=== PATIENT | female | born 1945 | race American Indian/Alaskan Native ===

== ENCOUNTER 2016-02-16 16:35 | Emergency (ER) | payer MEDICARE ==
[2016-02-16 16:47] VITALS: BP 133/81
--- NOTE | 2016-02-16 21:39 | Emergency Department Report ---
- General Chief complaint: Skin/Abscess/Foreign Body Stated complaint: COTTON BALL LODGE IN NOSE Time Seen by Provider: 02/16/16 21:17 Source: patient Mode of arrival: Ambulatory Limitations: No Limitations - History of Present Illness Initial comments: 70-year-old female past medical history schizophrenia presents with complaint of 2-3 days of sinus congestion. Patient states she stuck cotton ball up left side nose due to runny nose and could not extract it at home. Patient states she stuck it in her nose at approximately 1 PM today. Denies any fever or chills, states she has been sneezing frequently lately. Cotton ball visible on external inspection of left nostril where she feels pressure. Patient awake alert and oriented 3, fully cooperative. MD complaint: other (cotton ball) Onset/Timin -: hour(s) Tetanus Up to Date: yes Severity: mild Severity scale (0 -10): 2 Quality: other (left nostril pressure) Consistency: constant Improves with: none Worsens with: none Context: none Associated symptoms: denies other symptoms Treatments Prior to Arrival: none - Related Data Home Medications Medication Instructions Recorded Confirmed Last Taken Ziprasidone [Geodon] 40 mg PO DAILY 09/26/14 10/29/15 10/28/15 Mirabegron [Myrbetriq] 25 mg PO QDAY 10/29/15 11/01/15 2 Weeks Ago Nitrofurantoin [place]/M-Cryst 100 mg PO Q12HR 10/29/15 11/01/15 1 Week Ago [Macrobid CAP] Benztropine [Cogentin] 1 tab PO BID 11/01/15 11/01/15 10/28/15 Previous Rx's Medication Instructions Recorded Last Taken Type Famotidine [Pepcid] 20 mg PO BID #60 tablet 09/13/14 1 Month Ago Rx traMADol [Ultram 50 MG tab] 50 mg PO Q6HR PRN #20 tablet 01/04/15 1 Month Ago Rx Acetaminophen [Mapap] 500 mg PO Q8HR PRN #25 capsule 07/14/15 2 Weeks Ago Rx Amoxicillin/K Clav Tab [Augmentin 1 tab PO Q12HR #20 tab 02/16/16 Unknown Rx 875 mg] Azelastine 0.1% (Nf) [Astelin (Nf)] 137 mcg NS QDAY #1 bottle 02/16/16 Unknown Rx Ibuprofen [Motrin] 400 mg PO Q8H PRN #20 tablet 02/16/16 Unknown Rx Allergies Allergy/AdvReac Type Severity Reaction Status Date / Time No Known Allergies Allergy Verified 02/24/14 10:35 Abscess Boil HPI - HPI Chief Complaint: Skin/Abscess/Foreign Body Stated Complaint: COTTON BALL LODGE IN NOSE Time Seen by Provider: 02/16/16 21:17 Home Medications: Home Medications Medication Instructions Recorded Confirmed Last Taken Ziprasidone [Geodon] 40 mg PO DAILY 09/26/14 10/29/15 10/28/15 Mirabegron [Myrbetriq] 25 mg PO QDAY 10/29/15 11/01/15 2 Weeks Ago Nitrofurantoin [place]/M-Cryst 100 mg PO Q12HR 10/29/15 11/01/15 1 Week Ago [Macrobid CAP] Benztropine [Cogentin] 1 tab PO BID 11/01/15 11/01/15 10/28/15 Previous Rx's Medication Instructions Recorded Last Taken Type Famotidine [Pepcid] 20 mg PO BID #60 tablet 09/13/14 1 Month Ago Rx traMADol [Ultram 50 MG tab] 50 mg PO Q6HR PRN #20 tablet 01/04/15 1 Month Ago Rx Acetaminophen [Mapap] 500 mg PO Q8HR PRN #25 capsule 07/14/15 2 Weeks Ago Rx Amoxicillin/K Clav Tab [Augmentin 1 tab PO Q12HR #20 tab 02/16/16 Unknown Rx 875 mg] Azelastine 0.1% (Nf) [Astelin (Nf)] 137 mcg NS QDAY #1 bottle 02/16/16 Unknown Rx Ibuprofen [Motrin] 400 mg PO Q8H PRN #20 tablet 02/16/16 Unknown Rx Allergies/Adverse Reactions: Allergies Allergy/AdvReac Type Severity Reaction Status Date / Time No Known Allergies Allergy Verified 02/24/14 10:35 ED Review of Systems ROS: Stated complaint: COTTON BALL LODGE IN NOSE Other details as noted in HPI Constitutional: denies: chills, fever Eyes: denies: eye pain, eye discharge, vision change ENT: congestion (left-sided nostril pressure). denies: ear pain, throat pain Respiratory: denies: cough, shortness of breath, wheezing Cardiovascular: denies: chest pain, palpitations Endocrine: no symptoms reported Gastrointestinal: denies: abdominal pain, nausea, diarrhea Genitourinary: denies: urgency, dysuria, discharge Musculoskeletal: denies: back pain, joint swelling, arthralgia Skin: denies: rash, lesions Neurological: denies: headache, weakness, paresthesias Psychiatric: denies: anxiety, depression Hematological/Lymphatic: denies: easy bleeding, easy bruising ED Past Medical Hx - Past Medical History Hx Hypertension: Yes Hx Heart Attack/AMI: No Hx GERD: Yes Hx Liver Disease: No Hx Renal Disease: No Hx Sickle Cell Disease: No Hx Arthritis: Yes Hx Seizures: No Hx Psychiatric Treatment: Yes (schizophrenia) Hx Asthma: Yes Hx COPD: No Hx HIV: No Additional medical history: Heart racing - Surgical History Hx Pacemaker: No Hx Internal Defibrillator: No Additional Surgical History: hemmorhoidectomy. tubal ligation - Social History Smoking Status: Never Smoker - Medications Home Medications: Home Medications Medication Instructions Recorded Confirmed Last Taken Type Famotidine [Pepcid] 20 mg PO BID #60 tablet 09/13/14 11/01/15 1 Month Ago Rx Ziprasidone [Geodon] 40 mg PO DAILY 09/26/14 10/29/15 10/28/15 History traMADol [Ultram 50 MG tab] 50 mg PO Q6HR PRN #20 tablet 01/04/15 11/01/15 1 Month Ago Rx Acetaminophen [Mapap] 500 mg PO Q8HR PRN #25 capsule 07/14/15 11/01/15 2 Weeks Ago Rx Mirabegron [Myrbetriq] 25 mg PO QDAY 10/29/15 11/01/15 2 Weeks Ago History Nitrofurantoin [place]/M-Cryst 100 mg PO Q12HR 10/29/15 11/01/15 1 Week Ago History [Macrobid CAP] Benztropine [Cogentin] 1 tab PO BID 11/01/15 11/01/15 10/28/15 History Amoxicillin/K Clav Tab [Augmentin 1 tab PO Q12HR #20 tab 02/16/16 Unknown Rx 875 mg] Azelastine 0.1% (Nf) [Astelin (Nf)] 137 mcg NS QDAY #1 bottle 02/16/16 Unknown Rx Ibuprofen [Motrin] 400 mg PO Q8H PRN #20 tablet 02/16/16 Unknown Rx ED Physical Exam - General Limitations: No Limitations General appearance: alert, in no apparent distress - Head Head exam: Present: atraumatic, normocephalic - Eye Eye exam: Present: normal appearance - ENT ENT exam: Present: mucous membranes moist, other (visible cotton ball in the left nostril) - Neck Neck exam: Present: normal inspection - Respiratory Respiratory exam: Present: normal lung sounds bilaterally. Absent: respiratory distress - Cardiovascular Cardiovascular Exam: Present: regular rate, normal rhythm. Absent: systolic murmur, diastolic murmur, rubs, gallop - GI/Abdominal GI/Abdominal exam: Present: soft, normal bowel sounds - Extremities Exam Extremities exam: Present: normal inspection - Back Exam Back exam: Present: normal inspection - Neurological Exam Neurological exam: Present: alert, oriented X3 - Psychiatric Psychiatric exam: Present: normal affect, normal mood - Skin Skin exam: Present: warm, dry, intact, normal color. Absent: rash ED Course Vital Signs 02/16/16 16:43 Temperature 98.8 F Pulse Rate 70 Respiratory 16 Rate Blood Pressure 133/81 O2 Sat by Pulse 97 Oximetry - Foreign Body Removal Nose Location: nostril (L) Suspected Foreign Body: other (multiple) Foreign Body Removal Technique: alligator Patient Tolerated Procedure: well Complications: none (, Vikas removed easily no bleeding no signs of pus drainage , patient felt immediate relief after extraction, easily extracted) ED Medical Decision Making - Medical Decision Making A/P: Foreign body removal left nostril, cotton ball 1-procedure tolerated well no bleeding no pus drainage, patient feels immediate relief 2-will treat patient for sinusitis empirically, Augmentin twice a day 10 days 3-follow-up with primary care doctor 4-I advised patient to return to the ED if she experiences fever chills or pus drainage from nostrils Critical care attestation.: If time is entered above; I have spent that time in minutes in the direct care of this critically ill patient, excluding procedure time. ED Disposition Clinical Impression: Foreign body in nostril, initial encounter Qualifiers: Encounter type: initial encounter Qualified Code(s): T17.1XXA - Foreign body in nostril, initial encounter Disposition: DISCHARGED TO HOME OR SELFCARE Is pt being admited?: No Does the pt Need Aspirin: No Condition: Stable Instructions: Sinusitis (ED), Nasal Foreign Body in Children (ED) Additional Instructions: Nasal foreign body children instructions given, meant for adult, no option for adults Prescriptions: Azelastine 0.1% (Nf) [Astelin (Nf)] 137 mcg NS QDAY #1 bottle Amoxicillin/K Clav Tab [Augmentin 875 mg] 1 tab PO Q12HR #20 tab Ibuprofen [Motrin] 400 mg PO Q8H PRN #20 tablet PRN Reason: Pain Time of Disposition: 21:42
== END 2016-02-16 21:44 | disposition home or self-care (01) ==
LOC: ED 16:35
DX: T17.1XXA Foreign body in nostril, initial encounter (principal); K21.9 Gastro-esophageal reflux disease without esophagitis; F20.9 Schizophrenia, unspecified; J45.909 Unspecified asthma, uncomplicated; X58.XXXA Exposure to other specified factors, initial encounter; Y93.9 Activity, unspecified; Y92.9 Unspecified place or not applicable; Y99.9 Unspecified external cause status

== ENCOUNTER 2016-11-28 21:35 | Emergency (ER) | payer MEDICARE ==
[2016-11-28 23:48] VITALS: BP 130/68
--- NOTE | 2016-11-29 00:51 | XRay Report ---
FINAL REPORT EXAM: XR FOOT 2V RT HISTORY: swollen rt foot TECHNIQUE: Two views of the right foot were submitted. FINDINGS: There is no evidence of acute fracture or dislocation. There is moderate arthritic changes at the level of the 2nd metatarsophalangeal joint. Additional arthritic changes are seen the level of the medial cuneiform 1st metatarsal joint. There is additional arthritic changes of the interphalangeal joint of the great toe. The soft tissues reveal generalized mild swelling around the entire foot. IMPRESSION: Polyarticular arthritic changes with generalized soft tissue swelling around the foot. No evidence of acute fracture or osteomyelitis.
--- NOTE | 2016-11-29 01:49 | Emergency Department Report ---
ED Lower Extremity HPI - General Chief Complaint: Extremity Injury, Lower Stated Complaint: FOOT INJURY Time Seen by Provider: 11/29/16 01:37 Source: patient Mode of arrival: Ambulatory Limitations: No Limitations - History of Present Illness Initial Comments: pt is a 71 y/o aaf who presents foot pain and swelling x 1 month pt denies hx of dm II , does endorse hx of arthitis and recurrent tinea pedis, pt denies fall injury or trauma, symptoms at this time, include pain with palpation and ambulation and clear drainage intermittently, pt has been self treating with soap and water bid with peroxide rinses. pt does remain ambulatory to baseline per patient MD Complaint: other (right great toe and foot tinea cellulitis ) Onset/Timin -: month(s) Injury: Toes: Right (great and 2nd toe space ) Type of Injury: other (stasis ulcer ) Place: home Severity: moderate Severity scale (0 -10): 3 Improves With: rest Worsens With: movement, palpation Associated Symptoms: swelling, ambulatory. denies: snap/pop sensation, numbness , tingling - Related Data Home Medications Medication Instructions Recorded Confirmed Last Taken Ziprasidone [Geodon] 40 mg PO DAILY 09/26/14 10/29/15 10/28/15 Mirabegron [Myrbetriq] 25 mg PO QDAY 10/29/15 11/01/15 2 Weeks Ago Nitrofurantoin [place]/M-Cryst 100 mg PO Q12HR 10/29/15 11/01/15 1 Week Ago [Macrobid CAP] Benztropine [Cogentin] 1 tab PO BID 11/01/15 11/01/15 10/28/15 Previous Rx's Medication Instructions Recorded Last Taken Type Famotidine [Pepcid] 20 mg PO BID #60 tablet 09/13/14 1 Month Ago Rx traMADol [Ultram 50 MG tab] 50 mg PO Q6HR PRN #20 tablet 01/04/15 1 Month Ago Rx Amoxicillin/K Clav Tab [Augmentin 1 tab PO Q12HR #20 tab 02/16/16 Unknown Rx 875 mg] Azelastine 0.1% (Nf) [Astelin (Nf)] 137 mcg NS QDAY #1 bottle 02/16/16 Unknown Rx Ibuprofen [Motrin] 400 mg PO Q8H PRN #20 tablet 02/16/16 Unknown Rx Acetaminophen [Mapap] 500 mg PO Q8HR PRN #25 capsule 11/29/16 Unknown Rx Cephalexin [Keflex] 500 mg PO TID #30 capsule 11/29/16 Unknown Rx Terbinafine HCl [Lamisil At] 1 applicator TP BID #1 tube 11/29/16 Unknown Rx Allergies Allergy/AdvReac Type Severity Reaction Status Date / Time No Known Allergies Allergy Verified 02/24/14 10:35 ED Review of Systems ROS: Stated complaint: FOOT INJURY Other details as noted in HPI Constitutional: denies: chills, fever Eyes: denies: eye pain, eye discharge, vision change ENT: denies: ear pain, throat pain Respiratory: denies: cough, shortness of breath, wheezing Cardiovascular: denies: chest pain, palpitations Endocrine: no symptoms reported Gastrointestinal: denies: abdominal pain, nausea, diarrhea Genitourinary: denies: urgency, dysuria, discharge Musculoskeletal: arthralgia (bilat feet ), myalgia Skin: other (tinea right foot ) Neurological: denies: headache, weakness, paresthesias Psychiatric: denies: anxiety, depression Hematological/Lymphatic: denies: easy bleeding, easy bruising ED Past Medical Hx - Past Medical History Previous Medical History?: Yes Hx Hypertension: Yes Hx Heart Attack/AMI: No Hx GERD: Yes Hx Liver Disease: No Hx Renal Disease: No Hx Sickle Cell Disease: No Hx Arthritis: Yes Hx Seizures: No Hx Psychiatric Treatment: Yes (schizophrenia) Hx Asthma: Yes Hx COPD: No Hx HIV: No Additional medical history: Heart racing - Surgical History Past Surgical History?: Yes Hx Pacemaker: No Hx Internal Defibrillator: No Additional Surgical History: hemmorhoidectomy. tubal ligation - Social History Smoking Status: Never Smoker Substance Use Type: None - Medications Home Medications: Home Medications Medication Instructions Recorded Confirmed Last Taken Type Famotidine [Pepcid] 20 mg PO BID #60 tablet 09/13/14 11/01/15 1 Month Ago Rx Ziprasidone [Geodon] 40 mg PO DAILY 09/26/14 10/29/15 10/28/15 History traMADol [Ultram 50 MG tab] 50 mg PO Q6HR PRN #20 tablet 01/04/15 11/01/15 1 Month Ago Rx Mirabegron [Myrbetriq] 25 mg PO QDAY 10/29/15 11/01/15 2 Weeks Ago History Nitrofurantoin [place]/M-Cryst 100 mg PO Q12HR 10/29/15 11/01/15 1 Week Ago History [Macrobid CAP] Benztropine [Cogentin] 1 tab PO BID 11/01/15 11/01/15 10/28/15 History Amoxicillin/K Clav Tab [Augmentin 1 tab PO Q12HR #20 tab 02/16/16 Unknown Rx 875 mg] Azelastine 0.1% (Nf) [Astelin (Nf)] 137 mcg NS QDAY #1 bottle 02/16/16 Unknown Rx Ibuprofen [Motrin] 400 mg PO Q8H PRN #20 tablet 02/16/16 Unknown Rx Acetaminophen [Mapap] 500 mg PO Q8HR PRN #25 capsule 11/29/16 Unknown Rx Cephalexin [Keflex] 500 mg PO TID #30 capsule 11/29/16 Unknown Rx Terbinafine HCl [Lamisil At] 1 applicator TP BID #1 tube 11/29/16 Unknown Rx ED Physical Exam - General Limitations: No Limitations General appearance: alert, in no apparent distress - Head Head exam: Present: atraumatic, normocephalic - Eye Eye exam: Present: normal appearance - ENT ENT exam: Present: mucous membranes moist - Neck Neck exam: Present: normal inspection - Respiratory Respiratory exam: Present: normal lung sounds bilaterally. Absent: respiratory distress - Cardiovascular Cardiovascular Exam: Present: regular rate, normal rhythm. Absent: systolic murmur, diastolic murmur, rubs, gallop - GI/Abdominal GI/Abdominal exam: Present: soft, normal bowel sounds - Rectal Rectal exam: Present: deferred - Extremities Exam Extremities exam: Present: full ROM, tenderness (right dorsal foot ), normal capillary refill. Absent: pedal edema, joint swelling, calf tenderness - Expanded Lower Extremity Exam Right Foot/Toe exam: Present: tenderness (right great and index toes tinea stasis ulcer less than 1 cm ), swelling. Absent: abrasion, laceration, ecchymosis, deformity (mild hallux valgus ), crepidus, dislocation, erythema, amputation, puncture wound, foreign body, calcaneal tenderness, tenderness at base of 5th metatarsal, nail avulsion, subungual hematoma Neuro vascular tendon exam: Present: no vascular compromise. Absent: pulse deficit, abnormal cap refill, motor deficit, sensory deficit, tendon deficit, extremity cold to touch, pallor, abnormal 2-point discrimination, decreased fine /light touch, foot drop, peroneal nerve deficit, significant pain with passive ROM of distal joint Gait: Positive: observed and normal - Back Exam Back exam: Present: normal inspection, full ROM. Absent: tenderness, CVA tenderness (R), CVA tenderness (L), muscle spasm, paraspinal tenderness, vertebral tenderness, rash noted - Neurological Exam Neurological exam: Present: alert, oriented X3, CN II-XII intact, normal gait, reflexes normal - Psychiatric Psychiatric exam: Present: normal affect, normal mood - Skin Skin exam: Present: warm, dry, normal color, other (small stasis ulcer right great and 2nd to space no drainage no erythema ). Absent: rash ED Course Vital Signs 11/28/16 23:45 Temperature 98.3 F Pulse Rate 64 Respiratory 16 Rate Blood Pressure 130/68 O2 Sat by Pulse 98 Oximetry ED Lower Extremity MDM - Radiology Data Radiology results: image reviewed no evidence of acute fracture or osteomyelitis - Medical Decision Making pt is a 71 y/o aaf who presents foot pain and swelling x 1 month pt denies hx of dm II , does endorse hx of arthitis and recurrent tinea pedis, pt denies fall injury or trauma, symptoms at this time, include pain with palpation and ambulation and clear drainage intermittently, pt has been self treating with soap and water bid with peroxide rinses. pt does remain ambulatory to baseline per patient, exam: mild dorsal great toe swelling no erythema no ecchymosis wound less than 1 cm no drainage pink bed, no eschar, mild tinea , ppepb+2, rom intact, pt is ambulatory gait is steady, plan: podiatry consult, keflex po tid x 7 days , lamasil x 14 days, wound care soap and water bid, follow up with primary care doctor in 3 days for wound check , pt and adult son verbalized agreement and understanding with same. Critical care attestation.: If time is entered above; I have spent that time in minutes in the direct care of this critically ill patient, excluding procedure time. ED Disposition Clinical Impression: Cellulitis of right foot, Arthritis of right foot Tinea pedis Qualifiers: Laterality: right Qualified Code(s): B35.3 - Tinea pedis Disposition: DC-01 TO HOME OR SELFCARE Is pt being admited?: No Does the pt Need Aspirin: No Condition: Good Instructions: Cellulitis (ED), Tinea Pedis (ED) Prescriptions: Acetaminophen [Mapap] 500 mg PO Q8HR PRN #25 capsule PRN Reason: Pain Cephalexin [Keflex] 500 mg PO TID #30 capsule Terbinafine HCl [Lamisil At] 1 applicator TP BID #1 tube Referrals: PRIMARY CARE,MD [Primary Care Provider] - 3-5 Days Forms: Work/School Release Form(ED) Time of Disposition: 02:05
== END 2016-11-29 02:20 | disposition home or self-care (01) ==
LOC: ED 21:35
DX: L03.115 Cellulitis of right lower limb (principal); B35.3 Tinea pedis; M25.571 Pain in right ankle and joints of right foot; I10 Essential (primary) hypertension; K21.9 Gastro-esophageal reflux disease without esophagitis; J45.909 Unspecified asthma, uncomplicated
CPT/HCPCS: 99283

== ENCOUNTER 2018-08-30 04:22 | Emergency (ER) | payer MEDICARE ==
[2018-08-30] MEDS ORDERED: TYLENOL PO ONE (06:38)
--- NOTE | 2018-08-30 06:39 | Emergency Department Report ---
ED General Adult HPI - General Chief complaint: Pain General Stated complaint: GENERALIZE PAIN Time Seen by Provider: 08/30/18 06:01 Source: patient, EMS, RN notes reviewed, old records reviewed Mode of arrival: Ambulatory Limitations: No Limitations - History of Present Illness Initial comments: This is a 73-year-old female. The patient reportedly has a past medical history of arthritis, asthma, COPD, CVA, GERD, schizophrenia. Patient is reportedly brought to the hospital by emergency medical services. Patient reports that she was walking 4 days ago, and accidentally slipped, and landed forward, on the right side of her neck. She did not hit her head. She is not complaining of headache. She applied a right paraspinal neck pain. She says the pain radiates down. She indicates the pain is throbbing, and increases with palpation and decreases with rest. The patient denies extremity weakness or numbness. She currently denies chest pain, abdominal pain, shortness of breath. She currently denies urinary symptoms. The patient is not sure she is taking any medications for her pain at home. -: days(s) Location: neck Radiation: other Quality: other Consistency: other Improves with: other Worsens with: other - Related Data Home Medications Medication Instructions Recorded Confirmed Last Taken Ziprasidone [Geodon] 40 mg PO DAILY 09/26/14 10/29/15 10/28/15 Mirabegron [Myrbetriq] 25 mg PO QDAY 10/29/15 11/01/15 2 Weeks Ago ~10/18/15 Nitrofurantoin Burt/M-Cryst 100 mg PO Q12HR 10/29/15 11/01/15 1 Week Ago [Macrobid CAP] ~10/25/15 Benztropine [Cogentin] 1 tab PO BID 11/01/15 11/01/15 10/28/15 Previous Rx's Medication Instructions Recorded Last Taken Type Famotidine [Pepcid] 20 mg PO BID #60 tablet 09/13/14 1 Month Ago Rx ~10/01/15 traMADol [Ultram 50 MG tab] 50 mg PO Q6HR PRN #20 tablet 01/04/15 1 Month Ago Rx ~10/01/15 Amoxicillin/K Clav Tab [Augmentin 1 tab PO Q12HR #20 tab 02/16/16 Unknown Rx 875 mg] Azelastine 0.1% (Nf) [Astelin (Nf)] 137 mcg NS QDAY #1 bottle 02/16/16 Unknown Rx Ibuprofen [Motrin] 400 mg PO Q8H PRN #20 tablet 02/16/16 Unknown Rx Acetaminophen [Mapap] 500 mg PO Q8HR PRN #25 capsule 11/29/16 Unknown Rx Cephalexin [Keflex] 500 mg PO TID #30 capsule 11/29/16 Unknown Rx Terbinafine HCl [Lamisil At] 1 applicator TP BID #1 tube 11/29/16 Unknown Rx Diphenoxylate/Atropine [Lomotil] 2 tab PO QID PRN #20 tablet 06/01/18 Unknown Rx Famotidine [Pepcid] 20 mg PO BID #20 tablet 06/01/18 Unknown Rx HYDROcodone/APAP 5-325 [[place] 1 each PO Q6HR PRN #10 tablet 06/01/18 Unknown Rx 5/325] Promethazine [Phenergan TAB] 25 mg PO Q6HR PRN #20 tab 06/01/18 Unknown Rx Promethazine [Phenergan] 25 mg TN Q6HR PRN #5 supp.rect 06/01/18 Unknown Rx Allergies Allergy/AdvReac Type Severity Reaction Status Date / Time No Known Allergies Allergy Verified 08/30/18 04:35 ED Review of Systems ROS: Stated complaint: GENERALIZE PAIN Other details as noted in HPI Constitutional: denies: fever Eyes: denies: eye discharge ENT: denies: epistaxis Respiratory: denies: cough Cardiovascular: denies: chest pain Gastrointestinal: denies: abdominal pain Genitourinary: denies: dysuria Musculoskeletal: arthralgia Skin: denies: lesions Neurological: denies: headache, abnormal gait ED Past Medical Hx - Past Medical History Previous Medical History?: Yes Hx Hypertension: Yes Hx CVA: Yes Hx Heart Attack/AMI: No Hx GERD: Yes Hx Liver Disease: No Hx Renal Disease: No Hx Sickle Cell Disease: No Hx Arthritis: Yes Hx Seizures: No Hx Psychiatric Treatment: Yes (schizophrenia) Hx Asthma: Yes Hx COPD: No Hx HIV: No Additional medical history: Heart racing - Surgical History Past Surgical History?: Yes Hx Pacemaker: No Hx Internal Defibrillator: No Additional Surgical History: hemmorhoidectomy. tubal ligation. cardiac ablasion - Social History Smoking Status: Never Smoker Substance Use Type: None - Medications Home Medications: Home Medications Medication Instructions Recorded Confirmed Last Taken Type Famotidine [Pepcid] 20 mg PO BID #60 tablet 09/13/14 11/01/15 1 Month Ago Rx ~10/01/15 Ziprasidone [Geodon] 40 mg PO DAILY 09/26/14 10/29/15 10/28/15 History traMADol [Ultram 50 MG tab] 50 mg PO Q6HR PRN #20 tablet 01/04/15 11/01/15 1 Month Ago Rx ~10/01/15 Mirabegron [Myrbetriq] 25 mg PO QDAY 10/29/15 11/01/15 2 Weeks Ago History ~10/18/15 Nitrofurantoin Burt/M-Cryst 100 mg PO Q12HR 10/29/15 11/01/15 1 Week Ago History [Macrobid CAP] ~10/25/15 Benztropine [Cogentin] 1 tab PO BID 11/01/15 11/01/15 10/28/15 History Amoxicillin/K Clav Tab [Augmentin 1 tab PO Q12HR #20 tab 02/16/16 Unknown Rx 875 mg] Azelastine 0.1% (Nf) [Astelin (Nf)] 137 mcg NS QDAY #1 bottle 02/16/16 Unknown Rx Ibuprofen [Motrin] 400 mg PO Q8H PRN #20 tablet 02/16/16 Unknown Rx Acetaminophen [Mapap] 500 mg PO Q8HR PRN #25 capsule 11/29/16 Unknown Rx Cephalexin [Keflex] 500 mg PO TID #30 capsule 11/29/16 Unknown Rx Terbinafine HCl [Lamisil At] 1 applicator TP BID #1 tube 11/29/16 Unknown Rx Diphenoxylate/Atropine [Lomotil] 2 tab PO QID PRN #20 tablet 06/01/18 Unknown Rx Famotidine [Pepcid] 20 mg PO BID #20 tablet 06/01/18 Unknown Rx HYDROcodone/APAP 5-325 [[place] 1 each PO Q6HR PRN #10 tablet 06/01/18 Unknown Rx 5/325] Promethazine [Phenergan TAB] 25 mg PO Q6HR PRN #20 tab 06/01/18 Unknown Rx Promethazine [Phenergan] 25 mg TN Q6HR PRN #5 supp.rect 06/01/18 Unknown Rx ED Physical Exam - General Limitations: No Limitations General appearance: alert, in no apparent distress, other (patient sleeping in stretcher, in no acute distress.) - Head Head exam: Present: atraumatic, normocephalic - Eye Eye exam: Present: normal appearance, other (visual acuity intact to finger counting and color perception at a close distance.). Absent: nystagmus - ENT ENT exam: Present: normal exam, normal orophraynx, mucous membranes moist, TM's normal bilaterally, normal external ear exam, other (there is no mastoid tenderness.) - Neck Neck exam: Present: normal inspection, full ROM, other (there is right-sided paraspinal tenderness. There is no midline cervical spine tenderness.) - Respiratory Respiratory exam: Present: normal lung sounds bilaterally. Absent: respiratory distress - Cardiovascular Cardiovascular Exam: Present: normal rhythm, bradycardia, normal heart sounds. Absent: tachycardia, irregular rhythm, systolic murmur, diastolic murmur, rubs, gallop - GI/Abdominal GI/Abdominal exam: Present: soft. Absent: distended, tenderness, guarding, rebound, rigid, pulsatile mass - Extremities Exam Extremities exam: Present: normal inspection, full ROM, other (2+ pulses noted in the bilateral upper, lower extremities. Compartments soft. No long bony tenderness. The pelvis is stable.). Absent: calf tenderness - Back Exam Back exam: Present: normal inspection, full ROM, paraspinal tenderness. Absent: tenderness, CVA tenderness (R), CVA tenderness (L) - Neurological Exam Neurological exam: Present: alert, normal gait, other (Extraocular movements intact. Tongue midline. No facial droop. Facial sensation intact to light touch in the V1, V2, V3 distribution bilaterally. 5 and 5 strength in 4 extremities.. Sensation is intact to light touch in 4 extremities.). Absent: motor sensory deficit - Psychiatric Psychiatric exam: Present: normal affect, normal mood - Skin Skin exam: Present: warm, dry, intact, normal color. Absent: rash ED Course Vital Signs 08/30/18 08/30/18 04:28 06:00 Temperature 98.1 F Pulse Rate 58 L Respiratory 18 16 Rate Blood Pressure 134/80 O2 Sat by Pulse 100 99 Oximetry ED Medical Decision Making - Lab Data Vital Signs 08/30/18 08/30/18 04:28 06:00 Temperature 98.1 F Pulse Rate 58 L Respiratory 18 16 Rate Blood Pressure 134/80 O2 Sat by Pulse 100 99 Oximetry - Radiology Data Radiology results: report reviewed, image reviewed Noncontrast CT scan of the cervical spine is negative for acute disease - Medical Decision Making Differential diagnosis, including not limited to: Arthritis, sprain, strain, fracture, dislocation Assessment and plan: 73-year-old female who endorses right-sided paraspinal neck pain after reported low mechanism mechanical fall 4 days ago. The patient is afebrile with reassuring vital signs. She walks with a steady gait without assistance. Her physical exam is unremarkable. She does not endorse any other acute or emergent complaints. On multiple re-evaluations, noted to be sleeping comfortably, and stretcher, and in no acute distress. Does not appear to have an emergent medical condition at this time. Her pain is treated. Patient medically suitable to be discharged with close outpatient follow-up. Case management consult has been placed given history of fall at home to see if patient is eligible for home health resources. However, she does not require further medical evaluation in the emergency room. Critical care attestation.: If time is entered above; I have spent that time in minutes in the direct care of this critically ill patient, excluding procedure time. ED Disposition Clinical Impression: History of fall, Pain in paraspinal region Disposition: DC-01 TO HOME OR SELFCARE Is pt being admited?: No Does the pt Need Aspirin: No Condition: Stable Additional Instructions: Continue outpatient medications. Patient may take Tylenol, [id number], 500 mg, by mouth, every 4-6 hours, as needed for pain. Pain typically gets worse before gets better after mechanical fall. Therefore, make certain to avoid heavy lifting, and strenuous physical activities. Please follow up with a primary care doctor within the next 7-[address] scan of the neck demonstrated no acute emergent condition at this time, but demonstrated incidental nonemergent findings which should be followed up by her primary care doctor within the next 4-6 weeks. Please have your primary care doctor contact the medical records department to obtain CT scan interpretation. Please return to the emergency room right away with new, worsening or different symptoms not present on the initial emergency room evaluation. Referrals: ANTONIA MORTON [Primary Care Provider] - 3-5 Days
--- NOTE | 2018-08-30 07:46 | Cat Scan Report ---
CT cervical spine wo con INDICATION / CLINICAL INFORMATION: fell onto right side on necl now with rigth sided. TECHNIQUE: All CT scans at this location are performed using CT dose reduction for ALARA by means of automated e xposure control. COMPARISON: None available. FINDINGS: No cervical fractures. Bony alignment is well maintained. There are degenerative changes at C5-C6. Incidental note is made of an 8mm nodular density in the right upper lobe. IMPRESSION: 1. Mild degenerative changes of the cervical spine without fracture. 2. Right upper lobe pulmonary nodule. Signer Name: Alex Yeh MD Signed: 08/30/2018 7:41 AM Workstation Name: [id number]
[2018-08-30 08:29] VITALS: BP 155/75
== END 2018-08-30 08:35 | disposition home or self-care (01) ==
LOC: ED 04:22
DX: M54.2 Cervicalgia (principal); M54.9 Dorsalgia, unspecified; I10 Essential (primary) hypertension; K21.9 Gastro-esophageal reflux disease without esophagitis; M19.90 Unspecified osteoarthritis, unspecified site; F20.9 Schizophrenia, unspecified; J44.9 Chronic obstructive pulmonary disease, unspecified; Z86.73 Personal history of transient ischemic attack (TIA), and cerebral infarction without residual deficits; Z91.81 History of falling; Z98.51 Tubal ligation status; Z98.890 Other specified postprocedural states; Z79.899 Other long term (current) drug therapy; W01.0XXA Fall on same level from slipping, tripping and stumbling without subsequent striking against object, initial encounter; Y93.89 Activity, other specified; Y92.89 Other specified places as the place of occurrence of the external cause; Y99.8 Other external cause status
CPT/HCPCS: 72125

== ENCOUNTER 2018-10-06 00:46 | Emergency (ER) | payer MEDICARE ==
[2018-10-06] MEDS ORDERED: ATIVAN IM STA (01:45)
--- NOTE | 2018-10-06 01:47 | Emergency Department Report ---
ED General Adult HPI - General Chief complaint: Neck Pain/Injury Stated complaint: MUSCLE SPASM IN NECK Time Seen by Provider: 10/06/18 01:36 Source: patient, EMS (verbal report received from EMS.ems notes not available at time of chart dictation), RN notes reviewed, old records reviewed Mode of arrival: Ambulatory Limitations: No Limitations - History of Present Illness Initial comments: This is a 73-year-old female whom I evaluated the past. Her past history includes asthma, arthritis, COPD, stroke, GERD, schizophrenia. I saw this patient last month for neck pain after a reported mechanical fall. The patient had a CT scan of her cervical spine which was negative for acute disease. I ordered the patient for case management consult, and she had a referral for home health care that was completed with [facility] As per prior documentation, the patient declined services. Today, the patient is brought to the hospital by EMS for chronic right-sided spasming neck pain. As per verbal report from EMS, patient was recently seen at [facility], [facility], and prescribed medication for her neck spasms. Apparently, the patient's monthly check has not arrived, and she can therefore not afford the prescribed medications. The patient states that she feels like her neck is spasming. She indicates this is chronic since last month. It does not radiate anywhere. She denies other pain elsewhere. -: Gradual, week(s) Location: neck Quality: other (spasminging spasm) Consistency: constant Improves with: medication Worsens with: movement - Related Data Home Medications Medication Instructions Recorded Confirmed Last Taken Ziprasidone [Geodon] 20 mg PO DAILY 09/26/14 10/06/18 10/28/15 Benztropine [Cogentin] 1 tab PO BID 11/01/15 10/06/18 10/28/15 FLUoxetine HCL [PROzac] 40 mg PO QDAY 10/06/18 10/06/18 Unknown Ferrous Sulfate [Ferrous Sulfate 324 mg PO DAILY 10/06/18 10/06/18 Unknown 324 MG] amLODIPine [Norvasc] 5 mg PO DAILY 10/06/18 10/06/18 Unknown Allergies Allergy/AdvReac Type Severity Reaction Status Date / Time No Known Allergies Allergy Verified 08/30/18 04:35 ED Review of Systems ROS: Stated complaint: MUSCLE SPASM IN NECK Other details as noted in HPI Constitutional: denies: fever Eyes: denies: eye discharge ENT: denies: epistaxis Respiratory: denies: cough Cardiovascular: denies: chest pain Gastrointestinal: denies: abdominal pain, nausea, vomiting Genitourinary: denies: urgency, dysuria Musculoskeletal: myalgia Skin: denies: lesions Neurological: denies: weakness, numbness, paresthesias Psychiatric: anxiety ED Past Medical Hx - Past Medical History Previous Medical History?: Yes Hx Hypertension: Yes Hx CVA: Yes Hx Heart Attack/AMI: No Hx GERD: Yes Hx Liver Disease: No Hx Renal Disease: No Hx Sickle Cell Disease: No Hx Arthritis: Yes Hx Seizures: No Hx Psychiatric Treatment: Yes (schizophrenia) Hx Asthma: Yes Hx COPD: No Hx HIV: No Additional medical history: Heart racing - Surgical History Past Surgical History?: Yes Hx Pacemaker: No Hx Internal Defibrillator: No Additional Surgical History: hemmorhoidectomy. tubal ligation. cardiac ablasion - Social History Smoking Status: Never Smoker Substance Use Type: None - Medications Home Medications: Home Medications Medication Instructions Recorded Confirmed Last Taken Type Ziprasidone [Geodon] 20 mg PO DAILY 09/26/14 10/06/18 10/28/15 History Benztropine [Cogentin] 1 tab PO BID 11/01/15 10/06/18 10/28/15 History FLUoxetine HCL [PROzac] 40 mg PO QDAY 10/06/18 10/06/18 Unknown History Ferrous Sulfate [Ferrous Sulfate 324 mg PO DAILY 10/06/18 10/06/18 Unknown History 324 MG] amLODIPine [Norvasc] 5 mg PO DAILY 10/06/18 10/06/18 Unknown History ED Physical Exam - General Limitations: No Limitations General appearance: alert, anxious - Head Head exam: Present: atraumatic, normocephalic - Eye Eye exam: Present: normal appearance, EOMI. Absent: nystagmus - ENT ENT exam: Present: normal exam, normal orophraynx, mucous membranes moist, normal external ear exam - Neck Neck exam: Present: normal inspection, full ROM. Absent: tenderness, meningism us - Respiratory Respiratory exam: Present: normal lung sounds bilaterally. Absent: respiratory distress - Cardiovascular Cardiovascular Exam: Present: normal rhythm, tachycardia, normal heart sounds. Absent: systolic murmur, diastolic murmur, rubs, gallop - GI/Abdominal GI/Abdominal exam: Present: soft. Absent: distended, tenderness, guarding, rebound, rigid, pulsatile mass - Extremities Exam Extremities exam: Present: normal inspection, full ROM, other (2+ pulses noted in the bilateral upper, lower extremities. Compartments soft. No long bony tenderness. The pelvis is stable.). Absent: pedal edema, joint swelling, calf tenderness - Back Exam Back exam: Present: normal inspection, full ROM. Absent: tenderness, CVA tenderness (R), CVA tenderness (L), paraspinal tenderness, vertebral tenderness - Neurological Exam Neurological exam: Present: alert, normal gait, other (Extraocular movements intact. Tongue midline. No facial droop. Facial sensation intact to light touch in the V1, V2, V3 distribution bilaterally. 5 and 5 strength in 4 extrem ities.. Sensation is intact to light touch in 4 extremities.). Absent: motor sensory deficit - Psychiatric Psychiatric exam: Present: anxious - Skin Skin exam: Present: warm, dry, intact, normal color. Absent: rash ED Course Vital Signs 10/06/18 10/06/18 10/06/18 00:51 00:54 01:49 Temperature 98.4 F 98.4 F 98.3 F Pulse Rate 104 H 100 H 97 H Respiratory 18 18 20 Rate Blood Pressure 133/67 133/67 Blood Pressure 99/64 [Left] O2 Sat by Pulse 96 94 97 Oximetry - Reevaluation(s) Reevaluation #1: 10/06/18 02:03 Differential diagnosis, including not limited to: Chronic musculoskeletal pain, anxiety, electrolyte derangement Assessment and plan: 73-year-old female with chronic musculoskeletal neck pain. She is quite anxious, with some tachycardia, but is otherwise afebrile with reassuring vital signs. Her physical exam today is similar to her prior physical examination. We will obtain screening laboratory studies to exclude electrolyte derangements and myositis. We will treat her with Ativan for anxiety and spasm component. Nursing team has been asked to reconcile her medications. Reevaluation #2: 10/06/18 02:33 Laboratory studies are unremarkable for any acute condition. Elevated CK of 400 reviewed and appreciated, this can be followed up as an outpatient. The patient is resting comfortably, and his stretcher, and appears to be sleeping. She does not appear to be in any acute distress. Vital signs are unremarkable. The patient does not appear to have an emergent medical condition at this time. ED Medical Decision Making - Lab Data Result diagrams: 10/06/18 01:53 10/06/18 01:53 Vital Signs 10/06/18 10/06/18 10/06/18 00:51 00:54 01:49 Temperature 98.4 F 98.4 F 98.3 F Pulse Rate 104 H 100 H 97 H Respiratory 18 18 20 Rate Blood Pressure 133/67 133/67 Blood Pressure 99/64 [Left] O2 Sat by Pulse 96 94 97 Oximetry Labs 10/06/18 10/06/18 10/06/18 01:53 01:53 01:53 WBC 8.7 RBC 3.68 Hgb 11.0 Hct 33.2 MCV 90 MCH 30 MCHC 33 RDW 12.3 L Plt Count 292 Sodium 140 Potassium 4.3 Chloride 100.9 Carbon Dioxide 27 Anion Gap 16 BUN 15 Creatinine 0.6 L Estimated GFR > 60 BUN/Creatinine Ratio 25 Glucose 101 H Calcium 9.6 Magnesium 1.80 Total Creatine Kinase 406 H Salicylates Acetaminophen < 5.0 L Plasma/Serum Alcohol 10/06/18 10/06/18 01:53 01:57 WBC RBC Hgb Hct MCV MCH MCHC RDW Plt Count Sodium Potassium Chloride Carbon Dioxide Anion Gap BUN Creatinine Estimated GFR BUN/Creatinine Ratio Glucose Calcium Magnesium Total Creatine Kinase Salicylates < 0.3 L Acetaminophen Plasma/Serum Alcohol < 0.01 Critical care attestation.: If time is entered above; I have spent that time in minutes in the direct care of this critically ill patient, excluding procedure time. ED Disposition Clinical Impression: Muscle cramps Disposition: -01 TO HOME OR SELFCARE Is pt being admited?: No Does the pt Need Aspirin: No Condition: Stable Instructions: Musculoskeletal Pain (ED) Additional Instructions: Continue outpatient medications. follow up with a primary care doctor within the next month. Patient may alternate [id number] Tylenol and Motrin, taken as directed, with heat packs and ice packs. Return to the emergency room right away with new, worsened or different symptoms, or symptoms not present on the initial emergency room evaluation. Referrals: [facility] [Provider Group] - 3-5 Days
[2018-10-06 02:08] LABS: Hematocrit 33.2 % (30.3-42.9); Mean Corpuscular HGB Conc 33 % (30-34); Mean Corpuscular Volume 90 fl (79-97); Platelet Count 292 K/mm3 (140-440); Red Blood Count 3.68 M/mm3 (3.65-5.03); Red Cell Distribution Width 12.3 % (13.2-15.2)
[2018-10-06 02:27] LABS: BUN/Creatinine Ratio 25; Blood Urea Nitrogen 15 mg/dL (7-17); Calcium 9.6 mg/dL (8.4-10.2); Hemolysis Index 1
[2018-10-06 04:28] VITALS: BP 127/81
[2018-10-06] MEDS ORDERED: COGENTIN PO SCH (10:00)
[2018-10-06] MEDS ORDERED: FEOSOL PO SCH (10:00)
[2018-10-06] MEDS ORDERED: NORVASC PO SCH (10:00)
[2018-10-06] MEDS ORDERED: GEODON PO SCH (10:00)
[2018-10-06] MEDS ORDERED: PROzac PO SCH (10:00)
== END 2018-10-06 04:32 | disposition home or self-care (01) ==
LOC: ED 00:46
DX: R25.2 Cramp and spasm (principal); I10 Essential (primary) hypertension; K21.9 Gastro-esophageal reflux disease without esophagitis; M19.90 Unspecified osteoarthritis, unspecified site; F20.9 Schizophrenia, unspecified; J45.909 Unspecified asthma, uncomplicated; Z98.51 Tubal ligation status; Z86.73 Personal history of transient ischemic attack (TIA), and cerebral infarction without residual deficits; Z79.899 Other long term (current) drug therapy
CPT/HCPCS: 36415; 80048; 82550; 83735; 85027; 96372; 99284; J2060; 80320; G0480

== ENCOUNTER 2019-04-20 05:02 | Emergency (ER) | payer MEDICARE ==
[2019-04-20 05:14] VITALS: BP 143/43
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
== END 2019-04-20 12:20 | disposition home or self-care (01) ==
LOC: ED 05:02
DX: G89.29 Other chronic pain (principal); R20.8 Other disturbances of skin sensation; M79.652 Pain in left thigh; I10 Essential (primary) hypertension; K21.9 Gastro-esophageal reflux disease without esophagitis; M19.90 Unspecified osteoarthritis, unspecified site; F20.9 Schizophrenia, unspecified; J45.909 Unspecified asthma, uncomplicated; Z79.899 Other long term (current) drug therapy; Z86.73 Personal history of transient ischemic attack (TIA), and cerebral infarction without residual deficits; Z98.890 Other specified postprocedural states; Z98.51 Tubal ligation status
CPT/HCPCS: 99281

== ENCOUNTER 2019-07-27 08:25 | Emergency (ER) | payer MEDICARE ==
[2019-07-27 08:36] VITALS: BP 125/72
--- NOTE | 2019-07-27 12:59 | XRay Report ---
Cervical spine-3 views Lumbar spine-4 views INDICATION: fall and back pain. COMPARISON: None. IMPRESSION: There is minimal dextroscoliosis centered at L3/4 with normal AP alignment. There is mi ld discogenic DJD in the mid cervical spine and mild lower lumbar facet arthropathy. No acute osseou s or soft tissue abnormality. Signer Name: Deandre Farmer MD Signed: 07/27/2019 12:55 PM Workstation Name: [id number]
--- NOTE | 2019-07-27 13:00 | XRay Report ---
Right hip-2 views INDICATION: fall and hip pain. COMPARISON: None. IMPRESSION: No acute osseous or soft tissue abnormality. 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 Signer Name: Deandre Farmer MD Signed: 07/27/2019 12:56 PM Workstation Name: [id number]
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
== END 2019-07-27 14:08 | disposition home or self-care (01) ==
LOC: ED 08:25
DX: M54.2 Cervicalgia (principal); M79.10 Myalgia, unspecified site; I10 Essential (primary) hypertension; J45.909 Unspecified asthma, uncomplicated; M19.90 Unspecified osteoarthritis, unspecified site; K21.9 Gastro-esophageal reflux disease without esophagitis; F20.9 Schizophrenia, unspecified; Z86.73 Personal history of transient ischemic attack (TIA), and cerebral infarction without residual deficits; Z98.51 Tubal ligation status; Z79.899 Other long term (current) drug therapy; W19.XXXA Unspecified fall, initial encounter; Y93.89 Activity, other specified; Y92.89 Other specified places as the place of occurrence of the external cause; Y99.8 Other external cause status
CPT/HCPCS: 72040; 72100; 99283

== ENCOUNTER 2020-01-22 17:25 | Inpatient (IN) | payer MEDICARE ==
--- NOTE | 2020-01-22 19:13 | Event Note ---
ED Screening Note ED Screening Note: generalized body aches that began 3-4 weeks ago states she has been taking tylenol with relief states she wants to see if she is diabetic +cough, non productive +SOB +generalized weakness +fatigue no fever no chills no CP +diarrhea no sick contacts no recent travel PMHx schizophrenia, HTN, asthma no HI, no SI allergy: none non smoker This initial assessment/diagnostic orders/clinical plan/treatment(s) is/are subject to change based on patients health status, clinical progression and re-assessment by fellow clinical providers in the ED. Further treatment and workup at subsequent clinical providers discretion. Patient/guardian urged not to elope from the ED as their condition may be serious if not clinically assessed and managed. Initial orders include: labs, CXR, EKG
[2020-01-22 19:30] LABS: Basophils # (Auto) 0.1 K/mm3 (0.0-0.1); Basophils % (Auto) 0.7 % (0.0-1.8); Eosinophils # (Auto) 0.5 K/mm3 (0.0-0.4); Eosinophils % (Auto) 5.7 % (0.0-4.3); Hematocrit 30.4 % (30.3-42.9); Hemoglobin 10.2 gm/dl (10.1-14.3); Lymphocytes # (Auto) 2.7 K/mm3 (1.2-5.4); Mean Corpuscular HGB Conc 34 % (30-34); Mean Corpuscular Volume 92 fl (79-97); Monocytes # (Auto) 0.7 K/mm3 (0.0-0.8); Monocytes % (Auto) 8.2 % (0.0-7.3); Platelet Count 268 K/mm3 (140-440); Red Blood Count 3.29 M/mm3 (3.65-5.03); Red Cell Distribution Width 12.7 % (13.2-15.2)
[2020-01-22 19:50] LABS: Alanine Aminotransferase 12 units/L (7-56); Albumin 3.5 g/dL (3.9-5); Blood Urea Nitrogen 7 mg/dL (7-17); Calcium 9.1 mg/dL (8.4-10.2); Hemolysis Index 23
[2020-01-22 19:52] LABS: BUN/Creatinine Ratio 14
--- NOTE | 2020-01-22 20:17 | XRay Report ---
CHEST PA AND LATERAL VIEWS INDICATION: cough. COMPARISON: None. FINDINGS: Support devices: None. Heart: Within normal limits. Lungs/Pleura: No acute pulmonary or pleural findings. There is mild elevation of the left hemidiaphragm. IMPRESSION: 1. No acute findings. Signer Name: Dejon Hdez MD Signed: 01/22/2020 8:12 PM Workstation Name: [id number]
--- NOTE | 2020-01-22 20:48 | Emergency Department Report ---
ED General Adult HPI - General Chief complaint: Weakness Stated complaint: BODY ACHES/COUGHING PUI?: No Time Seen by Provider: 01/22/20 19:11 Source: patient Mode of arrival: Ambulatory Limitations: No Limitations - History of Present Illness Initial comments: Patient is a 74-year-old female that presents emergency room with complaints of generalized weakness, generalized body aches, cough, shortness of breath, fatigue and diarrhea. Patient states her symptoms been going on for the 2 to 3 weeks. Patient states her symptoms are worsening. Patient states her symptoms are better when she takes Tylenol. Patient states that her shortness of breath is better with rest and worse with exertion. Patient states her body aches are better with Tylenol and rest. Patient states her body aches are worse with exertion and movement. Patient denies chest pain. Patient denies abdominal pain. Patient denies loss of consciousness. Patient denies syncope. She denies blurry vision. Patient denies fever and chills. Patient denies recent travel. Patient denies recent international travel. Patient denies exposure to the novel coronavirus. Patient denies sick contacts. Patient denies coming in contact with anybody with symptoms of the novel coronavirus. -: Sudden Consistency: constant Improves with: rest Worsens with: movement Associated Symptoms: cough, malaise, shortness of breath, weakness Treatments Prior to Arrival: none - Related Data Home Medications Medication Instructions Recorded Confirmed Last Taken Ziprasidone [Geodon] 20 mg PO DAILY 09/26/14 07/03/19 10/28/15 Benztropine [Cogentin] 1 tab PO BID 11/01/15 07/03/19 10/28/15 FLUoxetine HCL [PROzac] 40 mg PO QDAY 10/06/18 10/06/18 Unknown Ferrous Sulfate [Ferrous Sulfate 324 mg PO DAILY 10/06/18 07/03/19 Unknown 324 MG] amLODIPine 5 mg PO DAILY 10/06/18 07/03/19 Unknown Previous Rx's Medication Instructions Recorded Last Taken Type Pantoprazole [Protonix] 40 mg PO QDAY #30 tablet 07/04/19 Unknown Rx Allergies Allergy/AdvReac Type Severity Reaction Status Date / Time No Known Allergies Allergy Verified 01/22/20 18:40 ED Review of Systems ROS: Stated complaint: BODY ACHES/COUGHING Other details as noted in HPI Constitutional: malaise. denies: chills, fever Eyes: denies: eye pain, eye discharge, vision change ENT: denies: ear pain, throat pain Respiratory: cough, shortness of breath. denies: wheezing Cardiovascular: denies: chest pain, palpitations Endocrine: no symptoms reported Gastrointestinal: denies: abdominal pain, nausea, diarrhea Genitourinary: denies: urgency, dysuria, discharge Musculoskeletal: denies: back pain, joint swelling, arthralgia Skin: denies: rash, lesions Neurological: weakness. denies: headache, paresthesias Psychiatric: denies: anxiety, depression Hematological/Lymphatic: denies: easy bleeding, easy bruising ED Past Medical Hx - Past Medical History Previous Medical History?: Yes Hx Hypertension: Yes Hx CVA: Yes Hx Heart Attack/AMI: No Hx GERD: Yes Hx Liver Disease: No Hx Renal Disease: No Hx Sickle Cell Disease: No Hx Arthritis: Yes Hx Seizures: No Hx Psychiatric Treatment: Yes (schizophrenia) Hx Asthma: Yes Hx COPD: No Hx HIV: No Additional medical history: Heart racing, burned with hot oil ij feb 2019 - Surgical History Past Surgical History?: Yes Hx Pacemaker: No Hx Internal Defibrillator: No Additional Surgical History: hemmorhoidectomy. tubal ligation. cardiac ablasion, skin gradr - Family History Family history: no significant - Social History Smoking Status: Never Smoker Substance Use Type: None - Medications Home Medications: Home Medications Medication Instructions Recorded Confirmed Last Taken Type Ziprasidone [Geodon] 20 mg PO DAILY 09/26/14 07/03/19 10/28/15 History Benztropine [Cogentin] 1 tab PO BID 11/01/15 07/03/19 10/28/15 History FLUoxetine HCL [PROzac] 40 mg PO QDAY 10/06/18 10/06/18 Unknown History Ferrous Sulfate [Ferrous Sulfate 324 mg PO DAILY 10/06/18 07/03/19 Unknown History 324 MG] amLODIPine 5 mg PO DAILY 10/06/18 07/03/19 Unknown History Pantoprazole [Protonix] 40 mg PO QDAY #30 tablet 07/04/19 Unknown Rx ED Physical Exam - General Limitations: No Limitations General appearance: alert, in no apparent distress - Head Head exam: Present: atraumatic, normocephalic - Eye Eye exam: Present: normal appearance - ENT ENT exam: Present: mucous membranes dry - Neck Neck exam: Present: normal inspection - Respiratory Respiratory exam: Present: decreased breath sounds - Cardiovascular Cardiovascular Exam: Present: regular rate, normal rhythm. Absent: systolic murmur, diastolic murmur, rubs, gallop - GI/Abdominal GI/Abdominal exam: Present: soft, normal bowel sounds - Extremities Exam Extremities exam: Present: normal inspection - Back Exam Back exam: Present: normal inspection - Neurological Exam Neurological exam: Present: alert, oriented X3 - Psychiatric Psychiatric exam: Present: normal affect, normal mood - Skin Skin exam: Present: warm, dry, intact, normal color. Absent: rash ED Course Vital Signs 01/22/20 01/22/20 01/22/20 18:46 22:40 22:46 Temperature 98.4 F Pulse Rate 58 L 53 L 47 L Respiratory 17 12 14 Rate Blood Pressure 129/62 141/70 O2 Sat by Pulse 100 98 98 Oximetry 01/22/20 01/22/20 01/22/20 23:00 23:16 23:30 Temperature Pulse Rate 51 L 53 L 56 L Respiratory 13 15 17 Rate Blood Pressure 141/70 155/74 155/74 O2 Sat by Pulse 99 98 98 Oximetry 01/22/20 01/22/20 01/23/20 23:46 23:50 00:00 Temperature Pulse Rate 55 L 51 L 49 L Respiratory 12 13 14 Rate Blood Pressure 155/74 155/74 168/81 O2 Sat by Pulse 97 98 99 Oximetry 01/23/20 01/23/20 01/23/20 00:16 00:30 00:46 Temperature Pulse Rate 49 L 52 L Respiratory 13 12 13 Rate Blood Pressure 168/81 168/81 168/81 O2 Sat by Pulse 99 98 98 Oximetry 01/23/20 01/23/20 01/23/20 01:00 01:22 01:31 Temperature Pulse Rate 164 H Respiratory 15 15 Rate Blood Pressure 168/81 136/70 O2 Sat by Pulse 97 98 Oximetry 01/23/20 01/23/20 01/23/20 01:45 02:01 02:15 Temperature Pulse Rate 48 L 47 L 49 L Respiratory 19 12 12 Rate Blood Pressure 136/70 154/79 154/79 O2 Sat by Pulse 99 98 84 Oximetry 01/23/20 01/23/20 02:31 02:45 Temperature Pulse Rate 50 L 48 L Respiratory 12 14 Rate Blood Pressure 154/79 154/79 O2 Sat by Pulse 98 97 Oximetry - Reevaluation(s) Reevaluation #1: I discussed all results with patient. I discussed plan of care with patient. Patient agrees with plan of care and admission. Patient to be admitted to the hospitalist service. 01/23/20 02:04 - Consultations Consultation #1: Hospitalist consulted for admission. Hospitalist to admit patient. 01/23/20 02:04 ED Medical Decision Making - Lab Data Result diagrams: 01/22/20 19:15 01/22/20 19:15 - EKG Data -: EKG Interpreted by Me EKG shows normal: sinus rhythm, axis, intervals, QRS complexes, ST-T waves Rate: bradycardia - Radiology Data Radiology results: report reviewed, image reviewed CHEST PA AND LATERAL VIEWS INDICATION: cough. COMPARISON: None. FINDINGS: Support devices: None. Heart: Within normal limits. Lungs/Pleura: No acute pulmonary or pleural findings. There is mild elevation of the left hemidiaphragm. IMPRESSION: 1. No acute findings. CT head/brain wo con INDICATION / CLINICAL INFORMATION: 74 years Female; Weakness. TECHNIQUE: Routine CT head without contrast. All CT scans at this location are performed using CT dose reduction for ALARA by means of automated exposure control. COMPARISON: 01/15/2014 FINDINGS: BRAIN / INTRACRANIAL CONTENTS: Small focus of encephalomalacia seen in the superior frontal gyral region anteriorly, which may related to prior trauma or branch DEL infarct. This finding is near what appears to be a juanita hole - prior ventricular catheter may be used. Please quickly correlate. Similar findings seen on prior. More prominent encephalomalacia is seen anteriorly and inferiorly in the right frontal lobe. Would question prior trauma. Similar findings seen on prior. Otherwise, no acute hemorrhage, mass effect, midline shift, hydrocephalus, or acute, large territorial infarct. No signs of significant atrophy. Minimal, nonspecific white matter disease otherwise noted. CRANIOCERVICAL JUNCTION: No significant abnormality. ORBITS: No significant abnormality of visualized orbits. SINUSES / MASTOIDS: No significant abnormality in the visualized paranasal sinuses or mastoid air cells. ADDITIONAL FINDINGS: Bilateral, fairly significant temporomandibular joint disease noted. IMPRESSION: 1. No focal mass, hemorrhage, hydrocephalus, or acute, large territorial infarct. CTA CHEST WITH IV CONTRAST INDICATION / CLINICAL INFORMATION: P.E. PROTOCOL Shortness of breath, elevated D-dimer. TECHNIQUE: Axial CT images were obtained through the chest after injection of 100 mL Omnipaque 350 IV contrast. 3 plane MIP and/or 3D reconstructions were produced. All CT scans at this location are performed using CT dose reduction for ALARA by means of automated exposure control. COMPARISON: Chest radiograph one day prior and CT chest 12/04/2012 FINDINGS: PULMONARY ARTERIES: No pulmonary emboli. THORACIC AORTA: No significant abnormality. HEART: Borderline heart size. CORONARY ARTERIES: No significant calcification. PLEURA: No pleural effusion. No pneumothorax. LYMPH NODES: No significant adenopathy. LUNGS: There is mild patchy groundglass opacity and interlobular septal thickening, suggesting mild pulmonary edema. There is a 1.3 cm pulmonary nodule in the right apex (series 4, image 12). There appears to be adjacent right apical scarring. ADDITIONAL FINDINGS: None. UPPER ABDOMEN: No acute findings. Cholelithiasis. SKELETAL STRUCTURES: No significant osseous abnormality. IMPRESSION: 1. No CT evidence for pulmonary embolism. 2. Borderline heart size. Mild patchy groundglass and interlobular septal thickening, suggesting mild pulmonary edema. 3. A 1.3 cm pulmonary nodule in the right apex is indeterminate. Recommend PET/CT or tissue sampling for further evaluation. 4. Cholelithiasis. - Medical Decision Making Patient is a 74-year-old female that presents emergency room with complaints of shortness of breath, weakness, generalized body aches. Patient had labs done which were essentially unremarkable except for an elevated D-dimer. Patient had a chest x-ray which was negative. Patient had a head CT for the weakness and it was negative for acute findings. Patient had a CTA of the chest due to elevated D-dimer and shortness of breath. Patient CT of the chest shows pulmonary edema. Patient given IV Lasix. Patient admitted to the hospital service for further evaluation treatment. - Differential Diagnosis PE, SOB, cough, pneumonia, weakness, Critical Care Time: Yes Critical care time in (mins) excluding proc time.: 35 Critical care attestation.: If time is entered above; I have spent that time in minutes in the direct care of this critically ill patient, excluding procedure time. Critical Care Time: 35 minutes ED Disposition Clinical Impression: SOB (shortness of breath), Cough, Weakness, Generalized body aches Pulmonary edema Qualifiers: Chronicity: acute Qualified Code(s): J81.0 - Acute pulmonary edema Disposition: 09 OP ADMIT IP TO THIS HOSP Is pt being admited?: Yes Does the pt Need Aspirin: No Condition: Critical Time of Disposition: 02:05
[2020-01-22] MEDS ORDERED: SODIUM CHLORIDE 0.9% 1000 ML 1,000 ML IV ONE (20:51)
--- NOTE | 2020-01-22 21:54 | Cat Scan Report ---
CT head/brain wo con INDICATION / CLINICAL INFORMATION: 74 years Female; Weakness. TECHNIQUE: Routine CT head without contrast. All CT scans at this location are performed using CT dos e reduction for ALARA by means of automated exposure control. COMPARISON: 01/15/2014 FINDINGS: BRAIN / INTRACRANIAL CONTENTS: Small focus of encephalomalacia seen in the superior frontal gyral reg ion anteriorly, which may related to prior trauma or branch DEL infarct. This finding is near what ap pears to be a juanita hole - prior ventricular catheter may be used. Please quickly correlate. Similar f indings seen on prior. More prominent encephalomalacia is seen anteriorly and inferiorly in the right frontal lobe. Would qu estion prior trauma. Similar findings seen on prior. Otherwise, no acute hemorrhage, mass effect, midline shift, hydrocephalus, or acute, large territori al infarct. No signs of significant atrophy. Minimal, nonspecific white matter disease otherwise note d. CRANIOCERVICAL JUNCTION: No significant abnormality. ORBITS: No significant abnormality of visualized orbits. SINUSES / MASTOIDS: No significant abnormality in the visualized paranasal sinuses or mastoid air lorene ls. ADDITIONAL FINDINGS: Bilateral, fairly significant temporomandibular joint disease noted. IMPRESSION: 1. No focal mass, hemorrhage, hydrocephalus, or acute, large territorial infarct. Signer Name: Davion Segundo MD, III Signed: 01/22/2020 9:50 PM Workstation Name: [email or web address]
[2020-01-23 01:16] LABS: Bilirubin,Urine NEG (Negative); Blood,Urine SM (Negative); Color,Urine Yellow (Yellow); Protein,Urine <15 mg/dL mg/dL (Negative); Urobilinogen,Urine < 2.0 mg/dL (<2.0)
--- NOTE | 2020-01-23 01:47 | Cat Scan Report ---
CTA CHEST WITH IV CONTRAST INDICATION / CLINICAL INFORMATION: P.E. PROTOCOL Shortness of breath, elevated D-dimer. TECHNIQUE: Axial CT images were obtained through the chest after injection of 100 mL Omnipaque 350 IV contrast. 3 plane MIP and/or 3D reconstructions were produced. All CT scans at this location are performed usin g CT dose reduction for DOMINIC by means of automated exposure control. COMPARISON: Chest radiograph one day prior and CT chest 12/04/2012 FINDINGS: PULMONARY ARTERIES: No pulmonary emboli. THORACIC AORTA: No significant abnormality. HEART: Borderline heart size. CORONARY ARTERIES: No significant calcification. PLEURA: No pleural effusion. No pneumothorax. LYMPH NODES: No significant adenopathy. LUNGS: There is mild patchy groundglass opacity and interlobular septal thickening, suggesting mild p ulmonary edema. There is a 1.3 cm pulmonary nodule in the right apex (series 4, image 12). There appe ars to be adjacent right apical scarring. ADDITIONAL FINDINGS: None. UPPER ABDOMEN: No acute findings. Cholelithiasis. SKELETAL STRUCTURES: No significant osseous abnormality. IMPRESSION: 1. No CT evidence for pulmonary embolism. 2. Borderline heart size. Mild patchy groundglass and interlobular septal thickening, suggesting mild pulmonary edema. 3. A 1.3 cm pulmonary nodule in the right apex is indeterminate. Recommend PET/CT or tissue sampling for further evaluation. 4. Cholelithiasis. INCIDENTAL PULMONARY NODULE RECOMMENDATION RECOMMENDATION: Solid Nodule size >8 mm -- Single - Low Risk or High Risk Patient: Consider CT at 3 months, PET/CT, or tissue sampling Note These recommendations do not apply to lung cancer screening, patients with immunosuppression, o r patients with known primary cancer. Note Newly detected indeterminate nodule in persons 35 years of age or older. Persons under the age of 35 should not receive follow-up unless there is a known primary cancer. Note A Perifissural Nodule is a fissure-attached/subpleural, homogeneous, solid nodule that had smoo th margins and an oval, lentiform, or triangular shape. They represent about 20% of nodules detected in lung cancer screening, are invariably benign, and do not require follow-up. Nodules 10 mm or large r (or those with suspicious features) will continue to be managed based on the size criteria. Low Risk Patient -- minimal or absent history of smoking and of other known risk factors. High Risk Patient -- history of smoking or of other known risk factors. Nodule dimensions are average of long and short axes, rounded to the nearest millimeter. Based on 2017 Fleischner Society Guidelines found in Radiology 2017 284:228-243. https://doi.org/10.1148/radiol.4453274172 https://www.ncbi.nlm.nih.gov/pmc/articles/MHZ3627404/ Signer Name: Fariha Phillips MD Signed: 01/23/2020 1:42 AM Workstation Name: [id number]
[2020-01-23] MEDS ORDERED: FUROSEMIDE 40 MG/4 ML INJ IV ONE (02:08)
[2020-01-23] MEDS ORDERED: MAGNESIUM HYDROXIDE (MOM) ORAL LIQD UDC PO PRN (03:45)
[2020-01-23] MEDS ORDERED: MORPHINE 2 MG/1 ML INJ IV PRN (03:45)
[2020-01-23] MEDS ORDERED: ACETAMINOPHEN 325 MG TAB PO PRN (03:45)
[2020-01-23] MEDS ORDERED: ONDANSETRON 4 MG/2 ML INJ IV PRN (03:45)
[2020-01-23] MEDS: HEPARIN 5,000 UNIT/1 ML VIAL SUB-Q SCH ×3 (06:08→21:24)
--- NOTE | 2020-01-23 06:32 | History and Physical Report ---
History of Present Illness Date of examination: 01/23/20 Date of admission: 01/23/20 02:07 Chief complaint: Generalized weakness Shortness of breath History of present illness: 74-year-old -[place] female with known history of hypertension presenting to the emergency room today with complaining of generalized body aches and weakness. She has also been having some mild cough which is nonproductive and some shortness of breath. Symptoms have been ongoing for the past 2 to 3 weeks. However symptoms got worse over the past few days and decided to report to the emergency room. Shortness of breath is worse on exertion and gets better upon resting. She denies any fever or chills, no nausea vomiting, no abdominal pain. She denies any hematuria or dysuria, she denies any chest pain, denies any syncopal episodes. Patient denies any sick contacts and no recent travel, denies any contact with anyone with COVID-19. Work-up in the emergency room today significant findings were that of pulmonary edema on the CT angiogram of the chest. All other work-up were unremarkable. Patient being admitted for CHF-new onset. Past History Past Medical History: GERD, hypertension, other (Asthma, schizophrenia) Past Surgical History: Other (Cardiac ablation, tubal ligation, hemorrhoidectomy, skin graft) Social history: no significant social history Family history: no significant family history Medications and Allergies Allergies Allergy/AdvReac Type Severity Reaction Status Date / Time No Known Allergies Allergy Verified 01/22/20 18:40 Home Medications Medication Instructions Recorded Confirmed Last Taken Type Ziprasidone [Geodon] 20 mg PO DAILY 09/26/14 01/23/20 10/28/15 History Benztropine [Cogentin] 1 tab PO BID 11/01/15 01/23/20 10/28/15 History FLUoxetine HCL [PROzac] 40 mg PO QDAY 10/06/18 01/23/20 Unknown History Ferrous Sulfate [Ferrous Sulfate 324 mg PO DAILY 10/06/18 01/23/20 Unknown History 324 MG] amLODIPine 5 mg PO DAILY 10/06/18 01/23/20 Unknown History Pantoprazole [Protonix] 40 mg PO QDAY #30 tablet 07/04/19 01/23/20 Unknown Rx Active Meds: Active Medications Acetaminophen (Acetaminophen 325 Mg Tab) 650 mg PO Q4H PRN PRN Reason: Pain MILD(1-3)/Fever >100.5/[place] Furosemide (Furosemide 40 Mg/4 Ml Inj) 40 mg IV BID@0600,1800 [facility] Heparin Sodium (Porcine) (Heparin 5,000 Unit/1 Ml Vial) 5,000 unit SUB-Q Q8HR [facility] Last Admin: 01/23/20 06:08 Dose: 5,000 unit Documented by: Magnesium Hydroxide (Magnesium Hydroxide (Mom) Oral Liqd Udc) 30 ml PO Q4H PRN PRN Reason: Constipation Morphine Sulfate (Morphine 2 Mg/1 Ml Inj) 2 mg IV Q4H PRN PRN Reason: Pain, Moderate (4-6) Ondansetron HCl (Ondansetron 4 Mg/2 Ml Inj) 4 mg IV Q8H PRN PRN Reason: Nausea And Vomiting Sodium Chloride (Sodium Chloride 0.9% 10 Ml Flush Syringe) 10 ml IV BID [facility] Sodium Chloride (Sodium Chloride 0.9% 10 Ml Flush Syringe) 10 ml IV PRN PRN PRN Reason: LINE FLUSH Review of Systems Constitutional: weakness, no fever, no chills Ears, nose, mouth and throat: no nasal congestion, no sore throat Cardiovascular: no chest pain, no palpitations Respiratory: cough, shortness of breath Gastrointestinal: no abdominal pain, no nausea, no vomiting, no diarrhea Genitourinary Female: no dysuria, no urgency, no hematuria Musculoskeletal: no neck pain, no low back pain Integumentary: no rash, no pruritis Neurological: no headaches, no confusion Psychiatric: no anxiety, no depression Exam - Constitutional Vitals: Temp Pulse Resp BP Pulse Ox 98.2 F 48 L 12 114/61 98 01/23/20 04:18 01/23/20 04:18 01/23/20 04:18 01/23/20 04:18 01/23/20 04:18 General appearance: Present: no acute distress, well-nourished - EENT Eyes: Present: PERRL, EOM intact. Absent: scleral icterus ENT: hearing intact, clear oral mucosa, dentition normal - Neck Neck: Present: supple, normal ROM - Respiratory Respiratory: bilateral: rales (Few rales in the bases) - Cardiovascular Rhythm: regular Heart Sounds: Present: S1 & S2. Absent: gallop, systolic murmur, diastolic murmur, rub - Extremities Extremities: no ischemia, pulses intact, pulses symmetrical, No edema, Full ROM Peripheral Pulses: within normal limits - Abdominal General gastrointestinal: Present: soft, non-tender, non-distended, normal bowel sounds. Absent: mass - Integumentary Integumentary: Present: clear, warm, dry - Musculoskeletal Musculoskeletal: strength equal bilaterally - Psychiatric Psychiatric: appropriate mood/affect, intact judgment & insight, memory intact, cooperative - Neurologic Neurologic: CNII-XII intact, no focal deficits, moves all extremities HEART Score - HEART Score Troponin: Troponin T < 0.010 ng/mL (0.00-0.029) 01/22/20 19:15 Results - Labs CBC & Chem 7: 01/22/20 19:15 01/22/20 19:15 Labs: Abnormal lab results 01/22/20 01/22/20 01/22/20 Range/Units 19:15 19:15 19:15 RBC 3.29 L (3.65-5.03) M/mm3 RDW 12.7 L (13.2-15.2) % Yancey % (Auto) 8.2 H (0.0-7.3) % Eos % (Auto) 5.7 H (0.0-4.3) % Eos # (Auto) 0.5 H (0.0-0.4) K/mm3 D-Dimer (0-234) ng/mlDDU Creatinine 0.5 L (0.6-1.2) mg/dL Magnesium 1.60 L (1.7-2.3) mg/dL Total Creatine Kinase 155 H (30-135) units/L Albumin 3.5 L (3.9-5) g/dL 01/22/20 Range/Units 23:23 RBC (3.65-5.03) M/mm3 RDW (13.2-15.2) % Yancey % (Auto) (0.0-7.3) % Eos % (Auto) (0.0-4.3) % Eos # (Auto) (0.0-0.4) K/mm3 D-Dimer 291.13 H (0-234) ng/mlDDU Creatinine (0.6-1.2) mg/dL Magnesium (1.7-2.3) mg/dL Total Creatine Kinase (30-135) units/L Albumin (3.9-5) g/dL Assessment and Plan - Patient Problems (1) Pulmonary edema Current Visit: Yes Status: Acute Qualifiers: Chronicity: acute Qualified Code(s): J81.0 - Acute pulmonary edema Plan to address problem: Patient placed on diuretics. Will monitor inputs and output and also monitor daily weight. Patient be scheduled for echocardiogram. We will place a consult to cardiology for evaluation. (2) Schizophrenia Current Visit: No Status: Acute Plan to address problem: We will resume routine home medications once reconciled. (3) Hypertension Current Visit: Yes Status: Acute Plan to address problem: We will resume routine home medications once reconciled and monitor vital signs closely. (4) DVT prophylaxis Current Visit: No Status: Acute Plan to address problem: Patient placed on subcutaneous heparin. (5) Full code status Current Visit: Yes Status: Acute
[2020-01-23] MEDS ORDERED: PANTOPRAZOLE 40 MG TAB PO SCH (10:00)
[2020-01-23] MEDS: amLODIPine 5 MG TAB PO SCH ×2 (10:03→15:16)
[2020-01-23] MEDS: FERROUS SULFATE 325 MG TAB PO SCH ×2 (10:03→15:16)
[2020-01-23] MEDS: BENZTROPINE 2 MG TAB PO SCH ×2 (10:03→15:16)
[2020-01-23] MEDS: FLUoxetine 20 MG CAP PO SCH ×2 (10:04→15:17)
[2020-01-23] MEDS: ZIPRASIDONE 20 MG CAP PO SCH ×2 (10:04→15:17)
--- NOTE | 2020-01-23 10:44 | Consultation ---
History of Present Illness Consult date: 01/23/20 Requesting physician: RON MONTES Consult reason: congestive heart failure History of present illness: Patient is a 74-year-old female with a past medical history of SVT s/p AVNRT ablation, CVA, HTN, asthma, schizophrenia. She has been followed in our office in the past by Dr. Miner (last seen 08/2016). She presented with c/o generalized weakness, generalized body aches, cough, shortness of breath, fatigue and diarrhea for 2 to 3 weeks prior to arrival. Patient states her symptoms are worsening. Patient states her symptoms are better when she takes Tylenol. Patient states that her shortness of breath is better with rest and worse with exertion. Patient denies chest pain, palpitations, n/v, dizziness or syncope. She denies any known exposure to COVID-19. tte done 07/2014 showed EF 55-60%, mild TR. Lexiscan MPI stress test done 07/2014 was negative. Past History Past Medical History: GERD, hypertension, other (Asthma, schizophrenia) Past Surgical History: Other (Cardiac ablation, tubal ligation, hemorrhoidectomy, skin graft) Social history: no significant social history Family history: no significant family history Medications and Allergies Allergies Allergy/AdvReac Type Severity Reaction Status Date / Time No Known Allergies Allergy Verified 01/22/20 18:40 Home Medications Medication Instructions Recorded Confirmed Last Taken Type Ziprasidone [Geodon] 20 mg PO DAILY 09/26/14 01/23/20 10/28/15 History Benztropine [Cogentin] 1 tab PO BID 11/01/15 01/23/20 10/28/15 History FLUoxetine HCL [PROzac] 40 mg PO QDAY 10/06/18 01/23/20 Unknown History Ferrous Sulfate [Ferrous Sulfate 324 mg PO DAILY 10/06/18 01/23/20 Unknown History 324 MG] amLODIPine 5 mg PO DAILY 10/06/18 01/23/20 Unknown History Pantoprazole [Protonix] 40 mg PO QDAY #30 tablet 07/04/19 01/23/20 Unknown Rx Active Meds: Active Medications Acetaminophen (Acetaminophen 325 Mg Tab) 650 mg PO Q4H PRN PRN Reason: Pain MILD(1-3)/Fever >100.5/[place] Amlodipine Besylate (Amlodipine 5 Mg Tab) 5 mg PO DAILY [facility] Benztropine Mesylate (Benztropine 2 Mg Tab) 2 mg PO BID [facility] Ferrous Sulfate (Ferrous Sulfate 325 Mg Tab) 325 mg PO DAILY [facility] Fluoxetine HCl (Fluoxetine 20 Mg Cap) 40 mg PO QDAY [facility] Furosemide (Furosemide 40 Mg/4 Ml Inj) 40 mg IV BID@0600,1800 [facility] Heparin Sodium (Porcine) (Heparin 5,000 Unit/1 Ml Vial) 5,000 unit SUB-Q Q8HR [facility] Last Admin: 01/23/20 06:08 Dose: 5,000 unit Documented by: Magnesium Hydroxide (Magnesium Hydroxide (Mom) Oral Liqd Udc) 30 ml PO Q4H PRN PRN Reason: Constipation Morphine Sulfate (Morphine 2 Mg/1 Ml Inj) 2 mg IV Q4H PRN PRN Reason: Pain, Moderate (4-6) Ondansetron HCl (Ondansetron 4 Mg/2 Ml Inj) 4 mg IV Q8H PRN PRN Reason: Nausea And Vomiting Pantoprazole Sodium (Pantoprazole 40 Mg Tab) 40 mg PO QDAY [facility] Sodium Chloride (Sodium Chloride 0.9% 10 Ml Flush Syringe) 10 ml IV BID [facility] Sodium Chloride (Sodium Chloride 0.9% 10 Ml Flush Syringe) 10 ml IV PRN PRN PRN Reason: LINE FLUSH Ziprasidone (Ziprasidone 20 Mg Cap) 20 mg PO DAILY [facility] Review of Systems Constitutional: fever, chills, weakness, malaise, no weight loss, no weight gain Ears, nose, mouth and throat: no ear pain, no nose pain, no sinus pressure, no sinus pain Cardiovascular: shortness of breath, no chest pain, no orthopnea, no palpitations, no rapid/irregular heart beat, no edema, no syncope, no lightheadedness Respiratory: cough, shortness of breath, dyspnea on exertion, no congestion, no wheezing, no pain on inspiration Gastrointestinal: diarrhea, no abdominal pain, no nausea, no vomiting, no constipation Genitourinary Female: no pelvic pain, no flank pain, no dysuria, no urinary frequency, no urgency Musculoskeletal: no neck stiffness, no neck pain, no shooting arm pain, no arm numbness/tingling, no low back pain, no shooting leg pain Integumentary: no rash, no pruritis, no redness, no sores, no wounds Neurological: no head injury, no paralysis, no weakness, no parathesias, no numbness, no tingling, no seizures, no syncope Psychiatric: no anxiety Endocrine: no cold intolerance, no heat intolerance Hematologic/Lymphatic: no easy bruising, no easy bleeding Allergic/Immunologic: no urticaria Physical Examination Vital Signs Temp Pulse Resp BP Pulse Ox 98.4 F 58 L 17 129/62 100 01/22/20 18:46 01/22/20 18:46 01/22/20 18:46 01/22/20 18:46 01/22/20 18:46 General appearance: no acute distress HEENT: Positive: PERRL, Normocephaly, Mucus Membranes Moist Neck: Positive: neck supple, trachea midline Cardiac: Positive: Reg Rate and Rhythm, S1/S2 Lungs: Positive: Decreased Breath Sounds Neuro: Positive: Grossly Intact Abdomen: Negative: Tender Skin: Negative: Rash Musculoskeletal: No Pain Extremities: Absent: edema Results 01/22/20 19:15 01/22/20 19:15 Cardiac Enzymes 01/22/20 Range/Units 19:15 AST 23 (5-40) units/L CBC 01/22/20 Range/Units 19:15 WBC 8.4 (4.5-11.0) K/mm3 RBC 3.29 L (3.65-5.03) M/mm3 Hgb 10.2 (10.1-14.3) gm/dl Hct 30.4 (30.3-42.9) % Plt Count 268 (140-440) K/mm3 Lymph # (Auto) 2.7 (1.2-5.4) K/mm3 [place] # (Auto) 0.7 (0.0-0.8) K/mm3 Eos # (Auto) 0.5 H (0.0-0.4) K/mm3 Baso # (Auto) 0.1 (0.0-0.1) K/mm3 Comprehensive Metabolic Panel 01/22/20 Range/Units 19:15 Sodium 141 (137-145) mmol/L Potassium 3.8 (3.6-5.0) mmol/L Chloride 106.2 (98-107) mmol/L Carbon Dioxide 29 (22-30) mmol/L BUN 7 (7-17) mg/dL Creatinine 0.5 L (0.6-1.2) mg/dL Glucose 80 (65-100) mg/dL Calcium 9.1 (8.4-10.2) mg/dL AST 23 (5-40) units/L ALT 12 (7-56) units/L Alkaline Phosphatase 61 (35-129) units/L Total Protein 7.0 (6.3-8.2) g/dL Albumin 3.5 L (3.9-5) g/dL - Imaging and Cardiology Echo: report reviewed (07/2014 showed EF 55-60%, mild TR. ) EKG: report reviewed, image reviewed EKG interpretations - Telemetry EKG Rhythm: Sinus Bradycardia - EKG Sinus rhythms and dysrhythmias: sinus bradycardia Assessment and Plan Cardiology has been consulted for HF. There is no apparent clinical evidence of acute HF. Chest CTA with mild patchy GGO and pulmonary nodule. Given pt's clinical presentation, recommend r/o COVID-19 per primary. Await echo. Agree with present cardiac regimen. Will follow. The patient has been seen in conjunction with Dr. Prescott who agrees with the assessment and plan of care. - Patient Problems (1) Generalized body aches Current Visit: Yes Status: Acute (2) Weakness Current Visit: Yes Status: Acute (3) Cough Current Visit: Yes Status: Acute (4) Diarrhea Current Visit: Yes Status: Acute (5) History of cardiac radiofrequency ablation Current Visit: Yes Status: Chronic (6) Hypertension Current Visit: Yes Status: Acute (7) History of CVA (cerebrovascular accident) Current Visit: Yes Status: Chronic (8) Asthma Current Visit: Yes Status: Chronic (9) Schizophrenia Current Visit: Yes Status: Chronic
[2020-01-23] MEDS ORDERED: MAGNESIUM SULFATE 2 GM/50 ML BAG IV ONE (12:00)
[2020-01-23] MEDS ORDERED: cefTRIAXone/NS 1 GM/50 ML 1 GM/50 ML BAG IV SCH (12:00)
[2020-01-23] MEDS: PANTOPRAZOLE 40 MG TAB PO SCH ×2 (12:04→15:16)
[2020-01-23] MEDS ORDERED: D5W/0.9% NACL 1,000 ML IV SCH (15:00)
--- NOTE | 2020-01-23 15:06 | XRay Report ---
ABDOMEN 1 VIEW(S) INDICATION / CLINICAL INFORMATION: Abdominal pain. COMPARISON: None available. FINDINGS: TUBES / LINES: None. BOWEL GAS PATTERN: No significant abnormality. FREE AIR / EXTRALUMINAL GAS: None seen. ADDITIONAL FINDINGS: Contrast is noted within the urinary bladder. IMPRESSION: 1. No radiographic evidence of acute abdomen. Signer Name: Dejon Hdez MD Signed: 01/23/2020 3:01 PM Workstation Name: [id number]
[2020-01-23] MEDS: cefTRIAXone/NS 2 GM/100 ML 2 GM/100 ML BAG IV SCH (15:14)
--- NOTE | 2020-01-23 16:27 | Event Note ---
Date: 01/23/20 Patient seen and examined CXR no sign of CHF, 2d echo ordered will r/o for COVID 19 transfer to [facility] supportive care, and current mx
[2020-01-23 17:22] LABS: C-Reactive Protein 0.4 mg/dL (0.00-1.30)
[2020-01-23] MEDS ORDERED: FUROSEMIDE 40 MG/4 ML INJ IV SCH (18:00)
[2020-01-23] MEDS: INSULIN REGULAR, HUMAN 100 UNIT/ML 3ML VIAL SUB-Q SCH (23:24)
[2020-01-24] MEDS: BENZTROPINE 2 MG TAB PO SCH ×3 (00:10→23:28)
[2020-01-24 05:54] LABS: Basophils # (Auto) 0.1 K/mm3 (0.0-0.1); Basophils % (Auto) 0.9 % (0.0-1.8); Eosinophils # (Auto) 0.4 K/mm3 (0.0-0.4); Eosinophils % (Auto) 6.4 % (0.0-4.3); Hematocrit 32.4 % (30.3-42.9); Hemoglobin 10.7 gm/dl (10.1-14.3); Lymphocytes # (Auto) 1.8 K/mm3 (1.2-5.4); Lymphocytes % (Auto) 32.1 % (13.4-35.0); Mean Corpuscular HGB Conc 33 % (30-34); Mean Corpuscular Volume 92 fl (79-97); Monocytes # (Auto) 0.5 K/mm3 (0.0-0.8); Monocytes % (Auto) 8.8 % (0.0-7.3); Platelet Count 306 K/mm3 (140-440); Red Blood Count 3.51 M/mm3 (3.65-5.03); Red Cell Distribution Width 12.8 % (13.2-15.2)
[2020-01-24 05:58] LABS: Blood Urea Nitrogen 13 mg/dL (7-17); Hemolysis Index 4
[2020-01-24 06:03] LABS: INR 1.06 (0.87-1.13)
[2020-01-24 06:14] LABS: BUN/Creatinine Ratio 22
[2020-01-24] MEDS: HEPARIN 5,000 UNIT/1 ML VIAL SUB-Q SCH ×3 (06:50→23:27)
[2020-01-24] MEDS: PANTOPRAZOLE 40 MG TAB PO SCH (08:42)
[2020-01-24] MEDS: amLODIPine 5 MG TAB PO SCH (09:20)
[2020-01-24] MEDS: FERROUS SULFATE 325 MG TAB PO SCH (09:20)
[2020-01-24] MEDS: FLUoxetine 20 MG CAP PO SCH (09:20)
[2020-01-24] MEDS: INSULIN REGULAR, HUMAN 100 UNIT/ML 3ML VIAL SUB-Q SCH ×2 (09:22→14:25)
--- NOTE | 2020-01-24 10:43 | Progress Note ---
Assessment and Plan given constitutional sxs, covid is being ruled out tele unremarkable tte reviewed stable cv status - Patient Problems (1) Hypertension Current Visit: Yes Status: Acute (2) History of CVA (cerebrovascular accident) Current Visit: Yes Status: Chronic (3) History of cardiac radiofrequency ablation Current Visit: Yes Status: Chronic (4) GERD (gastroesophageal reflux disease) Current Visit: No Status: Acute Objective Vital Signs Temp Pulse Resp BP Pulse Ox 01/24/20 06:51 59 L 18 113/60 97 01/24/20 04:11 98.0 F 51 L 16 106/45 98 01/23/20 21:04 97.3 F L 54 L 16 104/62 98 01/23/20 20:28 97.5 F L 62 18 124/69 95 01/23/20 19:49 62 01/23/20 15:57 97.9 F 62 18 110/59 98 01/23/20 15:31 98 01/23/20 11:31 49 L 01/23/20 11:14 98.0 F 49 L 18 126/56 97 - Physical Examination HEENT: Positive: PERRL, Normocephaly, Mucus Membranes Moist Neck: Positive: neck supple, trachea midline Neuro: Positive: Grossly Intact Abdomen: Negative: Tender Skin: Negative: Rash Musculoskeletal: No Pain Extremities: Absent: edema - Labs and Meds Cardiac Enzymes 01/23/20 Range/Units 15:58 Lactate Dehydrogenase 275 H (91-180) units/L Coagulation 01/24/20 Range/Units 04:33 PT 13.6 (12.2-14.9) Sec. INR 1.06 (0.87-1.13) CBC 01/24/20 Range/Units 04:33 WBC 5.8 (4.5-11.0) K/mm3 RBC 3.51 L (3.65-5.03) M/mm3 Hgb 10.7 (10.1-14.3) gm/dl Hct 32.4 (30.3-42.9) % Plt Count 306 (140-440) K/mm3 Lymph # (Auto) 1.8 (1.2-5.4) K/mm3 [place] # (Auto) 0.5 (0.0-0.8) K/mm3 Eos # (Auto) 0.4 (0.0-0.4) K/mm3 Baso # (Auto) 0.1 (0.0-0.1) K/mm3 Comprehensive Metabolic Panel 01/24/20 Range/Units 04:33 Sodium 141 (137-145) mmol/L Potassium 3.7 (3.6-5.0) mmol/L Chloride 102.1 (98-107) mmol/L Carbon Dioxide 31 H (22-30) mmol/L BUN 13 (7-17) mg/dL Creatinine 0.6 (0.6-1.2) mg/dL Glucose 93 (65-100) mg/dL Calcium 9.0 (8.4-10.2) mg/dL - Imaging and Cardiology EKG: report reviewed, image reviewed Echo: report reviewed (07/2014 showed EF 55-60%, mild TR. ) - EKG Sinus rhythms and dysrhythmias: sinus bradycardia
[2020-01-24] MEDS: cefTRIAXone/NS 2 GM/100 ML 2 GM/100 ML BAG IV SCH (14:10)
[2020-01-24] MEDS: ZIPRASIDONE 20 MG CAP PO SCH (14:11)
--- NOTE | 2020-01-24 15:34 | Progress Note ---
Assessment and Plan --Acute Pulmonary edema unknown etiology will rule out COVID-19 -test pending s/p iv diuretics. cont to monitor inputs and output and also monitor daily weight. 2D echo showed preserved EF with normal diastolic function Cardiology following --PUI, Covid test ordered and pending Continue to follow clinically, contact isolation Follow inflammatory markers -- Schizophrenia We will resume routine home medications once reconciled. --Pulmonary nodule Incidental finding, follow pulmonary recommendation -- Hypertension We will resume routine home medications once reconciled and monitor vital signs closely. -- DVT prophylaxis Patient placed on subcutaneous heparin. -- Full code status 01/23: Covid test pending -test that was ordered yesterday somehow got canceled, reorder Covid test. continue IV antibiotic for UTI. CTA chest suggestive of 1.36 m pulmonary nodule, will consult pulmonary. Subjective Date of service: 01/24/20 Interval history: Patient seen and examined. Medical records and medication list reviewed. No acute event overnight noted by the RN. Patient denies any chest pain or difficulty breathing. Patient is tolerating diet. Pending COVID-19 status Discussed plan of care at bedside with patient. Objective - Exam Narrative Exam: GENERAL: well-developed elderly -[place] female lying on bed appeared to be in no discomfort. HEENT: Normocephalic. Atraumatic. No conjunctival congestion or icterus. Patient has moist mucous membranes. NECK: Supple. Trachea midline. CHEST/LUNGS: Clear to auscultated bilaterally, breathing nonlabored. No wheezes crackles or rhonchi. HEART/CARDIOVASCULAR: Regular in rate and rhythm. S1 and S2 positive. ABDOMEN: Abdomen is soft, nontender. Patient has normal bowel sounds. SKIN: There is no rash. Warm and dry. NEURO: No focal motor deficit. Follows command. MUSCULOSKELETAL: No joint effusion or tenderness. EXTRIMITY: No edema, no cyanosis or clubbing. PSYCH: Cooperative. - Constitutional Vitals: Vital Signs - 12hr 01/24/20 01/24/20 01/24/20 04:11 06:51 10:00 Temperature 98.0 F Pulse Rate 51 L 59 L Respiratory 16 18 20 Rate Blood Pressure 106/45 113/60 O2 Sat by Pulse 98 97 Oximetry 01/24/20 11:42 Temperature 99.5 F Pulse Rate 60 Respiratory 18 Rate Blood Pressure 105/45 O2 Sat by Pulse 97 Oximetry - Labs CBC & Chem 7: 01/24/20 04:33 01/25/20 08:48 Labs: Abnormal lab results 01/23/20 01/23/20 01/23/20 Range/Units 15:58 15:58 22:46 RBC (3.65-5.03) M/mm3 RDW (13.2-15.2) % [place] % (Auto) (0.0-7.3) % Eos % (Auto) (0.0-4.3) % D-Dimer 461.47 H (0-234) ng/mlDDU Carbon Dioxide (22-30) mmol/L POC Glucose 113 H (70-105) mg/dL Lactate Dehydrogenase 275 H (91-180) units/L 01/24/20 01/24/20 01/24/20 Range/Units 04:33 04:33 14:18 RBC 3.51 L (3.65-5.03) M/mm3 RDW 12.8 L (13.2-15.2) % [place] % (Auto) 8.8 H (0.0-7.3) % Eos % (Auto) 6.4 H (0.0-4.3) % D-Dimer (0-234) ng/mlDDU Carbon Dioxide 31 H (22-30) mmol/L POC Glucose 117 H (70-105) mg/dL Lactate Dehydrogenase (91-180) units/L HEART Score - HEART Score Troponin: Troponin T < 0.010 ng/mL (0.00-0.029) 01/22/20 19:15
--- NOTE | 2020-01-24 22:26 | Consultation ---
History of Present Illness Consult date: 01/24/20 Reason for consult: dyspnea, cough, asthma History of present illness: 74-year-old -[place] female with known history of hypertension pre senting to the emergency room with complaining of generalized body aches and weakness. She has also been having some mild cough which is nonproductive and some shortness of breath. Symptoms have been ongoing for the past 2 to 3 weeks. However symptoms got worse over the past few days and decided to report to the emergency room. Shortness of breath is worse on exertion and gets better upon resting. She denies any fever or chills, no nausea vomiting, no abdominal pain. She denies any hematuria or dysuria, she denies any chest pain, denies any syncopal episodes. Patient denies any sick contacts and no recent travel, denies any contact with anyone with COVID-19. Work-up in the emergency room today significant findings were that of pulmonary edema on the CT angiogram of the chest. All other work-up were unremarkable. Patient being admitted for CHF-new onset. Patient has history of hypertension, GERD, Asthma, Schizophrenia. Patient has history of cardiac ablation . Patient has no history of smoking, alcohol or drug abuse. Past History Past Medical History: GERD, hypertension, other (Asthma, schizophrenia) Past Surgical History: Other (Cardiac ablation, tubal ligation, hemorrhoidectomy, skin graft) Social history: no significant social history Family history: no significant family history Medications and Allergies Allergies Allergy/AdvReac Type Severity Reaction Status Date / Time No Known Allergies Allergy Verified 01/22/20 18:40 Home Medications Medication Instructions Recorded Confirmed Last Taken Type Ziprasidone [Geodon] 20 mg PO DAILY 09/26/14 01/23/20 10/28/15 History Benztropine [Cogentin] 1 tab PO BID 11/01/15 01/23/20 10/28/15 History FLUoxetine HCL [PROzac] 40 mg PO QDAY 10/06/18 01/23/20 Unknown History Ferrous Sulfate [Ferrous Sulfate 324 mg PO DAILY 10/06/18 01/23/20 Unknown History 324 MG] amLODIPine 5 mg PO DAILY 10/06/18 01/23/20 Unknown History Pantoprazole [Protonix TAB] 40 mg PO QDAY #30 tablet 07/04/19 01/23/20 Unknown Rx Ciprofloxacin HCl [Ciprofloxacin 500 mg PO Q12HR #7 tab 01/25/20 Unknown Rx TAB] Active Meds: Active Medications Acetaminophen (Acetaminophen 325 Mg Tab) 650 mg PO Q4H PRN PRN Reason: Pain MILD(1-3)/Fever >100.5/[place] Amlodipine Besylate (Amlodipine 5 Mg Tab) 5 mg PO DAILY [facility] Last Admin: 01/24/20 09:20 Dose: 5 mg Documented by: Benztropine Mesylate (Benztropine 2 Mg Tab) 2 mg PO BID [facility] Last Admin: 01/24/20 09:22 Dose: 2 mg Documented by: Ferrous Sulfate (Ferrous Sulfate 325 Mg Tab) 325 mg PO DAILY [facility] Last Admin: 01/24/20 09:20 Dose: 325 mg Documented by: Fluoxetine HCl (Fluoxetine 20 Mg Cap) 40 mg PO QDAY [facility] Last Admin: 01/24/20 09:20 Dose: 40 mg Documented by: Furosemide (Furosemide 40 Mg/4 Ml Inj) 40 mg IV QDAY [facility] Heparin Sodium (Porcine) (Heparin 5,000 Unit/1 Ml Vial) 5,000 unit SUB-Q Q8HR [facility] Last Admin: 01/24/20 14:12 Dose: 5,000 unit Documented by: Ceftriaxone Sodium (Rocephin/Ns 2 Gm/100 Ml) 2 gm in 100 mls @ 200 mls/hr IV Q24H [facility] Last Admin: 01/24/20 14:10 Dose: 200 mls/hr Documented by: Insulin Human Regular (Insulin Regular, Human 100 Unit/Ml 3ml Vial) 0 unit SUB- Q ACHS [facility]; Protocol Last Admin: 01/24/20 14:25 Dose: Not Given Documented by: Magnesium Hydroxide (Magnesium Hydroxide (Mom) Oral Liqd Udc) 30 ml PO Q4H PRN PRN Reason: Constipation Morphine Sulfate (Morphine 2 Mg/1 Ml Inj) 2 mg IV Q4H PRN PRN Reason: Pain, Moderate (4-6) Ondansetron HCl (Ondansetron 4 Mg/2 Ml Inj) 4 mg IV Q8H PRN PRN Reason: Nausea And Vomiting Pantoprazole Sodium (Pantoprazole 40 Mg Tab) 40 mg PO QDAC [facility] Last Admin: 01/24/20 08:42 Dose: 40 mg Documented by: Sodium Chloride (Sodium Chloride 0.9% 10 Ml Flush Syringe) 10 ml IV BID [facility] Last Admin: 01/24/20 09:21 Dose: 10 ml Documented by: Sodium Chloride (Sodium Chloride 0.9% 10 Ml Flush Syringe) 10 ml IV PRN PRN PRN Reason: LINE FLUSH Ziprasidone (Ziprasidone 20 Mg Cap) 20 mg PO DAILY [facility] Last Admin: 01/24/20 14:11 Dose: 20 mg Documented by: Review of Systems All systems: negative Physical Examination Vital signs: Vital Signs Temp Pulse Resp BP Pulse Ox 98.4 F 58 L 17 129/62 100 01/22/20 18:46 01/22/20 18:46 01/22/20 18:46 01/22/20 18:46 01/22/20 18:46 General appearance: no acute distress Eyes: non-icteric Neck: supple, no JVD Effort: mildly labored Ascultation: Bilateral: rales Cardiovascular: regular rate and rhythm Gastrointestinal: normoactive bowel sounds, soft, non-tender Integumentary: normal Extremities: no cyanosis, no edema Musculoskeletal: no deformities non-focal exam, pupils equal and round mood appropriate Results - Laboratory Findings CBC and BMP: 01/24/20 04:33 01/25/20 08:48 PT/INR, D-dimer PT 13.6 Sec. (12.2-14.9) 01/24/20 04:33 INR 1.06 (0.87-1.13) 01/24/20 04:33 D-Dimer 461.47 ng/mlDDU (0-234) H 01/23/20 15:58 Abnormal lab findings: Abnormal Labs 01/22/20 01/22/20 01/22/20 19:15 19:15 19:15 RBC 3.29 L RDW 12.7 L [place] % (Auto) 8.2 H Eos % (Auto) 5.7 H Eos # (Auto) 0.5 H D-Dimer Carbon Dioxide Creatinine 0.5 L POC Glucose Magnesium 1.60 L Lactate Dehydrogenase Total Creatine Kinase 155 H Albumin 3.5 L 01/22/20 01/23/20 01/23/20 23:23 15:58 15:58 RBC RDW [place] % (Auto) Eos % (Auto) Eos # (Auto) D-Dimer 291.13 H 461.47 H Carbon Dioxide Creatinine POC Glucose Magnesium Lactate Dehydrogenase 275 H Total Creatine Kinase Albumin 01/23/20 01/24/20 01/24/20 22:46 04:33 04:33 RBC 3.51 L RDW 12.8 L [place] % (Auto) 8.8 H Eos % (Auto) 6.4 H Eos # (Auto) D-Dimer Carbon Dioxide 31 H Creatinine POC Glucose 113 H Magnesium Lactate Dehydrogenase Total Creatine Kinase Albumin 01/24/20 01/24/20 14:18 16:08 RBC RDW [place] % (Auto) Eos % (Auto) Eos # (Auto) D-Dimer Carbon Dioxide Creatinine POC Glucose 117 H 107 H Magnesium Lactate Dehydrogenase Total Creatine Kinase Albumin - Diagnostic Findings Chest x-ray: report reviewed, image reviewed CT scan - chest: report reviewed, image reviewed Additional studies: CTA CHEST WITH IV CONTRAST 01/23/20 INDICATION / CLINICAL INFORMATION: P.E. PROTOCOL Shortness of breath, elevated D-dimer. TECHNIQUE: Axial CT images were obtained through the chest after injection of 100 mL Omnipaque 350 IV contrast. 3 plane MIP and/or 3D reconstructions were produced. All CT scans at this location are performed using CT dose reduction for ALARA by means of automated exposure control. COMPARISON: Chest radiograph one day prior and CT chest 12/04/2012 FINDINGS: PULMONARY ARTERIES: No pulmonary emboli. THORACIC AORTA: No significant abnormality. HEART: Borderline heart size. CORONARY ARTERIES: No significant calcification. PLEURA: No pleural effusion. No pneumothorax. LYMPH NODES: No significant adenopathy. LUNGS: There is mild patchy groundglass opacity and interlobular septal thickening, suggesting mild pulmonary edema. There is a 1.3 cm pulmonary nodule in the right apex (series 4, image 12). There appears to be adjacent right apical scarring. ADDITIONAL FINDINGS: None. UPPER ABDOMEN: No acute findings. Cholelithiasis. SKELETAL STRUCTURES: No significant osseous abnormality. IMPRESSION: 1. No CT evidence for pulmonary embolism. 2. Borderline heart size. Mild patchy groundglass and interlobular septal thickening, suggesting mild pulmonary edema. 3. A 1.3 cm pulmonary nodule in the right apex is indeterminate. Recommend PE T/CT or tissue sampling for further evaluation. 4. Cholelithiasis. INCIDENTAL PULMONARY NODULE RECOMMENDATION RECOMMENDATION: Solid Nodule size >8 mm -- Single - Low Risk or High Risk Patient: Consider CT at 3 months, PET/CT, or tissue sampling CHEST PA AND LATERAL VIEWS 01/22/20 INDICATION: cough. COMPARISON: None. FINDINGS: Support devices: None. Heart: Within normal limits. Lungs/Pleura: No acute pulmonary or pleural findings. There is mild elevation of the left hemidiaphragm. IMPRESSION: 1. No acute findings. Assessment and Plan 4-year-old -Japanese female with known history of hypertension presenting to the emergency room with complaining of generalized body aches and weakness. She has also been having some mild cough which is nonproductive and some shortness of breath. Symptoms have been ongoing for the past 2 to 3 weeks. However symptoms got worse over the past few days and decided to report to the emergency room. Shortness of breath is worse on exertion and gets better upon resting. She denies any fever or chills, no nausea vomiting, no abdominal pain. She denies any hematuria or dysuria, she denies any chest pain, denies any syncopal episodes. Patient denies any sick contacts and no recent travel, denies any contact with anyone with COVID-19. Work-up in the emergency room today significant findings were that of pulmonary edema on the CT angiogram of the chest. All other work-up were unremarkable. Patient being admitted for CHF-new onset. Patient has history of hypertension, GERD, Asthma, Schizophrenia. Patient has history of cardiac ablation Patient has no history of smoking, alcohol or drug abuse. - Patient Problems (1) Cough Status: Acute Plan to address problem: Robitussin DM 10 ml po q 6 hours prn for cough. (2) Generalized body aches Status: Acute Plan to address problem: Management as per primary care. (3) Hypertension Status: Acute Plan to address problem: Management as per primary care. (4) Pulmonary edema Status: Acute Qualifiers: Chronicity: acute Qualified Code(s): J81.0 - Acute pulmonary edema Plan to address problem: Patient is on Lasix. (5) SOB (shortness of breath) Status: Acute Plan to address problem: Likely from pulmonary edema. Patient receiving lasix. (6) Asthma Status: Chronic Plan to address problem: Albuterol inhaler 2 puffs po qid prn for shortness of breath. (7) History of CVA (cerebrovascular accident) Status: Chronic Plan to address problem: Management as per primary care. (8) History of cardiac radiofrequency ablation Status: Chronic Plan to address problem: Management as per cardiology. (9) Schizophrenia Status: Chronic Plan to address problem: Management as per primary care and psychiatry. (10) GERD (gastroesophageal reflux disease) Status: Acute Plan to address problem: Patient is on Protonix.
[2020-01-25] MEDS: HEPARIN 5,000 UNIT/1 ML VIAL SUB-Q SCH ×2 (06:09→14:15)
[2020-01-25] MEDS: INSULIN REGULAR, HUMAN 100 UNIT/ML 3ML VIAL SUB-Q SCH ×4 (07:50→16:30)
[2020-01-25] MEDS: amLODIPine 5 MG TAB PO SCH (09:16)
[2020-01-25] MEDS: FERROUS SULFATE 325 MG TAB PO SCH (09:16)
[2020-01-25] MEDS: FLUoxetine 20 MG CAP PO SCH (09:16)
[2020-01-25] MEDS: BENZTROPINE 2 MG TAB PO SCH (09:16)
[2020-01-25] MEDS: ZIPRASIDONE 20 MG CAP PO SCH (09:17)
[2020-01-25] MEDS: PANTOPRAZOLE 40 MG TAB PO SCH (09:17)
[2020-01-25 09:57] LABS: BUN/Creatinine Ratio 20; Blood Urea Nitrogen 12 mg/dL (7-17); Calcium 9.5 mg/dL (8.4-10.2); Hemolysis Index 10
[2020-01-25] MEDS ORDERED: FUROSEMIDE 40 MG/4 ML INJ IV SCH (10:00)
--- NOTE | 2020-01-25 10:43 | Progress Note ---
Assessment and Plan given constitutional sxs, covid is being ruled out tele unremarkable tte reviewed stable cv status - Patient Problems (1) Hypertension Current Visit: Yes Status: Acute (2) History of CVA (cerebrovascular accident) Current Visit: Yes Status: Chronic (3) History of cardiac radiofrequency ablation Current Visit: Yes Status: Chronic (4) GERD (gastroesophageal reflux disease) Current Visit: No Status: Acute Subjective Date of service: 01/25/20 Objective Vital Signs Temp Pulse Resp BP Pulse Ox 01/25/20 05:23 98.2 F 56 L 15 110/49 96 01/24/20 23:17 97.8 F 60 18 145/78 97 01/24/20 22:00 18 01/24/20 20:35 53 L 98 01/24/20 20:34 98.6 F 54 L 18 114/63 96 01/24/20 15:42 98.5 F 64 18 107/56 95 01/24/20 11:42 99.5 F 60 18 105/45 97 - Physical Examination HEENT: Positive: PERRL, Normocephaly, Mucus Membranes Moist Neck: Positive: neck supple, trachea midline Neuro: Positive: Grossly Intact Abdomen: Negative: Tender Skin: Negative: Rash Musculoskeletal: No Pain Extremities: Absent: edema - Labs and Meds Comprehensive Metabolic Panel 01/25/20 Range/Units 08:48 Sodium 142 (137-145) mmol/L Potassium 4.6 D (3.6-5.0) mmol/L Chloride 105.3 (98-107) mmol/L Carbon Dioxide 31 H (22-30) mmol/L BUN 12 (7-17) mg/dL Creatinine 0.6 (0.6-1.2) mg/dL Glucose 84 (65-100) mg/dL Calcium 9.5 (8.4-10.2) mg/dL - Imaging and Cardiology EKG: report reviewed, image reviewed Echo: report reviewed (07/2014 showed EF 55-60%, mild TR. ) - EKG Sinus rhythms and dysrhythmias: sinus bradycardia
[2020-01-25] MEDS: cefTRIAXone/NS 2 GM/100 ML 2 GM/100 ML BAG IV SCH (11:25)
[2020-01-25 12:00] VITALS: BP 100/58
--- NOTE | 2020-01-25 16:08 | Discharge Summary ---
Providers - Providers Date of Admission: 01/23/20 02:07 Date of discharge: 01/25/20 Attending physician: JT NEGRETE 01/23/20 03:45 Consult to Physician [CONS] Routine Comment: Consulting Provider: KARSON FULLER Physician Instructions: Reason For Exam: CHF- New onset 01/24/20 15:28 Consult to Physician [CONS] Routine Comment: Consulting Provider: SIRENA CONWAY Physician Instructions: Reason For Exam: pulmonary nodule Primary care physician: JOHNATHON DAVE Hospitalization Condition: Critical Hospital course: Discharge diagnosis: --Acute Pulmonary edema, resolved unknown etiology negative for COVID-19 s/p iv diuretics. 2D echo showed preserved EF with normal diastolic function --PUI, Covid test ordered and negative -- Schizophrenia We will resume routine home medications once reconciled. --Pulmonary nodule Incidental finding, 1.3cm in size need repeat CT Chest in 3 months per guidelines f/u with pulmonary outpt -- Hypertension resume routine home medications --UTI, POA, treated with abx -- DVT prophylaxis Patient placed on subcutaneous heparin. -- Full code status Disposition: DC-01 TO HOME OR SELFCARE Time spent for discharge: 34 minutes Core Measure Documentation - Palliative Care Palliative Care/ Comfort Measures: Not Applicable - Core Measures Any of the following diagnoses?: none Exam - Physical Exam Narrative exam: GENERAL: well-developed elderly -[place] female lying on bed appeared to be in no discomfort. HEENT: Normocephalic. Atraumatic. No conjunctival congestion or icterus. Patient has moist mucous membranes. NECK: Supple. Trachea midline. CHEST/LUNGS: Clear to auscultated bilaterally, breathing nonlabored. No wheezes crackles or rhonchi. HEART/CARDIOVASCULAR: Regular in rate and rhythm. S1 and S2 positive. ABDOMEN: Abdomen is soft, nontender. Patient has normal bowel sounds. SKIN: There is no rash. Warm and dry. NEURO: No focal motor deficit. Follows command. MUSCULOSKELETAL: No joint effusion or tenderness. EXTRIMITY: No edema, no cyanosis or clubbing. PSYCH: Cooperative. - Constitutional Vitals: Temp Pulse Resp BP Pulse Ox 97.6 F 62 18 100/58 95 01/25/20 10:59 01/25/20 10:59 01/25/20 10:59 01/25/20 10:59 01/25/20 10:59 Plan Activity: advance as tolerated Weight Bearing Status: Weight Bear as Tolerated Diet: low fat, low salt Additional Instructions: Repeat CT chest in 3 months for pulmonary nodule. F/u with health information internship in one week Follow up with: JOHNATHON DAVE MD [Primary Care Provider] - 3-5 Days MARISELA KIM MD [Staff Physician] - 7 Days Prescriptions: Ciprofloxacin HCl [Ciprofloxacin TAB] 500 mg PO Q12HR #7 tab
== END 2020-01-25 19:40 | disposition home or self-care (01) | DRG 189 ==
LOC: ED 17:25 → OBSVTOIN 01-23 02:07 → 4A 01-23 02:07 → 3A 01-23 21:18
PROVIDERS: ADMIT Internal Medicine Geriatric Medicine; ATTEND Internal Medicine
DX: J81.0 Acute pulmonary edema (principal); N39.0 Urinary tract infection, site not specified; I10 Essential (primary) hypertension; K21.9 Gastro-esophageal reflux disease without esophagitis; M19.90 Unspecified osteoarthritis, unspecified site; F20.9 Schizophrenia, unspecified; J45.909 Unspecified asthma, uncomplicated; R09.89 Other specified symptoms and signs involving the circulatory and respiratory systems; R19.7 Diarrhea, unspecified; R52 Pain, unspecified; Z20.828 Contact with and (suspected) exposure to other viral communicable diseases; R53.1 Weakness; Z86.73 Personal history of transient ischemic attack (TIA), and cerebral infarction without residual deficits; Z98.51 Tubal ligation status
CPT/HCPCS: 36415; 70450; 71046; 71275; 74018; 80048; 80053; 81001; 82550; 82728; 82962; 83615; 83735; 83880; 84145; 84484; 85025; 85379; 85610; 86140; 93005; 93306; 96361; 96374; G0378; J0696; J1644; J1815; J1940; J3475; J7030; J7042; Q9967; U0003

== ENCOUNTER 2020-02-21 13:14 | Emergency (ER) | payer MEDICARE ==
--- NOTE | 2020-02-21 13:28 | Event Note ---
ED Screening Note Date of service: 02/21/20 Time: 13:27 ED Screening Note: Patient complains of headache and neck pain after a fall injury today No LOC per patient or vomiting or vision changes She denies blood thinners This initial assessment/diagnostic orders/clinical plan/treatment(s) is/are subject to change based on patients health status, clinical progression and re- assessment by fellow clinical providers in the ED. Further treatment and workup at subsequent clinical providers discretion. Patient/guardian urged not to elope from the ED as their condition may be serious if not clinically assessed and managed. Initial orders include: Labs
[2020-02-21 14:13] LABS: Bilirubin,Urine NEG (Negative); Blood,Urine NEG (Negative); Color,Urine Straw (Yellow); Mucus,Urine FEW /HPF; Protein,Urine <15 mg/dL mg/dL (Negative); Urobilinogen,Urine < 2.0 mg/dL (<2.0); WBC,Urine < 1.0 /HPF (0.0-6.0)
[2020-02-21 14:55] LABS: Basophils # (Auto) 0.1 K/mm3 (0.0-0.1); Basophils % (Auto) 0.9 % (0.0-1.8); Eosinophils # (Auto) 0.3 K/mm3 (0.0-0.4); Eosinophils % (Auto) 3.9 % (0.0-4.3); Hematocrit 35.5 % (30.3-42.9); Hemoglobin 11.6 gm/dl (10.1-14.3); Lymphocytes # (Auto) 1.2 K/mm3 (1.2-5.4); Lymphocytes % (Auto) 15.9 % (13.4-35.0); Mean Corpuscular HGB Conc 33 % (30-34); Mean Corpuscular Volume 92 fl (79-97); Monocytes # (Auto) 0.5 K/mm3 (0.0-0.8); Monocytes % (Auto) 7.1 % (0.0-7.3); Platelet Count 314 K/mm3 (140-440); Red Blood Count 3.85 M/mm3 (3.65-5.03); Red Cell Distribution Width 12.5 % (13.2-15.2)
[2020-02-21 15:15] LABS: Alanine Aminotransferase 13 units/L (7-56); Albumin 4.2 g/dL (3.9-5); Blood Urea Nitrogen 10 mg/dL (7-17); Calcium 10.3 mg/dL (8.4-10.2); Hemolysis Index 9
--- NOTE | 2020-02-21 15:19 | Cat Scan Report ---
CT BRAIN: 02/21/2020 INDICATION / CLINICAL INFORMATION: pain after fall with head injury. COMPARISON: 01/22/2020 FINDINGS: BRAIN/INTRACRANIAL STRUCTURES: Unenhanced CT images of the brain demonstrate no evidence of acute abn ormality. Chronic encephalomalacia is again noted in the right inferior frontal cortex, with small additional a varghese of encephalomalacia in the high right frontal cortex. Old left putaminal lacunar infarct is again noted. There is no evidence of acute ischemic injury, hemorrhage, or mass. There are no abnormal extra-axial fluid collections. Ventricles and sulci are slightly prominent in size, consistent with normal age-related atrophic torre ge. EXTRACRANIAL STRUCTURES: Unremarkable. IMPRESSION: No acute abnormality. Chronic right frontal encephalomalacia, unchanged when compared to 01/22/2020. All CT scans at this location are performed using dose reduction to ALARA by means of automated expos ure control. Signer Name: Trevor Espinal MD Signed: 02/21/2020 3:15 PM Workstation Name: [id number]
--- NOTE | 2020-02-21 15:25 | Cat Scan Report ---
CT CERVICAL SPINE: 02/21/2020 INDICATION / CLINICAL INFORMATION: Trauma. COMPARISON: None available. FINDINGS: CT images of the cervical spine were obtained. Images are evaluated in the axial, coronal, and sagitt al planes. There is no evidence of acute abnormality. Slight reversal of cervical lordosis is centered at the C5 level. Degenerative anterolisthesis is present at the C4-5 level associated with bilateral facet degenerativ e changes. Prominent right-sided facet degenerative changes are present from C2 through C6. Minimal left-sided f acet degenerative changes are present. CRANIOCERVICAL JUNCTION: Unremarkable. PARASPINAL STRUCTURES: Unremarkable IMPRESSION: No acute abnormality. Degenerative changes. No significant change when compared to 08/30/2018. All CT scans at this location are performed using dose reduction to ALARA by means of automated expos ure control. Signer Name: Trevor Espinal MD Signed: 02/21/2020 3:20 PM Workstation Name: [id number]
[2020-02-21 15:40] LABS: BUN/Creatinine Ratio 20
--- NOTE | 2020-02-21 16:00 | Emergency Department Report ---
ED Fall HPI - General Chief Complaint: Fall Stated Complaint: NECK PAIN Time Seen by Provider: 02/21/20 13:26 Source: patient Mode of arrival: Ambulatory - History of Present Illness Initial Comments: 74-year-old female, history of schizophrenia, hypertension, CVA, presents to the ED following a fall last night. I spoke with patient's son. He states patient often falls asleep on the toilet, and then falls when she is getting up off of the toilet stool. Son states patient stands up too fast and passes out and hits her head. Patient and son confirmed that this is what happened last night. Patient fell asleep on the toilet. Son went to check on her in the bathroom and saw that she was asleep while sitting on the toilet, so he told her to get up and go into her room. Patient fell as she was getting up. Patient complains of mild headache and neck pain. She denies any back pain. Patient is ambulatory. MD Complaint: fall -: Last night Fall From: other (toilet) When Fall Occurred: recurrent falls, other (last night) Fall Witnessed: yes, by family Place Fall Occurred: home Loss of Consciousness: none Prolonged Down Time?: no Symptoms Prior to Fall: none Location: head, neck Severity: mild Associated Symptoms: headache, neck pain. denies: numbness, weakness, chest paint, shortness of breath, abdominal pain, unable to walk, vertigo - Related Data Home Medications Medication Instructions Recorded Confirmed Last Taken Ziprasidone [Geodon] 20 mg PO DAILY 09/26/14 01/23/20 10/28/15 Benztropine [Cogentin] 1 tab PO BID 11/01/15 01/23/20 10/28/15 FLUoxetine HCL [PROzac] 40 mg PO QDAY 10/06/18 01/23/20 Unknown Ferrous Sulfate [Ferrous Sulfate 324 mg PO DAILY 10/06/18 01/23/20 Unknown 324 MG] amLODIPine 5 mg PO DAILY 10/06/18 01/23/20 Unknown Previous Rx's Medication Instructions Recorded Last Taken Type Pantoprazole [Protonix TAB] 40 mg PO QDAY #30 tablet 07/04/19 Unknown Rx Ciprofloxacin HCl [Ciprofloxacin 500 mg PO Q12HR #7 tab 01/25/20 Unknown Rx TAB] Naproxen [Naprosyn] 500 mg PO BID #20 tablet 02/21/20 Unknown Rx Allergies Allergy/AdvReac Type Severity Reaction Status Date / Time No Known Allergies Allergy Verified 01/22/20 18:40 ED Review of Systems ROS: Stated complaint: NECK PAIN Other details as noted in HPI Comment: All other systems reviewed and negative Constitutional: denies: fever Respiratory: denies: shortness of breath Cardiovascular: denies: chest pain Gastrointestinal: denies: abdominal pain, vomiting, diarrhea Musculoskeletal: as per HPI Neurological: headache ED Past Medical Hx - Past Medical History Hx Hypertension: Yes Hx CVA: Yes Hx Heart Attack/AMI: No Hx GERD: Yes Hx Liver Disease: No Hx Renal Disease: No Hx Sickle Cell Disease: No Hx Arthritis: Yes Hx Seizures: No Hx Psychiatric Treatment: Yes (schizophrenia) Hx Asthma: Yes Hx COPD: No Hx HIV: No Additional medical history: Heart racing, burned with hot oil ij feb 2019 - Surgical History Hx Pacemaker: No Hx Internal Defibrillator: No Additional Surgical History: hemmorhoidectomy. tubal ligation. cardiac ablasion, skin gradr - Social History Smoking Status: Never Smoker - Medications Home Medications: Home Medications Medication Instructions Recorded Confirmed Last Taken Type Ziprasidone [Geodon] 20 mg PO DAILY 09/26/14 01/23/20 10/28/15 History Benztropine [Cogentin] 1 tab PO BID 11/01/15 01/23/20 10/28/15 History FLUoxetine HCL [PROzac] 40 mg PO QDAY 10/06/18 01/23/20 Unknown History Ferrous Sulfate [Ferrous Sulfate 324 mg PO DAILY 10/06/18 01/23/20 Unknown History 324 MG] amLODIPine 5 mg PO DAILY 10/06/18 01/23/20 Unknown History Pantoprazole [Protonix TAB] 40 mg PO QDAY #30 tablet 07/04/19 01/23/20 Unknown Rx Ciprofloxacin HCl [Ciprofloxacin 500 mg PO Q12HR #7 tab 01/25/20 Unknown Rx TAB] Naproxen [Naprosyn] 500 mg PO BID #20 tablet 02/21/20 Unknown Rx ED Physical Exam - General Limitations: No Limitations General appearance: alert, in no apparent distress - Head Head exam: Present: atraumatic, normocephalic - Eye Eye exam: Present: normal appearance, EOMI - ENT ENT exam: Present: mucous membranes moist - Neck Neck exam: Present: normal inspection, tenderness (mild left-sided paraspinal tenderness) - Respiratory Respiratory exam: Present: normal lung sounds bilaterally. Absent: respiratory distress - Cardiovascular Cardiovascular Exam: Present: regular rate, normal rhythm - GI/Abdominal GI/Abdominal exam: Present: soft. Absent: distended, tenderness - Extremities Exam Extremities exam: Present: normal inspection, full ROM - Back Exam Back exam: Absent: vertebral tenderness - Neurological Exam Neurological exam: Present: alert, oriented X3 - Psychiatric Psychiatric exam: Present: normal affect, normal mood - Skin Skin exam: Present: warm, dry, intact ED Course Vital Signs 02/21/20 02/21/20 13:25 16:28 Temperature 97.9 F 97.7 F Pulse Rate 73 59 L Respiratory 18 Rate Blood Pressure 166/95 151/78 O2 Sat by Pulse 98 98 Oximetry ED Medical Decision Making - Lab Data Result diagrams: 02/21/20 14:12 02/21/20 14:12 - Radiology Data Radiology results: report reviewed, image reviewed - Medical Decision Making 74-year-old female with history of frequent falls presents to ED after falling at home last night. CT head and C-spine are negative for any acute findings. Patient is ambulatory, no new neuro deficits. Unremarkable. Patient will be discharged home at this time. Advised son to have patient follow-up with PCP. - Differential Diagnosis Vasovagal syncope, anemia, dehydration Critical care attestation.: If time is entered above; I have spent that time in minutes in the direct care of this critically ill patient, excluding procedure time. ED Disposition Clinical Impression: Fall, Closed head injury, Acute cervical myofascial strain Disposition: - TO HOME OR SELFCARE Is pt being admited?: No Condition: Stable Instructions: Cervical Sprain, Head Injury, Adult, [id number] Prescriptions: Naproxen [Naprosyn] 500 mg PO BID #20 tablet Referrals: PRIMARY CARE, [Primary Care Provider] - 3-5 Days Time of Disposition: 16:23
[2020-02-21 16:29] VITALS: BP 151/78
== END 2020-02-21 16:54 | disposition home or self-care (01) ==
LOC: ED 13:14
DX: S09.90XA Unspecified injury of head, initial encounter (principal); S16.1XXA Strain of muscle, fascia and tendon at neck level, initial encounter; I10 Essential (primary) hypertension; K21.9 Gastro-esophageal reflux disease without esophagitis; F20.9 Schizophrenia, unspecified; J45.909 Unspecified asthma, uncomplicated; Z98.890 Other specified postprocedural states; Z79.899 Other long term (current) drug therapy; W19.XXXA Unspecified fall, initial encounter; Y93.89 Activity, other specified; Y92.89 Other specified places as the place of occurrence of the external cause; Y99.8 Other external cause status
CPT/HCPCS: 36415; 70450; 72125; 80053; 81001; 85025

== ENCOUNTER 2020-03-02 20:54 | Emergency (ER) | payer MEDICARE ==
[2020-03-02 21:05] VITALS: BP 140/59
--- NOTE | 2020-03-02 22:51 | Emergency Department Report ---
Upper Extremity - HPI Chief Complaint: Extremity Injury, Upper Stated Complaint: ARM SWELLING/FLUID BUILD UP Upper Extremity: Left Elbow (pain and swelling x 2 weeks ) Occurred When: >5 Days Mechanism: Fall Severity: moderate Symptoms: Yes Pain with Movement, Yes Swelling, No Deformity, No Limited Range of Movement, No Numbness, No Weakness, No Bruising/Ecchymosis, No Laceration or Abrasion Other History: Patient is a 74-year-old female who presents for left posterior elbow pain. States she fell off a stool 2 weeks ago. Pain and swelling intermittently since. Patient does have history of osteoarthritis. Pain described as 5/10 exacerbated by movement and palpation. Pain is relieved by nothing tried. Range of motion is intact there is no abrasion laceration or bleeding. No obvious deformity. ED Review of Systems ROS: Stated complaint: ARM SWELLING/FLUID BUILD UP Other details as noted in HPI Constitutional: denies: chills, fever Eyes: denies: eye pain, eye discharge, vision change ENT: denies: ear pain, throat pain Respiratory: denies: cough, shortness of breath, wheezing Cardiovascular: denies: chest pain, palpitations Endocrine: no symptoms reported Gastrointestinal: denies: abdominal pain, nausea, diarrhea Genitourinary: denies: urgency, dysuria, discharge Musculoskeletal: arthralgia, other (left posterior elbow pain ) Skin: denies: rash, lesions Neurological: denies: headache, weakness, paresthesias Psychiatric: denies: anxiety, depression Hematological/Lymphatic: denies: easy bleeding, easy bruising ED Past Medical Hx - Past Medical History Previous Medical History?: Yes Hx Hypertension: Yes Hx CVA: Yes Hx Heart Attack/AMI: No Hx GERD: Yes Hx Liver Disease: No Hx Renal Disease: No Hx Sickle Cell Disease: No Hx Arthritis: Yes Hx Seizures: No Hx Psychiatric Treatment: Yes (schizophrenia) Hx Asthma: Yes Hx COPD: No Hx HIV: No Additional medical history: Heart racing, burned with hot oil ij feb 2019 - Surgical History Past Surgical History?: Yes Hx Pacemaker: No Hx Internal Defibrillator: No Additional Surgical History: hemmorhoidectomy. tubal ligation. cardiac ablasion, skin gradr - Social History Smoking Status: Never Smoker Substance Use Type: None - Medications Home Medications: Home Medications Medication Instructions Recorded Confirmed Last Taken Type Ziprasidone [Geodon] 20 mg PO DAILY 09/26/14 01/23/20 10/28/15 History Benztropine [Cogentin] 1 tab PO BID 11/01/15 01/23/20 10/28/15 History FLUoxetine HCL [PROzac] 40 mg PO QDAY 10/06/18 01/23/20 Unknown History Ferrous Sulfate [Ferrous Sulfate 324 mg PO DAILY 10/06/18 01/23/20 Unknown History 324 MG] amLODIPine 5 mg PO DAILY 10/06/18 01/23/20 Unknown History Pantoprazole [Protonix TAB] 40 mg PO QDAY #30 tablet 07/04/19 01/23/20 Unknown Rx Ciprofloxacin HCl [Ciprofloxacin 500 mg PO Q12HR #7 tab 01/25/20 Unknown Rx TAB] Naproxen [Naprosyn] 500 mg PO BID #20 tablet 02/21/20 Unknown Rx HYDROcodone/APAP 5-325 [Hyden 1 each PO Q6HR PRN #12 tablet 03/02/20 Unknown Rx 5-325 mg TAB] Upper Extremity Exam - Exam General: Vital signs noted. No distress. Alert and acting appropriately. Head and Torso: No HEENT Abnormality, No Neck Tenderness, No Chest/Lungs Abnormality, No Abdominal Tenderness, No Back Tenderness Shoulder Exam: Yes Normal Range of Motion in Shoulder, No Shoulder Tenderness, No Clavicle Tenderness, No Shoulder Deformity, No AC Joint Tenderness Arm Exam: No Arm/Humerus Tenderness, No Arm Deformity Elbow: Yes Elbow Tenderness, Yes Normal Range of Motion in Elbow, No Elbow Deformity Forearm: Yes Pain with Pronation, Yes Pain with Supination, No Forearm Tenderness, No Forearm Deformity Wrist: Yes Normal ROM in Wrist, No Wrist Tenderness, No Wrist Deformity, No Snuffbox Tenderness, No Pain with Axial Thumb Compression Hand: Yes Normal ROM in Digit(s), No Hand Tenderness, No Hand Deformity, No Digit Tenderness, No Digit(s) Deformity, No Tendon Dysfunction CMS Exam: Yes Normal Distal Pulses, Yes Normal Capillary Refill, Yes Normal Distal Sensation, No Broken Skin ED Course Vital Signs 03/02/20 21:05 Temperature 98.9 F Pulse Rate 88 Respiratory 18 Rate Blood Pressure 140/59 [Left] O2 Sat by Pulse 97 Oximetry ED Medical Decision Making - Radiology Data Radiology results: report reviewed, image reviewed Ordering Physician: GAIL CARBAJAL NP Date of Service: 03/02/20 Procedure(s): XR elbow 3+V LT Accession Number(s): [id number] cc: GAIL CARBAJAL NP Fluoro Time In Minutes: LEFT ELBOW 3 VIEW(S) INDICATION / CLINICAL INFORMATION: MAIN COMPARISON: None available. FINDINGS: BONES / JOINT(S): No definite acute fracture or subluxation. Moderate arthrosis is noted of the elbow. Subchondral cystic degenerative changes are noted of the capitellum. SOFT TISSUES: Mild soft tissue swelling and edema over the proximal forearm and posterior aspect of the elbow. Moderate elbow effusion is noted. Posterior fat pad is visualized. Further evaluation with noncontrast CT is recommended to rule out radiographically occult fracture. ADDITIONAL FINDINGS: None. Signer Name: Jorge Tee MD Signed: 03/02/2020 10:48 PM Workstation Name: [id number] Transcribed By: Dictated By: JORGE TEE Electronically Authenticated By: JORGE TEE Signed Date/Time: 03/02/202247 DD/ 44 TD/TT: - Medical Decision Making xray left elbow BONES / JOINT(S): No definite acute fracture or subluxation. Moderate arthrosis is noted of the elbow. Subchondral cystic degenerative changes are noted of the capitellum. SOFT TISSUES: Mild soft tissue swelling and edema over the proximal forearm and posterior aspect of the elbow. Moderate elbow effusion is noted. Posterior fat pad is visualized. Further evaluation with noncontrast CT is recommended to rule out radiographically occult fracture. pain is improved with medication given in ed. plan: posterior long arm splint, sling, lortab prn pain, follow up with orthopedics in 2-3 days pt and adult son verbalized agreement and understanding of discharge plan. splint check will be completed prior to discharge to home. Critical care attestation.: If time is entered above; I have spent that time in minutes in the direct care of this critically ill patient, excluding procedure time. ED Disposition Clinical Impression: Elbow fracture, left Qualifiers: Encounter type: initial encounter Fracture type: closed Qualified Code(s): S42.402A - Unspecified fracture of lower end of left humerus, initial encounter for closed fracture Disposition: TO HOME OR SELFCARE Is pt being admited?: No Does the pt Need Aspirin: No Condition: Stable Instructions: Radial Head Elbow Fracture Rehab-SportsMed, Cast or Splint Care, Adult Prescriptions: HYDROcodone/APAP 5-325 [Hyden 5-325 mg TAB] 1 each PO Q6HR PRN #12 tablet PRN Reason: Pain Referrals: AIMEE OCASIO MD [Staff Physician] - 3-5 Days Time of Disposition: 00:48
[2020-03-02] MEDS ORDERED: ACETAMINOPHEN W/CODEINE 300-30 MG TAB PO ONE (22:52)
--- NOTE | 2020-03-02 22:52 | XRay Report ---
LEFT ELBOW 3 VIEW(S) INDICATION / CLINICAL INFORMATION: MAIN COMPARISON: None available. FINDINGS: BONES / JOINT(S): No definite acute fracture or subluxation. Moderate arthrosis is noted of the elbow . Subchondral cystic degenerative changes are noted of the capitellum. SOFT TISSUES: Mild soft tissue swelling and edema over the proximal forearm and posterior aspect of t he elbow. Moderate elbow effusion is noted. Posterior fat pad is visualized. Further evaluation with noncontrast CT is recommended to rule out radiographically occult fracture. ADDITIONAL FINDINGS: None. Signer Name: Crispin Cook MD Signed: 03/02/2020 10:48 PM Workstation Name: [id number]
== END 2020-03-03 01:12 | disposition home or self-care (01) ==
LOC: ED 20:54
DX: S42.402A Unspecified fracture of lower end of left humerus, initial encounter for closed fracture (principal); I10 Essential (primary) hypertension; K21.9 Gastro-esophageal reflux disease without esophagitis; F20.9 Schizophrenia, unspecified; J45.909 Unspecified asthma, uncomplicated; Z98.890 Other specified postprocedural states; Z98.51 Tubal ligation status; Z79.899 Other long term (current) drug therapy; Z86.73 Personal history of transient ischemic attack (TIA), and cerebral infarction without residual deficits; W18.30XA Fall on same level, unspecified, initial encounter; Y93.89 Activity, other specified; Y92.89 Other specified places as the place of occurrence of the external cause; Y99.8 Other external cause status

== ENCOUNTER 2020-04-04 14:20 | Emergency (ER) | payer MEDICARE ==
--- NOTE | 2020-04-04 15:07 | Emergency Department Report ---
Blank Doc - Documentation Documentation: 74-year-old female that presents with recurrent falls with left elbow pains. 1- This initial assessment/diagnostic orders/clinical plan/ treatment(s) is/are subject to change based on pt's health status, clinical progression and re- assessment by fellow clinical providers in the ED. Further treatment and workup at subsequent clinical provers discretion. Patient/guardians urged not to elope from ED as their condition may be serious if not clinically assessed and managed. 2-labs 3-Xrays
--- NOTE | 2020-04-04 15:43 | XRay Report ---
LEFT ELBOW 3 VIEWS INDICATION / CLINICAL INFORMATION: pain s/p fall COMPARISON: 03/02/2020 FINDINGS: BONES / JOINT(S): There is irregularity of the head of the radius may represent fracture. Fat pads ar e mildly displaced. There is degenerative change in the elbow joint which is stable. SOFT TISSUES: No significant abnormality. ADDITIONAL FINDINGS: None. Impression: There is mild displacement of fat pads. There is mild irregularity along the head of the radius which may represent subtle fracture. This may simply represent some osteophyte formation. Degenerative change in the elbow appears stable. Signer Name: Adryan Vidal MD Signed: 04/04/2020 3:39 PM Workstation Name: [id number]
[2020-04-04 15:55] LABS: Basophils % (Auto) 0.7 % (0.0-1.8); Eosinophils # (Auto) 0.3 K/mm3 (0.0-0.4); Eosinophils % (Auto) 4.7 % (0.0-4.3); Hematocrit 32.8 % (30.3-42.9); Hemoglobin 10.9 gm/dl (10.1-14.3); Lymphocytes # (Auto) 2.2 K/mm3 (1.2-5.4); Lymphocytes % (Auto) 32.1 % (13.4-35.0); Mean Corpuscular HGB Conc 33 % (30-34); Mean Corpuscular Volume 92 fl (79-97); Monocytes # (Auto) 0.6 K/mm3 (0.0-0.8); Monocytes % (Auto) 9.4 % (0.0-7.3); Platelet Count 291 K/mm3 (140-440); Red Blood Count 3.58 M/mm3 (3.65-5.03)
[2020-04-04 16:06] LABS: INR 1.07 (0.87-1.13)
[2020-04-04 16:07] LABS: Partial Thromboplastin Time 33.9 Sec. (24.2-36.6)
[2020-04-04 16:14] LABS: Alanine Aminotransferase 7 units/L (7-56); Albumin 3.7 g/dL (3.9-5); Blood Urea Nitrogen 9 mg/dL (7-17); Calcium 8.9 mg/dL (8.4-10.2); Hemolysis Index 1
[2020-04-04 16:17] LABS: BUN/Creatinine Ratio 18
--- NOTE | 2020-04-04 16:45 | Emergency Department Report ---
HPI - General Chief Complaint: Fall Time Seen by Provider: 04/04/20 14:57 - HPI HPI: Room 34 The patient is a 74-year-old female present with a chief complaint of frequent falls. Patient has history of schizophrenia and was brought in by her son and she is unable to care for herself. He states the patient lives alone but he tries to check on her frequently. He states for years the patient has been following but he has noticed an increase in frequency over the past 2 to 3 months. He has brought the patient to the hospital multiple times for these falls. The son states he is unable to to stay at home to care for his mother and maintain his job at the same time. Patient states she is willing to go to a personal residential. Patient complains of soreness in her neck. There has been poor compliance with her psychiatric medication. ED Past Medical Hx - Past Medical History Hx Hypertension: Yes Hx CVA: Yes Hx GERD: Yes Hx Arthritis: Yes Hx Psychiatric Treatment: Yes (schizophrenia) Hx Asthma: Yes Additional medical history: Heart racing, burned with hot oil ij feb 2019 - Surgical History Additional Surgical History: hemmorhoidectomy. tubal ligation. cardiac ablation, skin graft - Family History Family history: no significant - Social History Smoking Status: Never Smoker Substance Use Type: None - Medications Home Medications: Home Medications Medication Instructions Recorded Confirmed Last Taken Type Ziprasidone [Geodon] 20 mg PO DAILY 09/26/14 01/23/20 10/28/15 History Benztropine [Cogentin] 1 tab PO BID 11/01/15 01/23/20 10/28/15 History FLUoxetine HCL [PROzac] 40 mg PO QDAY 10/06/18 01/23/20 Unknown History Ferrous Sulfate [Ferrous Sulfate 324 mg PO DAILY 10/06/18 01/23/20 Unknown History 324 MG] amLODIPine 5 mg PO DAILY 10/06/18 01/23/20 Unknown History Pantoprazole [Protonix TAB] 40 mg PO QDAY #30 tablet 07/04/19 01/23/20 Unknown Rx Ciprofloxacin HCl [Ciprofloxacin 500 mg PO Q12HR #7 tab 01/25/20 Unknown Rx TAB] Naproxen [Naprosyn] 500 mg PO BID #20 tablet 02/21/20 Unknown Rx HYDROcodone/APAP 5-325 [[place] 1 each PO Q6HR PRN #12 tablet 03/02/20 Unknown Rx 5-325 mg TAB] ED Review of Systems ROS: Stated complaint: LEFT ARM PAIN/BODY PAIN Other details as noted in HPI Constitutional: no symptoms reported Eyes: denies: eye pain ENT: denies: throat pain Respiratory: no symptoms reported Cardiovascular: denies: chest pain Endocrine: no symptoms reported Gastrointestinal: denies: abdominal pain Musculoskeletal: arthralgia. denies: back pain Neurological: denies: headache Physical Exam - Physical Exam Vital Signs: Vital Signs 04/04/20 14:31 Temperature 97.9 F Pulse Rate 70 Respiratory 18 Rate Blood Pressure 122/60 O2 Sat by Pulse 96 Oximetry Physical Exam: GENERAL: The patient is well-developed well-nourished female sitting in chair not appearing to be in acute distress. [] HEENT: Normocephalic. Atraumatic. Extraocular motions are intact. Patient has moist mucous membranes. NECK: Supple. Lateral neck pain with range of motion. No axial step-off CHEST/LUNGS: Clear to auscultation. There is no respiratory distress noted. HEART/CARDIOVASCULAR: Regular. There is no tachycardia. There is no gallop rub or murmur. ABDOMEN: Abdomen is soft, nontender. Patient has normal bowel sounds. There is no abdominal distention. SKIN: There is no rash. There is no edema. There is no diaphoresis. NEURO: The patient is awake, alert, and oriented. The patient is cooperative. The patient has no focal neurologic deficits. The patient has normal speech MUSCULOSKELETAL: There is no axial tenderness to palpation. There is no evidence of acute injury. ED Course Vital Signs 04/04/20 14:31 Temperature 97.9 F Pulse Rate 70 Respiratory 18 Rate Blood Pressure 122/60 O2 Sat by Pulse 96 Oximetry - Consultations Consultation #1: 04/04/20 18:57 Case discussed with hospitalist Dr. Walden-he does arrange home hospice for the patient will have hospice nurse come to the patient's home tomorrow. Is discussed this with the patient and family. ED Medical Decision Making - Lab Data Result diagrams: 04/04/20 15:32 04/04/20 15:32 - EKG Data -: EKG Interpreted by Me EKG shows normal: sinus rhythm Rate: bradycardia (51 bpm) - EKG Data When compared to previous EKG there are: previous EKG unavailable Interpretation: other (No ischemic changes seen) - Radiology Data Radiology results: report reviewed (CT head, CT cervical spine, left elbow x- ray), image reviewed (CT head, CT cervical spine, left elbow x-ray) interpreted by me: Left elbow x-ray-no definite acute fracture seen. No dislocation [address] [address] Cat Scan Report Signed Patient: JIMMY ALVAREZ MR#: [id number] : 1945 Acct:[id number] Age/Sex: 74 / F ADM Date: 04/04/20 Loc: ED Attending Dr: Ordering Physician: LAINE DOS SANTOS MD Date of Service: 04/04/20 Procedure(s): CT head/brain wo con Accession Number(s): [id number] cc: LAINE DOS SANTOS MD CT HEAD WITHOUT CONTRAST INDICATION / CLINICAL INFORMATION: Frequent falls. TECHNIQUE: All CT scans at this location are performed using CT dose reduction for ALARA by means of automated exposure control. COMPARISON: CT scan dated 02/21/2020 FINDINGS: HEMORRHAGE: None. EXTRA-AXIAL SPACES: Normal in size and morphology for the patient's age. VENTRICULAR SYSTEM: Normal in size and morphology for the patient's age. CEREBRAL PARENCHYMA: Encephalomalacia in the right frontal lobe appears unchanged. MIDLINE SHIFT / HERNIATION: None. CEREBELLUM / BRAINSTEM: No significant abnormality. ORBITS: Normal as visualized. SOFT TISSUES: No significant abnormality. SKULL: No significant abnormality. PARANASAL SINUSES / MASTOID AIR CELLS: Normal as visualized. ADDITIONAL FINDINGS: None. IMPRESSION: 1. No acute intracranial abnormality. No significant change. Signer Name: Adryan Vidal MD Signed: 04/04/2020 5:51 PM Workstation Name: [id number] Transcribed By: SS Dictated By: Adryan Vidal MD Electronically Authenticated By: Adryan Vidal MD Signed Date/Time: 04/04/201750 DD/ 45 TD/TT: [address] [address] Cat Scan Report Signed Patient: JIMMY ALVAREZ MR#: [id number] : 1945 Acct:[id number] Age/Sex: 74 / F ADM Date: 04/04/20 Loc: ED Attending Dr: Ordering Physician: LAINE DOS SANTOS MD Date of Service: 04/04/20 Procedure(s): CT cervical spine wo con Accession Number(s): [id number] cc: LAINE DOS SANTOS MD CT CERVICAL SPINE WITHOUT CONTRAST INDICATION / CLINICAL INFORMATION: Frequent falls, neck pain. TECHNIQUE: Axial CT images were obtained through the cervical spine. Sagittal and coronal reformatted images were produced. All CT scans at this location are performed using CT dose reduction for ALARA by means of automated exposure control. COMPARISON: CT cervical spine 02/21/2020 and 08/30/2018 FINDINGS: ALIGNMENT: Grade 1 spondylolisthesis is observed at the C4-5 level. Loss of the normal cervical lordosis is noted. No additional abnormalities of alignment are identified. VERTEBRAE: There is no indication of fracture or bone destruction. DISC SPACES: Loss of disc height is noted at the C4-5 and C5-6 levels. Disc height is fairly well maintained elsewhere. INDIVIDUAL LEVEL ANALYSIS: C2-3: Right worse than left facet arthropathy is noted. Central spinal canal and neuroforamina are adequately maintained. C3-4: Right worse than left facet arthropathy is noted. Central spinal canal and neuroforamina are adequately maintained. Enlargement of the right transversalis foramina is noted likely secondary to tortuosity of the right vertebral artery. This is unchanged. C4-5: Advanced bilateral facet arthropathy is noted. Grade 1 spondylolisthesis is evident. Central spinal canal and neuroforamina are adequately C5-6: Right-sided facet arthropathy is noted. Central spinal canal and neuroforamina are adequate in size. Mild anterior protrusion is noted. C6-7: A significant abnormality. C7-T1:No abnormality. CRANIOCERVICAL JUNCTION:No significant abnormality. SPINAL CANAL: Central spinal canal is adequately maintained throughout. PARASPINAL SOFT TISSUES: No significant abnormality. LUNG APICES: Again noted is a 11 x 7 mm right upper lobe lung nodule not significantly changed in comparison to previous studies dating back through 08/30/2018. IMPRESSION: 1. No indication of fracture or traumatic subluxation. 2. Right worse than left facet arthropathy throughout the cervical region. 3. No significant interval change in the CT appearance of the cervical spine. 4. 11 x 7 mm right upper lobe lung nodule unchanged since 08/30/2018. Signer Name: Tony Pepe MD Signed: 04/04/2020 6:02 PM Workstation Name: [id number] Transcribed By: Dictated By: Tony Pepe MD Electronically Authenticated By: Tony Pepe MD Signed Date/Time: 04/04/20 1802 DD/ 1748 TD/TT: [facility] [address] [place] [address] XRay Report Signed Patient: JIMMY ALVAREZ MR#: [id number] : 1945 Acct:[id number] Age/Sex: 74 / F ADM Date: 04/04/20 Loc: ED Atten [facility] Dr: Ordering Physician: GREG PLASCENCIA NP Date of Service: 04/04/20 Procedure(s): XR elbow 3+V LT Accession Number(s): [id number] cc: GREG PLASCENCIA NP Fluoro Time In Minutes: LEFT ELBOW 3 VIEWS INDICATION / CLINICAL INFORMATION: pain s/p fall COMPARISON: 03/02/2020 FINDINGS: BONES / JOINT(S): There is irregularity of the head of the radius may represent fracture. Fat pads are mildly displaced. There is degenerative change in the elbow joint which is stable. SOFT TISSUES: No significant abnormality. ADDITIONAL FINDINGS: None. Impression: There is mild displacement of fat pads. There is mild irregularity along the head of the radius which may represent subtle fracture. This may simply represent some osteophyte formation. Degenerative change in the elbow appears stable. Signer Name: Adryan Vidal MD Signed: 04/04/2020 3:39 PM Workstation Name: [id number] Transcribed By: SS Dictated By: Adryan Vidal MD Electronically Authenticated By: Adryan Vidal MD Signed Date/Time: 04/04/20 1539 DD/ 1535 TD/TT: - Differential Diagnosis Frequent falls Critical care attestation.: If time is entered above; I have spent that time in minutes in the direct care of this critically ill patient, excluding procedure time. ED Disposition Clinical Impression: Frequent falls Disposition: DC-01 TO HOME OR SELFCARE Is pt being admited?: No Does the pt Need Aspirin: No Condition: Stable Instructions: Fall Prevention in the Home, Adult, [id number] Additional Instructions: Return to the emergency department should you develop worsening symptoms, inability to tolerate food or liquids, high fever or any other concerns Referrals: PRIMARY CARE, [Primary Care Provider] - 3-5 Days Time of Disposition: 18:58
--- NOTE | 2020-04-04 17:55 | Cat Scan Report ---
CT HEAD WITHOUT CONTRAST INDICATION / CLINICAL INFORMATION: Frequent falls. TECHNIQUE: All CT scans at this location are performed using CT dose reduction for ALARA by means of automated exposure control. COMPARISON: CT scan dated 02/21/2020 FINDINGS: HEMORRHAGE: None. EXTRA-AXIAL SPACES: Normal in size and morphology for the patient's age. VENTRICULAR SYSTEM: Normal in size and morphology for the patient's age. CEREBRAL PARENCHYMA: Encephalomalacia in the right frontal lobe appears unchanged. MIDLINE SHIFT / HERNIATION: None. CEREBELLUM / BRAINSTEM: No significant abnormality. ORBITS: Normal as visualized. SOFT TISSUES: No significant abnormality. SKULL: No significant abnormality. PARANASAL SINUSES / MASTOID AIR CELLS: Normal as visualized. ADDITIONAL FINDINGS: None. IMPRESSION: 1. No acute intracranial abnormality. No significant change. Signer Name: Adryan Vidal MD Signed: 04/04/2020 5:51 PM Workstation Name: [id number]
--- NOTE | 2020-04-04 18:06 | Cat Scan Report ---
CT CERVICAL SPINE WITHOUT CONTRAST INDICATION / CLINICAL INFORMATION: Frequent falls, neck pain. TECHNIQUE: Axial CT images were obtained through the cervical spine. Sagittal and coronal reformatted images wer e produced. All CT scans at this location are performed using CT dose reduction for ALARA by means of automated exposure control. COMPARISON: CT cervical spine 02/21/2020 and 08/30/2018 FINDINGS: ALIGNMENT: Grade 1 spondylolisthesis is observed at the C4-5 level. Loss of the normal cervical lordo sis is noted. No additional abnormalities of alignment are identified. VERTEBRAE: There is no indication of fracture or bone destruction. DISC SPACES: Loss of disc height is noted at the C4-5 and C5-6 levels. Disc height is fairly well jolene ntained elsewhere. INDIVIDUAL LEVEL ANALYSIS: C2-3: Right worse than left facet arthropathy is noted. Central spinal canal and neuroforamina are ad equately maintained. C3-4: Right worse than left facet arthropathy is noted. Central spinal canal and neuroforamina are ad equately maintained. Enlargement of the right transversalis foramina is noted likely secondary to tor tuosity of the right vertebral artery. This is unchanged. C4-5: Advanced bilateral facet arthropathy is noted. Grade 1 spondylolisthesis is evident. Central sp inal canal and neuroforamina are adequately C5-6: Right-sided facet arthropathy is noted. Central spinal canal and neuroforamina are adequate in size. Mild anterior protrusion is noted. C6-7: A significant abnormality. C7-T1:No abnormality. CRANIOCERVICAL JUNCTION:No significant abnormality. SPINAL CANAL: Central spinal canal is adequately maintained throughout. PARASPINAL SOFT TISSUES: No significant abnormality. LUNG APICES: Again noted is a 11 x 7 mm right upper lobe lung nodule not significantly changed in [facility] to previous studies dating back through 08/30/2018. IMPRESSION: 1. No indication of fracture or traumatic subluxation. 2. Right worse than left facet arthropathy throughout the cervical region. 3. No significant interval change in the CT appearance of the cervical spine. 4. 11 x 7 mm right upper lobe lung nodule unchanged since 08/30/2018. Signer Name: Tony Pepe MD Signed: 04/04/2020 6:02 PM Workstation Name: [id number]
--- NOTE | 2020-04-04 19:02 | History and Physical Report ---
History of Present Illness Chief complaint: She is confused, and she keeps falling History of present illness: 74 YO Female with Vascular Dementia, Cerebral Atherosclerosis, Malnutrition, GERD, HTN, CVA, OA, Schizophrenia presents to ED for evaluation. Patient is confused and agitated at the time of my evaluation is unable to provide detailed history. Patient son is at bedside during exam and interview and provides history. As per son the patient has experienced progressive muscular weakness, increased confusion over the past 3 months with persistently worsening symptoms over the same timeframe. Patient currently requires 6/6 assistance with activities of daily living, patient has a palliative performance score of 40%. Patient is bed to chair and has experienced multiple falls over the past 2 months and requires standby assistance with transfers. Patient has increased confusion during evening and bedtime hours. No reports of fever, chills, chest pain, palpitation, productive cough, skin rash, recent ill contacts, or known exposure to COVID-19. Prior admission on 01/23/2020 reviewed. All medication listed at time of admission has been reconciled. Advanced care planning conducted in ED. Past History Past Medical History: arthritis, GERD, hyperlipidemia, stroke Past Surgical History: Other (Cardiac ablation, tubal ligation, hemorrhoidectomy, skin graft) Social history: , lives with family. denies: smoking, alcohol abuse, prescription drug abuse Family history: diabetes, hypertension Medications and Allergies Allergies Allergy/AdvReac Type Severity Reaction Status Date / Time No Known Allergies Allergy Verified 04/04/20 14:31 Home Medications Medication Instructions Recorded Confirmed Last Taken Type Ziprasidone [Geodon] 20 mg PO DAILY 09/26/14 01/23/20 10/28/15 History Benztropine [Cogentin] 1 tab PO BID 11/01/15 01/23/20 10/28/15 History FLUoxetine HCL [PROzac] 40 mg PO QDAY 10/06/18 01/23/20 Unknown History Ferrous Sulfate [Ferrous Sulfate 324 mg PO DAILY 10/06/18 01/23/20 Unknown History 324 MG] amLODIPine 5 mg PO DAILY 10/06/18 01/23/20 Unknown History Pantoprazole [Protonix TAB] 40 mg PO QDAY #30 tablet 07/04/19 01/23/20 Unknown Rx Ciprofloxacin HCl [Ciprofloxacin 500 mg PO Q12HR #7 tab 01/25/20 Unknown Rx TAB] Naproxen [Naprosyn] 500 mg PO BID #20 tablet 02/21/20 Unknown Rx HYDROcodone/APAP 5-325 [[place] 1 each PO Q6HR PRN #12 tablet 03/02/20 Unknown Rx 5-325 mg TAB] Active Meds: Active Medications Amlodipine Besylate (Amlodipine 5 Mg Tab) 5 mg PO DAILY TEN Benztropine Mesylate (Benztropine 2 Mg Tab) 1 mg PO BID TEN Fluoxetine HCl (Fluoxetine 20 Mg Cap) 40 mg PO QDAY TEN Naproxen (Naproxen 500 Mg Tab) 500 mg PO BID TEN Pantoprazole Sodium (Pantoprazole 40 Mg Tab) 40 mg PO QDAY TEN Ziprasidone (Ziprasidone 20 Mg Cap) 20 mg PO DAILY TEN Review of Systems ROS unobtainable: due to mental status Exam - Constitutional Vitals: Temp Pulse Resp BP Pulse Ox 97.9 F 50 L 18 124/101 100 04/04/20 14:31 04/04/20 16:57 04/04/20 16:57 04/04/20 16:57 04/04/20 16:57 General appearance: Present: mild distress - EENT Eyes: Present: PERRL ENT: clear oral mucosa, hearing decreased - Neck Neck: Present: supple, normal ROM - Respiratory Respiratory effort: normal Respiratory: bilateral: CTA - Cardiovascular Heart Sounds: Present: S1 & S2. Absent: rub, click - Extremities Extremities: pulses symmetrical, No edema Peripheral Pulses: within normal limits - Abdominal General gastrointestinal: Present: soft, non-tender, non-distended, normal bowel sounds Female genitourinary: Present: normal - Integumentary Integumentary: Present: clear, dry - Musculoskeletal Musculoskeletal: generalized weakness - Psychiatric Psychiatric: no intact judgment & insight, no memory intact, agitated - Neurologic Neurologic: CNII-XII intact, moves all extremities, no gait normal HEART Score - HEART Score Troponin: Troponin T < 0.010 ng/mL (0.00-0.029) 04/04/20 15:32 Results - Labs CBC & Chem 7: 04/04/20 15:32 04/04/20 15:32 Labs: Abnormal lab results 04/04/20 04/04/20 Range/Units 15:32 15:32 RBC 3.58 L (3.65-5.03) M/mm3 RDW 12.0 L (13.2-15.2) % Sebastian % (Auto) 9.4 H (0.0-7.3) % Eos % (Auto) 4.7 H (0.0-4.3) % Creatinine 0.5 L (0.6-1.2) mg/dL Albumin 3.7 L (3.9-5) g/dL Assessment and Plan - Patient Problems (1) Vascular dementia with behavioral disturbance Current Visit: Yes Status: Acute Plan to address problem: Verbal prompting, verbal redirection, benzodiazepine therapy as clinically indicated. (2) Cerebral atherosclerosis Current Visit: Yes Status: Acute Plan to address problem: Risk factor reduction, antiplatelet therapy as clinically indicated, supportive care. (3) Schizophrenia Current Visit: Yes Status: Acute Qualifiers: Schizophrenia type: unspecified Qualified Code(s): F20.9 - Schizophrenia, unspecified Plan to address problem: Continue medical management, supportive care. (4) Malnutrition Current Visit: Yes Status: Acute Qualifiers: Malnutrition type: protein-calorie malnutrition Plan to address problem: Increase protein intake, dietary supplementation as tolerated. (5) GERD (gastroesophageal reflux disease) Current Visit: Yes Status: Acute Qualifiers: Esophagitis presence: without esophagitis Qualified Code(s): K21.9 - Gastro-esophageal reflux disease without esophagitis Plan to address problem: PPI therapy, supportive care. (6) Osteoarthritis Current Visit: Yes Status: Acute Plan to address problem: Pain control, supportive care. (7) Debility Current Visit: Yes Status: Acute Plan to address problem: Supportive care, fall precautions. (8) Frequent falls Current Visit: Yes Status: Acute Plan to address problem: Fall precautions, bed alarm. (9) Advance care planning Current Visit: Yes Status: Acute Plan to address problem: Disease education conducted, prognosis discussed, patient is full code. Care plan/options discussed. Patient son requests home hospice care. Home hospice appointment arranged. Patient son declines assisted living facility/assisted facility placement at this time due to patient's desire to remain in the home setting and receive supportive care without returning to the hospital for intervention. +30 minutes.
[2020-04-04 19:12] VITALS: BP 132/83
[2020-04-04] MEDS ORDERED: BENZTROPINE 2 MG TAB PO SCH (22:00)
[2020-04-04] MEDS ORDERED: NAPROXEN 500 MG TAB PO SCH (22:00)
[2020-04-05] MEDS ORDERED: PANTOPRAZOLE 40 MG TAB PO SCH (10:00)
[2020-04-05] MEDS ORDERED: NON-FORMULARY EACH (Fluoxetine Hcl [Prozac] 40 MG Capsule) PO SCH (10:00)
[2020-04-05] MEDS ORDERED: FLUoxetine 20 MG CAP PO SCH (10:00)
[2020-04-05] MEDS ORDERED: ZIPRASIDONE 20 MG CAP PO SCH (10:00)
[2020-04-05] MEDS ORDERED: amLODIPine 5 MG TAB PO SCH (10:00)
== END 2020-04-04 20:06 | disposition home or self-care (01) ==
LOC: ED 14:20
DX: M54.2 Cervicalgia (principal); R51.9 Headache, unspecified; Z91.81 History of falling; I10 Essential (primary) hypertension; K21.9 Gastro-esophageal reflux disease without esophagitis; M19.91 Primary osteoarthritis, unspecified site; F20.9 Schizophrenia, unspecified; J45.909 Unspecified asthma, uncomplicated; Z90.89 Acquired absence of other organs; Z98.890 Other specified postprocedural states; Z79.2 Long term (current) use of antibiotics; Z79.899 Other long term (current) drug therapy
CPT/HCPCS: 36415; 70450; 72125; 80053; 84484; 85025; 85610; 85730; 93005

== ENCOUNTER 2020-06-22 15:17 | Inpatient (IN) | payer MEDICARE ==
--- NOTE | 2020-06-22 17:28 | Event Note ---
ED Screening Note Date of service: 06/22/20 Time: 17:24 ED Screening Note: 74 y/o female pt presents to ED w/ son w/ reported complaints of generalized weakness progressively worsening for 1 week. Son states patient fell last week. He did not witness the fall. EMS came to the house but did not transport patient to the emergency department. Patient remembers falling but cannot recall if she struck her head. Son is unsure whether or not patient is on anticoagulation. She is complaining of pain to her neck, left upper arm, and left shoulder. Patient has been prescribed morphine for chronic pain and son states she has been asking for pain medication more frequently than usual. He became concerned today because she has become progressively more difficult to arouse. Somnolent in triage; arousable to verbal stimuli. General: No acute distress. Neck: Supple. Full range of motion intact. Posterior cervical spine tenderness. Cardiovascular: Normal peripheral perfusion. Pulmonary: No respiratory distress. Patient is speaking normally without use of accessory muscles. Skin: No apparent rashes or lesions. Neurological: Oriented to person, place, time. Musculoskeletal: Moves all four extremities spontaneously with normal range of motion. Left shoulder/proximal left humerus tenderness. Psych: Cooperative. Appropriate mood and affect. I have greeted and performed a focused rapid initial assessment of this patient. A comprehensive ED assessment and evaluation of the patient, analysis of all test results, and completion of the medical decision-making process will be conducted by additional ED providers. This initial assessment/diagnostic orders/clinical plan/treatment(s) is/are subject to change based on patients health status, clinical progression and re-assessment. Further treatment and workup at subsequent clinical provider's discretion. Patient/guardian urged not to elope from the ED as their condition may be serious if not clinically assessed and managed.
[2020-06-22 18:12] LABS: Basophils % (Auto) 0.2 % (0.0-1.8); Eosinophils # (Auto) 0.4 K/mm3 (0.0-0.4); Eosinophils % (Auto) 7.2 % (0.0-4.3); Hematocrit 31.7 % (30.3-42.9); Hemoglobin 10.3 gm/dl (10.1-14.3); Lymphocytes # (Auto) 2.3 K/mm3 (1.2-5.4); Lymphocytes % (Auto) 37.8 % (13.4-35.0); Mean Corpuscular HGB Conc 33 % (30-34); Mean Corpuscular Volume 94 fl (79-97); Monocytes # (Auto) 0.5 K/mm3 (0.0-0.8); Monocytes % (Auto) 8.5 % (0.0-7.3); Platelet Count 292 K/mm3 (140-440); Red Blood Count 3.38 M/mm3 (3.65-5.03); Red Cell Distribution Width 12.9 % (13.2-15.2)
[2020-06-22 18:21] LABS: INR 1.14 (0.87-1.13)
[2020-06-22 18:22] LABS: Partial Thromboplastin Time 31.2 Sec. (24.2-36.6)
[2020-06-22 18:32] LABS: Alanine Aminotransferase 11 units/L (7-56); Albumin 3.6 g/dL (3.9-5); Blood Urea Nitrogen 13 mg/dL (7-17); Calcium 9.1 mg/dL (8.4-10.2); Hemolysis Index 16
[2020-06-22 18:33] LABS: BUN/Creatinine Ratio 19
--- NOTE | 2020-06-22 18:36 | Cat Scan Report ---
CT cervical spine wo con INDICATION / CLINICAL INFORMATION: 74 years Female; fell one week ago; weakness. TECHNIQUE: Axial CT images of the cervical spine were obtained. Sagittal and coronal reformatted images were pr oduced. All CT scans at this location are performed using CT dose reduction for ALARA by means of aut omated exposure control. COMPARISON: The study is compared to the previous CT of 04/04/2020. FINDINGS: POST-SURGICAL CHANGES: None. ALIGNMENT: There is mild curvature the cervical spine, convex toward the left. There is slight dale listhesis at C4-5 which appears to be on a degenerative basis given the degree of facet joint arthrop athy. Similar findings were seen on the prior study. VERTEBRAE: There is disc space narrowing with notable endplate cystic changes at C5-C6, greater on th e right. There is no clear CT evidence of interval developing acute fracture. INTRAVERTEBRAL DISCS: There is continued right facet joint hypertrophy at C3-4 with moderate to marke d right foraminal narrowing at. There is also marked right and moderate left foraminal narrowing at C 3-4. The spondylosis effaces the ventral subarachnoid space at. There is milder spondylosis at C5-6 also effacement of the ventral subarachnoid space. There is moder ate right foraminal narrowing. PARASPINAL SOFT TISSUES: No prevertebral soft tissue fluid collections are identified at. ADDITIONAL FINDINGS: None. IMPRESSION: 1. There is no CT evidence of acute fracture involving the cervical spine. 2. There are continued multilevel degenerative changes as detailed above. Signer Name: Benji Li MD Signed: 06/22/2020 6:32 PM Workstation Name: [id number]
--- NOTE | 2020-06-22 18:36 | XRay Report ---
LEFT SHOULDER 3 VIEWS INDICATION: Left shoulder pain after fall one week ago.. COMPARISON: No relevant prior imaging study available. FINDINGS: No acute, displaced fracture or dislocation is seen. Mild to moderate degenerative changes are noted at the left shoulder. IMPRESSION: 1. No displaced fracture is seen. CHEST PA AND LATERAL VIEWS INDICATION: generalized weakness. COMPARISON: None. FINDINGS: Support devices: None. Heart: Borderline enlarged. Lungs/Pleura: Streaky opacities in the left lung base may be due to scarring versus atelectasis. Lung s otherwise clear. No pleural abnormality. IMPRESSION: 1. No acute findings. Signer Name: Dejon Hdez MD Signed: 06/22/2020 6:31 PM Workstation Name: [id number]
--- NOTE | 2020-06-22 18:41 | Cat Scan Report ---
CT head/brain wo con INDICATION / CLINICAL INFORMATION: 74 years Female; fell one week ago; weakness. TECHNIQUE: Routine CT head without contrast. All CT scans at this location are performed using CT dos e reduction for ALARA by means of automated exposure control. COMPARISON: The study is compared to the previous CT of 04/04/2020. FINDINGS: BRAIN / INTRACRANIAL CONTENTS: There is encephalomalacia involving inferior right frontal lobe which may be related to previous trauma given the location. Similar findings were seen on the prior exam. M ore focal findings are seen superiorly within the right frontal lobe with juanita hole which are likely related to previous shunt placement. The ventricular system is appropriate in size and configuration without interval change. There are subtle foci of calcification within the basal ganglia. There is no CT evidence of acute int racranial hemorrhage or significant mass effect. ORBITS: No significant abnormality of visualized orbits. SINUSES / MASTOIDS: No significant abnormality in the visualized paranasal sinuses or mastoid air lorene ls. CRANIOCERVICAL JUNCTION: No significant abnormality. ADDITIONAL FINDINGS: None. IMPRESSION: 1. There is continued at areas of encephalomalacia involving right frontal lobe without evidence of a cute intracranial hemorrhage or significant overall change from 04/04/2020. Signer Name: Benji Li MD Signed: 06/22/2020 6:36 PM Workstation Name: [id number]
[2020-06-22] MEDS ORDERED: ATROPINE 1 MG/ML VIAL IV ONE (21:24)
--- NOTE | 2020-06-22 21:29 | Emergency Department Report ---
ED Altered Mental Status HPI - General Chief Complaint: Altered Mental Status Stated Complaint: PAIN FROM FALL Time Seen by Provider: 06/22/20 21:13 Source: patient Mode of arrival: Ambulatory Limitations: Altered Mental Status - History of Present Illness Initial Comments: Patient is 74 years old female with history of dementia, hypertension and histor y of CVA. Patient brought to the emergency room by her son for evaluation of frequent fall and altered mental status for approximately 1 week so far. Patient stated that patient lives by herself but he checked on her every now and then. Son at bedside and giving most of the history. He stated that she is very confused and sometimes he will take like extra medication. Patient is obtunded however responding to voice. Patient denied any chest pain or shortness of breath. Patient found to have a heart rate of 39 bpm. Patient given atropine 1 mg IV. MD Complaint: altered mental status, decreased responsiveness, weakness -: days(s) (7) Severity: moderate - Related Data Home Medications Medication Instructions Recorded Confirmed Last Taken Ziprasidone [Geodon] 20 mg PO DAILY 09/26/14 01/23/20 10/28/15 Benztropine [Cogentin] 1 tab PO BID 11/01/15 01/23/20 10/28/15 FLUoxetine HCL [PROzac] 40 mg PO QDAY 10/06/18 01/23/20 Unknown Ferrous Sulfate [Ferrous Sulfate 324 mg PO DAILY 10/06/18 01/23/20 Unknown 324 MG] amLODIPine 5 mg PO DAILY 10/06/18 01/23/20 Unknown Previous Rx's Medication Instructions Recorded Last Taken Type Pantoprazole [Protonix TAB] 40 mg PO QDAY #30 tablet 07/04/19 Unknown Rx Ciprofloxacin HCl [Ciprofloxacin 500 mg PO Q12HR #7 tab 01/25/20 Unknown Rx TAB] Naproxen [Naprosyn] 500 mg PO BID #20 tablet 02/21/20 Unknown Rx HYDROcodone/APAP 5-325 [[place] 1 each PO Q6HR PRN #12 tablet 03/02/20 Unknown Rx 5-325 mg TAB] LORazepam [Ativan] 1 mg PO QHS #30 tab 04/04/20 Unknown Rx Morphine Concentrate [MORPHINE 10 mg PO QHS #30 ml 04/04/20 Unknown Rx Conc 20 MG/ML ORAL LIQ] Allergies Allergy/AdvReac Type Severity Reaction Status Date / Time No Known Allergies Allergy Verified 06/22/20 17:20 ED Review of Systems ROS: Stated complaint: PAIN FROM FALL Other details as noted in HPI Comment: All other systems reviewed and negative Constitutional: denies: chills, fever Respiratory: denies: cough, shortness of breath Cardiovascular: denies: chest pain Gastrointestinal: denies: abdominal pain, nausea Musculoskeletal: denies: back pain Neurological: weakness, confusion. denies: headache, numbness ED Past Medical Hx - Past Medical History Hx Hypertension: Yes Hx CVA: Yes Hx Heart Attack/AMI: No Hx GERD: Yes Hx Liver Disease: No Hx Renal Disease: No Hx Sickle Cell Disease: No Hx Arthritis: Yes Hx Seizures: No Hx Psychiatric Treatment: Yes (schizophrenia) Hx Asthma: Yes Hx COPD: No Hx HIV: No Additional medical history: Heart racing, burned with hot oil ij feb 2019 - Surgical History Hx Pacemaker: No Hx Internal Defibrillator: No Additional Surgical History: hemmorhoidectomy. tubal ligation. cardiac ablation, skin graft - Social History Smoking Status: Never Smoker Substance Use Type: None - Medications Home Medications: Home Medications Medication Instructions Recorded Confirmed Last Taken Type Ziprasidone [Geodon] 20 mg PO DAILY 09/26/14 01/23/20 10/28/15 History Benztropine [Cogentin] 1 tab PO BID 11/01/15 01/23/20 10/28/15 History FLUoxetine HCL [PROzac] 40 mg PO QDAY 10/06/18 01/23/20 Unknown History Ferrous Sulfate [Ferrous Sulfate 324 mg PO DAILY 10/06/18 01/23/20 Unknown History 324 MG] amLODIPine 5 mg PO DAILY 10/06/18 01/23/20 Unknown History Pantoprazole [Protonix TAB] 40 mg PO QDAY #30 tablet 07/04/19 01/23/20 Unknown Rx Ciprofloxacin HCl [Ciprofloxacin 500 mg PO Q12HR #7 tab 01/25/20 Unknown Rx TAB] Naproxen [Naprosyn] 500 mg PO BID #20 tablet 02/21/20 Unknown Rx HYDROcodone/APAP 5-325 [[place] 1 each PO Q6HR PRN #12 tablet 03/02/20 Unknown Rx 5-325 mg TAB] LORazepam [Ativan] 1 mg PO QHS #30 tab 04/04/20 Unknown Rx Morphine Concentrate [MORPHINE 10 mg PO QHS #30 ml 04/04/20 Unknown Rx Conc 20 MG/ML ORAL LIQ] ED Physical Exam - General Limitations: Altered Mental Status General appearance: in no apparent distress, obtunded - Head Head exam: Present: atraumatic, normocephalic, normal inspection - Eye Eye exam: Present: normal appearance - ENT ENT exam: Present: mucous membranes moist - Neck Neck exam: Present: normal inspection, full ROM. Absent: tenderness, meningismus - Respiratory Respiratory exam: Present: normal lung sounds bilaterally - Cardiovascular Cardiovascular Exam: Present: bradycardia - GI/Abdominal GI/Abdominal exam: Present: soft, normal bowel sounds. Absent: distended, tenderness, guarding, rebound, rigid, organomegaly, mass, bruit, pulsatile mass, hernia - Extremities Exam Extremities exam: Present: normal inspection, full ROM, normal capillary refill. Absent: calf tenderness - Back Exam Back exam: Present: normal inspection, full ROM. Absent: CVA tenderness (R), CVA tenderness (L) - Neurological Exam Neurological exam: Present: altered, CN II-XII intact. Absent: motor sensory deficit - Psychiatric Psychiatric exam: Present: flat affect - Skin Skin exam: Present: warm, dry, intact, normal color ED Course Vital Signs 06/22/20 06/22/20 06/22/20 17:15 21:40 21:46 Temperature 98.3 F Pulse Rate 53 L 43 L Respiratory 16 14 11 L Rate Blood Pressure 123/61 180/77 O2 Sat by Pulse 98 98 Oximetry 06/22/20 22:00 Temperature Pulse Rate 68 Respiratory 11 L Rate Blood Pressure 180/77 O2 Sat by Pulse 99 Oximetry - Consultations Consultation #1: 06/22/20 22:08 I discussed the patient with Dr. Olivia Miner, cardiology on-call. She advised to admit to telemetry and will follow up on the patient. 06/22/20 22:08 - Lab Data Result diagrams: 06/22/20 17:46 06/22/20 17:46 Lab Results 06/22/20 06/22/20 06/22/20 Range/Units 17:46 17:46 17:46 WBC 6.1 (4.5-11.0) K/mm3 RBC 3.38 L (3.65-5.03) M/mm3 Hgb 10.3 (10.1-14.3) gm/dl Hct 31.7 (30.3-42.9) % MCV 94 (79-97) fl MCH 31 (28-32) pg MCHC 33 (30-34) % RDW 12.9 L (13.2-15.2) % Plt Count 292 (140-440) K/mm3 Lymph % (Auto) 37.8 H (13.4-35.0) % [place] % (Auto) 8.5 H (0.0-7.3) % Eos % (Auto) 7.2 H (0.0-4.3) % Baso % (Auto) 0.2 (0.0-1.8) % Lymph # (Auto) 2.3 (1.2-5.4) K/mm3 [place] # (Auto) 0.5 (0.0-0.8) K/mm3 Eos # (Auto) 0.4 (0.0-0.4) K/mm3 Baso # (Auto) 0.0 (0.0-0.1) K/mm3 Seg Neutrophils % 46.3 (40.0-70.0) % Seg Neutrophils # 2.8 (1.8-7.7) K/mm3 PT 14.4 (12.2-14.9) Sec. INR 1.14 H (0.87-1.13) APTT 31.2 (24.2-36.6) Sec. Sodium 138 (137-145) mmol/L Potassium 3.8 (3.6-5.0) mmol/L Chloride 101.6 (98-107) mmol/L Carbon Dioxide 28 (22-30) mmol/L Anion Gap 12 mmol/L BUN 13 (7-17) mg/dL Creatinine 0.7 (0.6-1.2) mg/dL Estimated GFR > 60 ml/min BUN/Creatinine Ratio 19 % Glucose 73 (65-100) mg/dL Calcium 9.1 (8.4-10.2) mg/dL Magnesium 1.50 L (1.7-2.3) mg/dL Total Bilirubin 0.60 (0.1-1.2) mg/dL AST 22 (5-40) units/L ALT 11 (7-56) units/L Alkaline Phosphatase 86 (35-129) units/L Total Creatine Kinase 172 H (30-135) units/L Troponin T < 0.010 (0.00-0.029) ng/mL Total Protein 7.5 (6.3-8.2) g/dL Albumin 3.6 L (3.9-5) g/dL Albumin/Globulin Ratio 0.9 % TSH (0.270-4.200) mlU/mL 06/22/20 06/22/20 Range/Units 17:46 19:57 WBC (4.5-11.0) K/mm3 RBC (3.65-5.03) M/mm3 Hgb (10.1-14.3) gm/dl Hct (30.3-42.9) % MCV (79-97) fl MCH (28-32) pg MCHC (30-34) % RDW (13.2-15.2) % Plt Count (140-440) K/mm3 Lymph % (Auto) (13.4-35.0) % [place] % (Auto) (0.0-7.3) % Eos % (Auto) (0.0-4.3) % Baso % (Auto) (0.0-1.8) % Lymph # (Auto) (1.2-5.4) K/mm3 [place] # (Auto) (0.0-0.8) K/mm3 Eos # (Auto) (0.0-0.4) K/mm3 Baso # (Auto) (0.0-0.1) K/mm3 Seg Neutrophils % (40.0-70.0) % Seg Neutrophils # (1.8-7.7) K/mm3 PT (12.2-14.9) Sec. INR (0.87-1.13) APTT (24.2-36.6) Sec. Sodium (137-145) mmol/L Potassium (3.6-5.0) mmol/L Chloride (98-107) mmol/L Carbon Dioxide (22-30) mmol/L Anion Gap mmol/L BUN (7-17) mg/dL Creatinine (0.6-1.2) mg/dL Estimated GFR ml/min BUN/Creatinine Ratio % Glucose (65-100) mg/dL Calcium (8.4-10.2) mg/dL Magnesium (1.7-2.3) mg/dL Total Bilirubin (0.1-1.2) mg/dL AST (5-40) units/L ALT (7-56) units/L Alkaline Phosphatase (35-129) units/L Total Creatine Kinase (30-135) units/L Troponin T < 0.010 (0.00-0.029) ng/mL Total Protein (6.3-8.2) g/dL Albumin (3.9-5) g/dL Albumin/Globulin Ratio % TSH 0.710 (0.270-4.200) mlU/mL - EKG Data -: EKG Interpreted by Me EKG shows normal: sinus rhythm Rate: bradycardia 06/22/20 21:58 Sinus bradycardia with a rate of 39 beats per minutes. - Radiology Data Radiology results: report reviewed - Medical Decision Making Patient is 74 years old female with history of dementia, hypertension and history of CVA. Patient brought to the emergency room by her son for evaluation of frequent fall and altered mental status for approximately 1 week so far. Patient stated that patient lives by herself but he checked on her every now and then. Son at bedside and giving most of the history. He stated that she is ve ry confused and sometimes he will take like extra medication. Patient is obtunded however responding to voice. Patient denied any chest pain or shortness of breath. Patient found to have a heart rate of 39 bpm. Patient given atropine 1 mg IV. Atropine was called because patient blood pressure went up to 70 beats per minutes. Labs reviewed and is unremarkable including a negative troponin x2. CT brain, CT cervical spine is unremarkable for acute finding. Chest x-ray is negative for acute finding. I discussed the patient with Dr. Whitfield, He agreed to admit the patient to medical service for further management. Critical Care Time: Yes Critical care time in (mins) excluding proc time.: 30 Critical care attestation.: If time is entered above; I have spent that time in minutes in the direct care of this critically ill patient, excluding procedure time. ED Disposition Clinical Impression: Symptomatic bradycardia, Altered mental status Disposition: -09 OP ADMIT IP TO THIS HOSP Is pt being admited?: Yes Condition: Stable Referrals: JOHNATHON DAVE MD [Primary Care Provider] - 3-5 Days
[2020-06-22] MEDS ORDERED: ACETAMINOPHEN 325 MG TAB PO PRN (22:30)
[2020-06-22] MEDS ORDERED: ONDANSETRON 4 MG/2 ML INJ IV PRN (22:30)
[2020-06-22] MEDS ORDERED: MAGNESIUM HYDROXIDE (MOM) ORAL LIQD UDC PO PRN (22:30)
--- NOTE | 2020-06-22 22:40 | History and Physical Report ---
History of Present Illness Date of examination: 06/22/20 Date of admission: 06/22/2020 Chief complaint: Altered Mental Status History of present illness: 74-year-old female with known history of dementia, hypertension and CVA in the past presents to the emergency room accompanied by son for evaluation of frequent falls and changes in mental status. This has been ongoing for about a week. According to son patient is known to take extra doses of her medications at home. Most of the history was gotten from the son who was by the bedside as patient could not give any good history. She is said to live alone at home. Upon arrival in the emergency room patient was found to be obtunded and she had sinus bradycardia on the EKG. Work-up in the emergency room: Chest x-ray was unremarkable. Urinalysis was still being awaited and CT scan of the head was also negative. Script Writer was consulted by the ER physician for asymptomatic bradycardia. Past History Past Medical History: arthritis, GERD, hypertension, stroke, other (Schizophrenia,hemmorhoidectomy. tubal ligation. cardiac ablation, skin graft,Asthma) Social history: other (Lives alone) Family history: no significant family history Medications and Allergies Allergies Allergy/AdvReac Type Severity Reaction Status Date / Time No Known Allergies Allergy Verified 06/22/20 17:20 Home Medications Medication Instructions Recorded Confirmed Last Taken Type Ziprasidone [Geodon] 20 mg PO DAILY 09/26/14 01/23/20 10/28/15 History Benztropine [Cogentin] 1 tab PO BID 11/01/15 01/23/20 10/28/15 History FLUoxetine HCL [PROzac] 40 mg PO QDAY 10/06/18 01/23/20 Unknown History Ferrous Sulfate [Ferrous Sulfate 324 mg PO DAILY 10/06/18 01/23/20 Unknown History 324 MG] amLODIPine 5 mg PO DAILY 10/06/18 01/23/20 Unknown History Pantoprazole [Protonix TAB] 40 mg PO QDAY #30 tablet 07/04/19 01/23/20 Unknown Rx Ciprofloxacin HCl [Ciprofloxacin 500 mg PO Q12HR #7 tab 01/25/20 Unknown Rx TAB] Naproxen [Naprosyn] 500 mg PO BID #20 tablet 02/21/20 Unknown Rx HYDROcodone/APAP 5-325 [[place] 1 each PO Q6HR PRN #12 tablet 03/02/20 Unknown Rx 5-325 mg TAB] LORazepam [Ativan] 1 mg PO QHS #30 tab 04/04/20 Unknown Rx Morphine Concentrate [MORPHINE 10 mg PO QHS #30 ml 04/04/20 Unknown Rx Conc 20 MG/ML ORAL LIQ] Active Meds: Active Medications Acetaminophen (Acetaminophen 325 Mg Tab) 650 mg PO Q4H PRN PRN Reason: Pain MILD(1-3)/Fever >100.5/HOFFMAN Ondansetron HCl (Ondansetron 4 Mg/2 Ml Inj) 4 mg IV Q8H PRN PRN Reason: Nausea And Vomiting Review of Systems ROS unobtainable: due to mental status Exam - Constitutional Vitals: Temp Pulse Resp BP Pulse Ox 98.3 F 68 16 180/77 99 06/22/20 17:15 06/22/20 22:00 06/22/20 22:06 06/22/20 22:00 06/22/20 22:00 General appearance: Present: no acute distress, well-nourished - EENT Eyes: Present: PERRL, EOM intact. Absent: scleral icterus ENT: hearing intact, clear oral mucosa, dentition normal - Neck Neck: Present: supple, normal ROM - Respiratory Respiratory effort: normal Respiratory: bilateral: CTA - Cardiovascular Rhythm: regular Heart Sounds: Present: S1 & S2. Absent: gallop, systolic murmur, diastolic murmur, rub, click - Extremities Extremities: no ischemia, pulses intact, pulses symmetrical, No edema, normal temperature, normal color, Full ROM Peripheral Pulses: within normal limits - Abdominal General gastrointestinal: Present: soft, non-tender, non-distended, normal bowel sounds. Absent: mass - Integumentary Integumentary: Present: clear, warm, dry, normal turgor. Absent: rash - Musculoskeletal Musculoskeletal: strength equal bilaterally - Psychiatric Psychiatric: appropriate mood/affect, intact judgment & insight, memory intact, cooperative - Neurologic Neurologic: CNII-XII intact, no focal deficits, moves all extremities HEART Score - HEART Score Troponin: Troponin T < 0.010 ng/mL (0.00-0.029) 06/22/20 19:57 Results - Labs CBC & Chem 7: 06/23/20 04:13 06/23/20 04:13 Labs: Abnormal lab results 06/22/20 06/22/20 06/22/20 Range/Units 17:46 17:46 17:46 RBC 3.38 L (3.65-5.03) M/mm3 RDW 12.9 L (13.2-15.2) % Lymph % (Auto) 37.8 H (13.4-35.0) % [place] % (Auto) 8.5 H (0.0-7.3) % Eos % (Auto) 7.2 H (0.0-4.3) % INR 1.14 H (0.87-1.13) Magnesium 1.50 L (1.7-2.3) mg/dL Total Creatine Kinase 172 H (30-135) units/L Albumin 3.6 L (3.9-5) g/dL Assessment and Plan - Patient Problems (1) Symptomatic bradycardia Current Visit: Yes Status: Acute Plan to address problem: Patient admitted and placed on telemetry. We will schedule patient for echocardiogram. Consult placed to cardiology for evaluation. (2) Altered mental status Current Visit: Yes Status: Acute Plan to address problem: Etiology is unclear. Work-up so far has been negative. Possibly secondary to side effects of medications. Urinalysis is still being awaited. (3) Hypertension Current Visit: No Status: Acute Plan to address problem: We will resume routine home medications as needed and monitor blood pressure closely. (4) Schizophrenia Current Visit: No Status: Acute Qualifiers: Schizophrenia type: unspecified Qualified Code(s): F20.9 - Schizophrenia, unspecified Plan to address problem: Patient has known history of schizophrenia. . We will resume routine home medications as needed. (5) DVT prophylaxis Current Visit: No Status: Acute Plan to address problem: Patient placed on subcutaneous heparin. (6) Full code status Current Visit: No Status: Acute Plan to address problem: Patient is full code.
[2020-06-23] MEDS: SODIUM CHLORIDE 0.9% 1000 ML 1,000 ML IV SCH ×2 (02:45→19:00)
[2020-06-23 04:45] LABS: Basophils # (Auto) 0.1 K/mm3 (0.0-0.1); Basophils % (Auto) 1.8 % (0.0-1.8); Eosinophils # (Auto) 0.5 K/mm3 (0.0-0.4); Eosinophils % (Auto) 10.1 % (0.0-4.3); Hemoglobin 10.5 gm/dl (10.1-14.3); Lymphocytes # (Auto) 1.8 K/mm3 (1.2-5.4); Lymphocytes % (Auto) 33.6 % (13.4-35.0); Mean Corpuscular HGB Conc 33 % (30-34); Mean Corpuscular Volume 92 fl (79-97); Monocytes # (Auto) 0.5 K/mm3 (0.0-0.8); Monocytes % (Auto) 8.5 % (0.0-7.3); Platelet Count 323 K/mm3 (140-440); Red Cell Distribution Width 12.4 % (13.2-15.2)
[2020-06-23 04:59] LABS: INR 1.16 (0.87-1.13)
[2020-06-23 05:04] LABS: Blood Urea Nitrogen 14 mg/dL (7-17); Calcium 8.8 mg/dL (8.4-10.2); Hemolysis Index 8
[2020-06-23 05:05] LABS: BUN/Creatinine Ratio 28
--- NOTE | 2020-06-23 09:12 | Consultation ---
History of Present Illness Consult date: 06/23/20 Requesting physician: LEXY BLACKMON History of present illness: Patient is a 74-year-old female with a significant medical history of dementia, hypertension, past CVA, AVNRT ablation. Patient has been seen by Dr. Miner, electrophysiology with our office but has not been seen since 2017. Patient presents to [facility] emergency room for evaluation of syncopal episode with ground- level fall and altered mental status which has reportedly been worsening x1 week. Patient is a poor historian but at the time of interview she denies any weakness, dizziness, chest pain, shortness of breath, abdominal pain, N/V/D, recent illness or known exposures. Patient reports no significant history of kidney or liver disease, pulmonary VTE, AMI, cardiomyopathy, DVT. Son reports patient has known to take extra doses of medication. Cardiology is consulted to evaluate syncopal episodes in setting of sinus bradycardia. Past History Past Medical History: arthritis, GERD, hypertension, stroke, other (Schizo phrenia,hemmorhoidectomy. tubal ligation. cardiac ablation, skin graft,Asthma) Social history: other (Lives alone) Family history: no significant family history Medications and Allergies Allergies Allergy/AdvReac Type Severity Reaction Status Date / Time No Known Allergies Allergy Verified 06/22/20 17:20 Home Medications Medication Instructions Recorded Confirmed Last Taken Type Ziprasidone [Geodon] 20 mg PO DAILY 09/26/14 01/23/20 10/28/15 History Benztropine [Cogentin] 1 tab PO BID 11/01/15 01/23/20 10/28/15 History FLUoxetine HCL [PROzac] 40 mg PO QDAY 10/06/18 01/23/20 Unknown History Ferrous Sulfate [Ferrous Sulfate 324 mg PO DAILY 10/06/18 01/23/20 Unknown History 324 MG] amLODIPine 5 mg PO DAILY 10/06/18 01/23/20 Unknown History Pantoprazole [Protonix TAB] 40 mg PO QDAY #30 tablet 07/04/19 01/23/20 Unknown Rx Ciprofloxacin HCl [Ciprofloxacin 500 mg PO Q12HR #7 tab 01/25/20 Unknown Rx TAB] Naproxen [Naprosyn] 500 mg PO BID #20 tablet 02/21/20 Unknown Rx HYDROcodone/APAP 5-325 [[place]amar 1 each PO Q6HR PRN #12 tablet 03/02/20 Unknown Rx 5-325 mg TAB] LORazepam [Ativan] 1 mg PO QHS #30 tab 04/04/20 Unknown Rx Morphine Concentrate [MORPHINE 10 mg PO QHS #30 ml 04/04/20 Unknown Rx Conc 20 MG/ML ORAL LIQ] Active Meds: Active Medications Acetaminophen (Acetaminophen 325 Mg Tab) 650 mg PO Q4H PRN PRN Reason: Pain MILD(1-3)/Fever >100.5/HOFFMAN Sodium Chloride (Nacl 0.9% 1000 Ml) 1,000 mls @ 75 mls/hr IV DIRECT TEN Last Admin: 06/23/20 02:45 Dose: 75 mls/hr Documented by: Magnesium Hydroxide (Magnesium Hydroxide (Mom) Oral Liqd Udc) 30 ml PO Q4H PRN PRN Reason: Constipation Ondansetron HCl (Ondansetron 4 Mg/2 Ml Inj) 4 mg IV Q8H PRN PRN Reason: Nausea And Vomiting Sodium Chloride (Sodium Chloride 0.9% 10 Ml Flush Syringe) 10 ml IV BID TEN Sodium Chloride (Sodium Chloride 0.9% 10 Ml Flush Syringe) 10 ml IV PRN PRN PRN Reason: LINE FLUSH Review of Systems Constitutional: no weight loss, no weight gain, no fever, no chills, no sweats Ears, nose, mouth and throat: no ear pain, no ear discharge, no decreased hearing, no nose pain, no nasal congestion, no nasal discharge Cardiovascular: syncope, lightheadedness, no chest pain, no orthopnea, no palpitations, no rapid/irregular heart beat, no edema, no shortness of breath Respiratory: no cough, no cough with sputum, no hemoptysis, no shortness of breath, no dyspnea on exertion Gastrointestinal: no abdominal pain, no nausea, no vomiting, no diarrhea Genitourinary Female: no pelvic pain, no flank pain Musculoskeletal: no neck stiffness, no neck pain, no shooting arm pain, no arm numbness/tingling, no low back pain, no shooting leg pain Integumentary: no rash, no pruritis, no redness, no sores, no wounds Neurological: syncope, no head injury, no paralysis, no weakness, no parathesias, no numbness, no tingling, no seizures Psychiatric: anxiety Endocrine: no cold intolerance, no heat intolerance Hematologic/Lymphatic: no easy bruising, no easy bleeding Allergic/Immunologic: no urticaria Physical Examination Last Vital Signs Temp 98.2 F 06/23/20 09:26 Pulse 70 06/23/20 09:50 Resp 18 06/23/20 09:26 BP 107/62 06/23/20 09:26 Pulse Ox 92 06/23/20 09:26 General appearance: no acute distress HEENT: Positive: PERRL, Normocephaly, Mucus Membranes Moist Neck: Positive: neck supple, trachea midline Cardiac: Positive: Reg Rate and Rhythm, S1/S2 Lungs: Positive: clear to auscultation, Normal Breath Sounds Neuro: Positive: Grossly Intact Abdomen: Positive: Unremarkable, Soft Skin: Negative: Rash, Wound Musculoskeletal: No Pain Extremities: Present: upper extr. pulses, lower extr. pulses. Absent: edema Results 06/23/20 04:13 06/23/20 04:13 Cardiac Enzymes 06/22/20 Range/Units 17:46 AST 22 (5-40) units/L Coagulation 06/22/20 06/23/20 Range/Units 17:46 04:13 PT 14.4 14.6 (12.2-14.9) Sec. INR 1.14 H 1.16 H (0.87-1.13) APTT 31.2 (24.2-36.6) Sec. CBC 06/22/20 06/23/20 Range/Units 17:46 04:13 WBC 6.1 5.4 (4.5-11.0) K/mm3 RBC 3.38 L 3.50 L (3.65-5.03) M/mm3 Hgb 10.3 10.5 (10.1-14.3) gm/dl Hct 31.7 32.0 (30.3-42.9) % Plt Count 292 323 (140-440) K/mm3 Lymph # (Auto) 2.3 1.8 (1.2-5.4) K/mm3 Morrow # (Auto) 0.5 0.5 (0.0-0.8) K/mm3 Eos # (Auto) 0.4 0.5 H (0.0-0.4) K/mm3 Baso # (Auto) 0.0 0.1 (0.0-0.1) K/mm3 Comprehensive Metabolic Panel 06/22/20 06/23/20 Range/Units 17:46 04:13 Sodium 138 139 (137-145) mmol/L Potassium 3.8 3.4 L (3.6-5.0) mmol/L Chloride 101.6 102.0 (98-107) mmol/L Carbon Dioxide 28 28 (22-30) mmol/L BUN 13 14 (7-17) mg/dL Creatinine 0.7 0.5 L (0.6-1.2) mg/dL Glucose 73 53 L (65-100) mg/dL Calcium 9.1 8.8 (8.4-10.2) mg/dL AST 22 (5-40) units/L ALT 11 (7-56) units/L Alkaline Phosphatase 86 (35-129) units/L Total Protein 7.5 (6.3-8.2) g/dL Albumin 3.6 L (3.9-5) g/dL - Imaging and Cardiology Echo: pending EKG: report reviewed, image reviewed EKG interpretations - Telemetry EKG Rhythm: Sinus Rhythm - EKG Sinus rhythms and dysrhythmias: sinus bradycardia Assessment and Plan #Syncopal episode in setting of s/p AVNRT ablation * 12-lead reviewed no ST segment elevation. Troponins are negative x2. WA is ruled out. Will repeat troponin in a.m. * Echocardiogram is pending. * Orthostatic vital signs are ordered. * Carotid ultrasound is pending. * Labs reviewed no indication for anemia. Blood glucose inpatient readings have been 73 and 53 respectively. We will continue to monitor BG. Hyperglycemia may be culprit in evaluating syncopal episode * Patient's home medication list contain multiple medications which may contribute to syncopal episode including Ativan 1 mg p.o. nightly, morphine concentrate 10 mg p.o. nightly, Geodon 20 mg p.o. daily, and Lamar 5/325 as needed. Urinalysis is pending #Hypertension * Optimize antihypertensive regimen: Resume home medication amlodipine 5 mg p.o. daily #DVT prophylaxis * Heparin SQ We will follow This patient was seen in conjunction with Dr Inge Ivory who agrees with this assessment and plan of care. - Patient Problems (1) Symptomatic bradycardia Current Visit: Yes Status: Acute Plan to address problem: Patient admitted and placed on telemetry. We will schedule patient for echocardiogram. Consult placed to cardiology for evaluation. (2) Altered mental status Current Visit: Yes Status: Acute Plan to address problem: (3) Hypertension Current Visit: No Status: Acute Plan to address problem: (4) Schizophrenia Current Visit: No Status: Acute Qualifiers: Schizophrenia type: unspecified Qualified Code(s): F20.9 - Schizophrenia, unspecified Plan to address problem: (5) DVT prophylaxis Current Visit: No Status: Acute Plan to address problem:
[2020-06-23] MEDS ORDERED: POTASSIUM CHLORIDE ER 20 MEQ TAB PO SCH (10:00)
--- NOTE | 2020-06-23 14:12 | Progress Note ---
Assessment and Plan --Symptomatic bradycardia Patient admitted and placed on telemetry. We will schedule patient for echocardiogram. Consult placed to cardiology for evaluation. --Acute toxic encephalopathy Likely secondary from medications Mental status now improved CT head without any acute process, consult psych -- Hypertension Monitor BP and hold any beta-daniel for now Continue amlodipine -- Schizophrenia Continue Zyprexa for now consult psych --Status post fall, consult PT for further evaluation --History of dementia, continue supportive care follow clinically --Moderate protein calorie malnutrition, nutrition consult, continue nutritional supplements --History of GERD, continue PPI -- DVT prophylaxis -Lovenox Daily clinical course: 06/23/20: Continue to follow clinically, wait for PT eval 2D echo study results. Hold psych medications for now, consult psychiatry for medication adjustment. Subjective Date of service: 06/23/20 Interval history: Patient seen and examined. Medical records and medication list reviewed. No acute event overnight noted by the RN. Patient denies any chest pain or difficulty breathing. Patient is tolerating diet. Patient is alert and oriented x3 Discussed plan of care at bedside with patient. Objective - Exam Narrative Exam: GENERAL: elderly -[place] female lying on bed appeared to be in no discomfort but appears slightly malnourished. HEENT: Normocephalic. Atraumatic. No conjunctival congestion or icterus. Patient has moist mucous membranes. NECK: Supple. Trachea midline. CHEST/LUNGS: Clear to auscultated bilaterally, breathing nonlabored. No wheezes crackles or rhonchi. HEART/CARDIOVASCULAR: Regular in rate and rhythm. S1 and S2 positive. ABDOMEN: Abdomen is soft, nontender. Patient has normal bowel sounds. SKIN: There is no rash. Warm and dry. NEURO: No focal motor deficit. Follows command. MUSCULOSKELETAL: No joint effusion or tenderness. EXTRIMITY: No edema, no cyanosis or clubbing. PSYCH: Cooperative. - Constitutional Vitals: Vital Signs - 12hr 06/23/20 06/23/20 06/23/20 03:50 09:26 09:50 Temperature 98.9 F 98.2 F Pulse Rate 63 75 70 Respiratory 16 18 Rate Blood Pressure 138/72 107/62 O2 Sat by Pulse 96 92 Oximetry - Labs CBC & Chem 7: 06/24/20 05:37 06/24/20 05:37 Labs: Abnormal lab results 06/22/20 06/22/2021 Range/Units 17:46 17:46 17:46 RBC 3.38 L (3.65-5.03) M/mm3 RDW 12.9 L (13.2-15.2) % Lymph % (Auto) 37.8 H (13.4-35.0) % Tillman % (Auto) 8.5 H (0.0-7.3) % Eos % (Auto) 7.2 H (0.0-4.3) % Eos # (Auto) (0.0-0.4) K/mm3 INR 1.14 H (0.87-1.13) Potassium (3.6-5.0) mmol/L Creatinine (0.6-1.2) mg/dL Glucose (65-100) mg/dL Magnesium 1.50 L (1.7-2.3) mg/dL Total Creatine Kinase 172 H (30-135) units/L Albumin 3.6 L (3.9-5) g/dL 06/22/20 06/23/20 06/23/20 Range/Units 19:57 04:13 04:13 RBC 3.50 L (3.65-5.03) M/mm3 RDW 12.4 L (13.2-15.2) % Lymph % (Auto) (13.4-35.0) % Tillman % (Auto) 8.5 H (0.0-7.3) % Eos % (Auto) 10.1 H (0.0-4.3) % Eos # (Auto) 0.5 H (0.0-0.4) K/mm3 INR 1.16 H (0.87-1.13) Potassium (3.6-5.0) mmol/L Creatinine (0.6-1.2) mg/dL Glucose (65-100) mg/dL Magnesium 1.60 L (1.7-2.3) mg/dL Total Creatine Kinase (30-135) units/L Albumin (3.9-5) g/dL 06/23/20 Range/Units 04:13 RBC (3.65-5.03) M/mm3 RDW (13.2-15.2) % Lymph % (Auto) (13.4-35.0) % Tillman % (Auto) (0.0-7.3) % Eos % (Auto) (0.0-4.3) % Eos # (Auto) (0.0-0.4) K/mm3 INR (0.87-1.13) Potassium 3.4 L (3.6-5.0) mmol/L Creatinine 0.5 L (0.6-1.2) mg/dL Glucose 53 L (65-100) mg/dL Magnesium (1.7-2.3) mg/dL Total Creatine Kinase (30-135) units/L Albumin (3.9-5) g/dL HEART Score - HEART Score Troponin: Troponin T < 0.010 ng/mL (0.00-0.029) 06/22/20 19:57
--- NOTE | 2020-06-23 17:11 | Vascular Lab Report ---
Duplex carotid sonography with spectral analysis Indication: syncope Mild to moderate carotid atherosclerotic changes are seen in the bulb regions, more on the left. In the right internal carotid artery though there is no significant elevation of the peak systolic ve locities, the end-diastolic velocity is slightly elevated in the distal internal carotid artery. Peak systolic velocity of the right ICA is 91 cm/s. End-diastolic maximal velocity in the internal caroti d artery distally is 41 cm/s. In the left internal carotid artery though there is no significant elevation of the peak systolic bonny ocities, the end-diastolic velocity is slightly elevated in the mid to distal internal carotid artery . Peak systolic velocity of the left ICA is 124 cm/s. End-diastolic maximal velocity in the internal carotid artery distally is 43 cm/s. Right ICA/CCA peak systolic ratio: 1.15 Left ICA/CCA peak systolic ratio: 1.75 Vertebral flow is antegrade bilaterally. Impression: Mildly abnormal findings with evidence of hemodynamically significant stenosis in the 50- 75% range by NASCET-type criteria. MRA or CTA may be useful. Signer Name: Meng Kincaid MD Signed: 06/23/2020 5:06 PM Workstation Name: [id number]
[2020-06-24 06:34] LABS: Hematocrit 31.6 % (30.3-42.9); Hemoglobin 10.6 gm/dl (10.1-14.3); Mean Corpuscular HGB Conc 33 % (30-34); Mean Corpuscular Volume 91 fl (79-97); Platelet Count 288 K/mm3 (140-440); Red Blood Count 3.46 M/mm3 (3.65-5.03); Red Cell Distribution Width 12.4 % (13.2-15.2)
[2020-06-24 06:45] LABS: Blood Urea Nitrogen 17 mg/dL (7-17); Calcium 8.8 mg/dL (8.4-10.2); Hemolysis Index 12
[2020-06-24 06:46] LABS: BUN/Creatinine Ratio 28
[2020-06-24] MEDS ORDERED: NON-FORMULARY EACH (Ferrous Sulfate [Ferrous Sulfate 324 Mg] 324 MG Tablet.Dr) PO SCH (10:00)
[2020-06-24] MEDS ORDERED: POTASSIUM CHLORIDE ER 20 MEQ TAB PO SCH (10:00)
[2020-06-24] MEDS ORDERED: PANTOPRAZOLE 40 MG TAB PO SCH (10:00)
[2020-06-24] MEDS ORDERED: amLODIPine 5 MG TAB PO SCH (10:00)
[2020-06-24] MEDS ORDERED: FERROUS SULFATE 325 MG TAB PO SCH (10:00)
[2020-06-24] MEDS ORDERED: FLUoxetine 20 MG CAP PO SCH (10:00)
[2020-06-24] MEDS ORDERED: NON-FORMULARY EACH (Fluoxetine Hcl [Prozac] 40 MG Capsule) PO SCH (10:00)
--- NOTE | 2020-06-24 10:02 | Consultation ---
History of Present Illness - Reason for Consult Consult date: 06/24/20 Reason for consult: Med management - History of Present Psychiatric Illness Glenda Henriquez is a 74y/o female patient who states she came to the hospital for a fall and states she was hurting. The patient is calm and cooperative. She is a/o x 3. She says she has a history of schizophrenia. The patient did not remember her meds but states she needed to be back on some. She denies SI/HI or ever having an attempt. She also denies hallucinations of any kind. The patient denies any illicit drug use. PAST PSYCHIATRIC HISTORY Diagnoses: schizophrenia Suicide attempts or Self-harm behavior: Denies Prior psychiatric hospitalizations: yes Substance Abuse history: Denies Previous psychiatric medications tried: could not recall Outpatient treatment: None reported PAST MEDICAL HISTORY: None reported Family Psychiatric History: None reported or documented SOCIAL HISTORY Marital Status: Living Arrangements: Alone Employment Status: Retired Access to guns/weapons: None reported Education: high school History of Abuse: None reported Legal History: None reported REVIEW OF SYSTEMS Constitutional: Negative for weight loss ENT: Negative for stridor Respiratory: Negative for cough or hemoptysis All other systems reviewed and are negative MENTAL STATUS EXAMINATION General Appearance and Behavior: Age appropriate, good hygiene, wearing ap propriate clothes, good eye contact, calm and cooperative polite with questioning. Cooperation: Participating/engaged Psychomotor Behavior: unremarkable and within normal limits Mood: Good Affect and affective range: congruent with mood Thought Process: Fluent/Logical Thought Content: None Speech: Normal volume, Regular rate and rhythm, Intellectual Functioning: Average Suicidal Ideation: Denies Homicidal Ideation: Denies Hallucinations: Denies Delusions: None elicited Impulse Control: Unimpaired Insight and Judgment: Limited insight and judgment Memory: Normal Attention: Normal Orientation: Alert, oriented Assessment (1) Hx Schizophrenia Current Visit: Yes Status: Acute Treatment Plan Agree with prozac Restart Zyprexa 10mg po daily Sitter: Defer to primary Medical: Per primary Disposition: Do not recommend acute psychiatric treatment at this time Will follow for med management. Thank you for this consult Case staffed with Dr. Galeana Medications and Allergies Allergies Allergy/AdvReac Type Severity Reaction Status Date / Time No Known Allergies Allergy Verified 06/22/20 17:20 Home Medications Medication Instructions Recorded Confirmed Last Taken Type Ziprasidone [Geodon] 20 mg PO DAILY 09/26/14 01/23/20 10/28/15 History Benztropine [Cogentin] 1 tab PO BID 11/01/15 01/23/20 10/28/15 History FLUoxetine HCL [PROzac] 40 mg PO QDAY 10/06/18 01/23/20 Unknown History Ferrous Sulfate [Ferrous Sulfate 324 mg PO DAILY 10/06/18 01/23/20 Unknown History 324 MG] amLODIPine 5 mg PO DAILY 10/06/18 01/23/20 Unknown History Pantoprazole [Protonix TAB] 40 mg PO QDAY #30 tablet 07/04/19 01/23/20 Unknown Rx Ciprofloxacin HCl [Ciprofloxacin 500 mg PO Q12HR #7 tab 01/25/20 Unknown Rx TAB] Naproxen [Naprosyn] 500 mg PO BID #20 tablet 02/21/20 Unknown Rx HYDROcodone/APAP 5-325 [[place] 1 each PO Q6HR PRN #12 tablet 03/02/20 Unknown Rx 5-325 mg TAB] LORazepam [Ativan] 1 mg PO QHS #30 tab 04/04/20 Unknown Rx Morphine Concentrate [MORPHINE 10 mg PO QHS #30 ml 04/04/20 Unknown Rx Conc 20 MG/ML ORAL LIQ] Active Meds: Active Medications Acetaminophen (Acetaminophen 325 Mg Tab) 650 mg PO Q4H PRN PRN Reason: Pain MILD(1-3)/Fever >100.5/HOFFMAN Amlodipine Besylate (Amlodipine 5 Mg Tab) 5 mg PO DAILY [facility] Ferrous Sulfate (Ferrous Sulfate 325 Mg Tab) 325 mg PO DAILY [facility] Fluoxetine HCl (Fluoxetine 20 Mg Cap) 40 mg PO QDAY [facility] Sodium Chloride (Nacl 0.9% 1000 Ml) 1,000 mls @ 75 mls/hr IV DIRECT TEN Last Admin: 06/23/20 19:00 Dose: 75 mls/hr Documented by: Magnesium Hydroxide (Magnesium Hydroxide (Mom) Oral Liqd Udc) 30 ml PO Q4H PRN PRN Reason: Constipation Ondansetron HCl (Ondansetron 4 Mg/2 Ml Inj) 4 mg IV Q8H PRN PRN Reason: Nausea And Vomiting Pantoprazole Sodium (Pantoprazole 40 Mg Tab) 40 mg PO QDAY [facility] Potassium Chloride (Potassium Chloride Er 20 Meq Tab) 20 meq PO QDAY [facility] Sodium Chloride (Sodium Chloride 0.9% 10 Ml Flush Syringe) 10 ml IV BID TEN Last Admin: 06/23/20 21:22 Dose: 10 ml Documented by: Sodium Chloride (Sodium Chloride 0.9% 10 Ml Flush Syringe) 10 ml IV PRN PRN PRN Reason: LINE FLUSH Mental Status Exam - Vital signs Last Vital Signs Temp 98.8 F 06/24/20 03:35 Pulse 50 L 06/24/20 03:35 Resp 16 06/24/20 03:35 BP 110/58 06/24/20 03:35 Pulse Ox 95 06/24/20 03:35 Results Result Diagrams: 06/24/20 05:37 06/24/20 05:37 Abnormal lab results 06/24/20 06/24/20 Range/Units 05:37 05:37 RBC 3.46 L (3.65-5.03) M/mm3 RDW 12.4 L (13.2-15.2) % D-Dimer 727.20 H (0-234) ng/mlDDU All other labs normal.
--- NOTE | 2020-06-24 11:54 | Electrocardiograph Report ---
[facility] Test Date: 2020-06-22 Test Time: 21:10:51 Pat Name: JIMMY ALVAREZ Department: Room: A471 1 Gender: F Director Maternal Child: : 1945 Requested By: ELLEN MCBRIDE Order Number: [id number] Reading MD: Princess Londono Measurements Intervals [place] Rate: 39 P: 40 NJ: 174 QRS: 11 QRSD: 93 T: 29 QT: 518 QTc: 420 Interpretive Statements Marked sinus bradycardia No previous ECG available for comparison Electronically Signed On 06-24-2020 11:53:50 EDT by Princess Londono
[2020-06-24 12:16] VITALS: BP 109/56
--- NOTE | 2020-06-24 15:05 | Discharge Summary ---
Providers - Providers Date of Admission: 06/22/20 22:15 Date of discharge: 06/24/20 Attending physician: JT NEGRETE 06/22/20 22:09 Consult to Physician [CONS] Stat Comment: Dr. Hoffmann spoke with Dr. Lewis @ [phone] Consulting Provider: JOAQUINA LEWIS Physician Instructions: Reason For Exam: Symptomatic bradycardia 06/23/20 09:39 Physical Therapy Evaluation and Treat [CONS] Routine Comment: Reason For Exam: Debility 06/23/20 14:08 Consult to Mental Health [CONS] Routine Reason For Exam: psych medication adjustment Primary care physician: JOHNATHON DAVE Hospitalization Condition: Stable Hospital course: 74-year-old female with known history of dementia, hypertension and CVA in the past presents to the emergency room accompanied by son for evaluation of frequent falls and changes in mental status ongoing for about a week. According to son patient is known to take extra doses of her medications at home. Upon arrival in the emergency room patient was found to be obtunded and she had sinus bradycardia on the EKG. Work-up in the emergency room: Chest x-ray was unremarkable. Urinalysis was still being awaited and CT scan of the head was also negative. Radiation Control Health Physicist was consulted by the ER physician for asymptomatic bradycardia. 2D echo revealed preserved EF Psychiatry was consulted for medication recommendation and psychiatry recommended to continue Prozac and Zyprexa. Psychiatry did not recommend any inpatient psychiatric management. Patient's mental status improved she was tolerating diet. Patient was evaluated by PT and recommended home health. Patient noted to have elevated D-dimer, CTA chest was obtained and that was negative for PE. CTA chest showed benign lung nodule and repeat CT recommended in one year for monitoring. Patient was discharged home with home health PT and hospice. Disposition: TO HOME OR SELFCARE Final Discharge Diagnosis (Prints w/discharge instructions): Acute toxic encephalopathy. Sinus bradycardia. Hypertension. Schizophrenia. History of dementia. GERD. History of fall. Moderate protein calorie malnutrition. History of CVA. Elevated D-dimer. Hypomagnesemia -repleted. Right Lung nodule - need repeat CT in one year Time spent for discharge: 34 minutes Core Measure Documentation - Palliative Care Palliative Care/ Comfort Measures: Hospice Care - Core Measures Any of the following diagnoses?: none Exam - Physical Exam Narrative exam: GENERAL: elderly -Nigerian female lying on bed appeared to be in no discomfort but appears slightly malnourished. HEENT: Normocephalic. Atraumatic. No conjunctival congestion or icterus. Patient has moist mucous membranes. NECK: Supple. Trachea midline. CHEST/LUNGS: Clear to auscultated bilaterally, breathing nonlabored. No wheezes crackles or rhonchi. HEART/CARDIOVASCULAR: Regular in rate and rhythm. S1 and S2 positive. ABDOMEN: Abdomen is soft, nontender. Patient has normal bowel sounds. SKIN: There is no rash. Warm and dry. NEURO: No focal motor deficit. Follows command. MUSCULOSKELETAL: No joint effusion or tenderness. EXTRIMITY: No edema, no cyanosis or clubbing. PSYCH: Cooperative. - Constitutional Vitals: Temp Pulse Resp BP Pulse Ox 98.6 F 52 L 18 109/56 97 06/24/20 12:15 06/24/20 12:15 06/24/20 12:15 06/24/20 12:15 06/24/20 12:15 Plan Activity: fall precautions Weight Bearing Status: Non-Weight Bearing Diet: low fat, low salt Special Instructions: home hospice Additional Instructions: Follow-up with psychiatry in 1 week Follow up with: JOHNATHON DAVE MD [Primary Care Provider] - 3-5 Days Prescriptions: Magnesium Oxide [Magnesium] 400 mg PO DAILY #7 capsule OLANzapine [Zyprexa] 10 mg PO QDAY #30 tablet
[2020-06-24] MEDS ORDERED: MAGNESIUM SULFATE 1 GM in SODIUM CHLORIDE 0.9% 50 ML IV ONE (16:00)
--- NOTE | 2020-06-24 16:30 | Cat Scan Report ---
CTA CHEST WITH IV CONTRAST INDICATION: Possible pulmonary embolism. TECHNIQUE: Axial CT images were obtained through the chest after injection of 100 cc Omnipaque 350 IV contrast. 3 plane MIP reconstructions were produced. All CT scans at this location are performed using CT dose reduction for ALARA by means of automated exposure control. COMPARISON: CTA chest from 01/23/2020. FINDINGS: PULMONARY ARTERIES: No pulmonary emboli. AORTA AND ARTERIES: The aorta is normal in caliber and mildly calcified. No significant coronary athe rosclerosis or other significant abnormalities. HEART: No significant abnormality. MEDIASTINUM: No significant abnormality. LUNGS: A noncalcified right apical nodule is minimally smaller, measuring up to 7.5 mm on image 18 of series 2, previously 8.4 mm by remeasurement. There is mild dependent bilateral atelectasis with a t race left pleural effusion. No pneumothorax or other significant abnormality. ADDITIONAL FINDINGS: None. UPPER ABDOMEN: No acute findings. BONES: No significant osseous abnormality. IMPRESSION: 1. No CT evidence for pulmonary embolism. 2. Slightly smaller right apical nodule is favored to be benign. A follow-up CT of the chest without contrast in 12 months is recommended. 3. Additional findings as above. Signer Name: Enrique Barnett MD Signed: 06/24/2020 4:25 PM Workstation Name: [employer]
--- NOTE | 2020-06-24 21:41 | Progress Note ---
Assessment and Plan Echo findings reviewed - EF 60-65%, impaired LV relaxation, mildly dilated RV, no significant valvular abnormalities. Will defer to Primary for confirmatory testing of PE given elevated D-dimer. Carotid Dopplers noted - evidence of significant stenosis in the 50-75% range. Orthostatic VS pending. Continue tele monitoring. F/u BMP & Mg in AM. Pt seen in conjunction with Dr. Inge Ivory, who agrees with the assessment and plan of care. - Patient Problems (1) Syncope and collapse Status: Acute (2) Symptomatic bradycardia Status: Acute (3) History of atrioventricular wilda ablation Status: Chronic (4) Hypertension Status: Chronic Qualifiers: Hypertension type: essential hypertension Qualified Code(s): I10 - Essential (primary) hypertension (5) History of CVA (cerebrovascular accident) Status: Chronic (6) Schizophrenia Status: Chronic Subjective Date of service: 06/24/20 Principal diagnosis: Syncope Interval history: Ambulating with staff upon assessment this AM. Denies any cardiac complaints. SR 60s on tele this AM (down o 45-50s overnight). Objective Last Vital Signs Temp 98.6 F 06/24/20 12:15 Pulse 52 L 06/24/20 12:15 Resp 18 06/24/20 12:15 BP 109/56 06/24/20 12:15 Pulse Ox 97 06/24/20 12:15 - Physical Examination General: No Apparent Distress HEENT: Positive: EOMI, Normocephaly, Mucus Membranes Moist Neck: Positive: neck supple, trachea midline. Negative: JVD/HJR Cardiac: Positive: Reg Rate and Rhythm, S1/S2. Negative: Audible Murmur Lungs: Positive: clear to auscultation Neuro: Positive: Grossly Intact Abdomen: Positive: Soft. Negative: Firm Skin: Negative: Rash, Wound Musculoskeletal: No Pain Extremities: Present: upper extr. pulses, lower extr. pulses. Absent: edema - Labs and Meds CBC 06/24/20 Range/Units 05:37 WBC 6.7 (4.5-11.0) K/mm3 RBC 3.46 L (3.65-5.03) M/mm3 Hgb 10.6 (10.1-14.3) gm/dl Hct 31.6 (30.3-42.9) % Plt Count 288 (140-440) K/mm3 Comprehensive Metabolic Panel 06/24/20 Range/Units 05:37 Sodium 139 (137-145) mmol/L Potassium 4.4 D (3.6-5.0) mmol/L Chloride 103.1 (98-107) mmol/L Carbon Dioxide 28 (22-30) mmol/L BUN 17 (7-17) mg/dL Creatinine 0.6 (0.6-1.2) mg/dL Glucose 89 (65-100) mg/dL Calcium 8.8 (8.4-10.2) mg/dL - Imaging and Cardiology EKG: report reviewed, image reviewed Echo: report reviewed (06/23/2020 - EF 60-65%, no significant valvular abnormalities) - Telemetry EKG Rhythm: Sinus Rhythm - EKG Sinus rhythms and dysrhythmias: sinus bradycardia
== END 2020-06-24 16:30 | disposition hospice, home (50) | DRG 92 ==
LOC: ED 15:17 → 4A 22:15
PROVIDERS: ADMIT Internal Medicine Geriatric Medicine; ATTEND Internal Medicine
DX: G92 Toxic encephalopathy (principal); E44.0 Moderate protein-calorie malnutrition; I42.9 Cardiomyopathy, unspecified; R00.1 Bradycardia, unspecified; F20.9 Schizophrenia, unspecified; F03.90 Unspecified dementia, unspecified severity, without behavioral disturbance, psychotic disturbance, mood disturbance, and anxiety; M19.90 Unspecified osteoarthritis, unspecified site; K21.9 Gastro-esophageal reflux disease without esophagitis; E83.42 Hypomagnesemia; R91.1 Solitary pulmonary nodule; I10 Essential (primary) hypertension; Z86.73 Personal history of transient ischemic attack (TIA), and cerebral infarction without residual deficits; Z86.718 Personal history of other venous thrombosis and embolism; Z98.51 Tubal ligation status; Z79.899 Other long term (current) drug therapy; Z68.20 Body mass index [BMI] 20.0-20.9, adult
CPT/HCPCS: 36415; 70450; 71046; 71275; 72125; 80048; 80053; 82550; 83735; 84439; 84443; 84484; 85025; 85027; 85379; 85610; 85730; 93005; 93306; 93880; G0378; J0461; J7030; Q9967

== ENCOUNTER 2020-09-02 12:02 | Emergency (ER) | payer MEDICARE ==
[2020-09-02 13:18] VITALS: BP 110/68
--- NOTE | 2020-09-02 13:21 | Emergency Department Report ---
- General Chief Complaint: Upper Respiratory Infection Stated Complaint: DRY COUGH/FEEL LIKE VOMITING PUI?: No Time Seen by Provider: 09/02/20 13:02 Source: patient Mode of arrival: Ambulatory Limitations: No Limitations - History of Present Illness Initial Comments: Chief complaint: Deep dry cough HPI: This is a 75-year-old female with history of dementia, hypertension, schizophrenia, GERD, asthma CVA who presents with a dry cough for 2 weeks. Patient denies tobacco abuse. She denies fever shortness of breath. I have reviewed electronic record. CT angio chest was obtained while patient was admitted for evaluation of frequent falls. CT angiogram of the chest was negative for pulmonary embolism at that time. MD Complaint: cough -: Gradual, week(s) (2 weeks) Severity: mild Consistency: constant Improves With: nothing Worsens With: nothing Associated Symptoms: denies other symptoms - Related Data Home Medications Medication Instructions Recorded Confirmed Last Taken FLUoxetine HCL [PROzac] 40 mg PO QDAY 10/06/18 01/23/20 Unknown Ferrous Sulfate [Ferrous Sulfate 324 mg PO DAILY 10/06/18 01/23/20 Unknown 324 MG] amLODIPine 5 mg PO DAILY 10/06/18 01/23/20 Unknown Previous Rx's Medication Instructions Recorded Last Taken Type Pantoprazole [Protonix TAB] 40 mg PO QDAY #30 tablet 07/04/19 Unknown Rx Magnesium Oxide [Magnesium] 400 mg PO DAILY #7 capsule 06/24/20 Unknown Rx OLANzapine [Zyprexa] 10 mg PO QDAY #30 tablet 06/24/20 Unknown Rx Cetirizine HCl [ZyrTEC 10mg cap] 10 mg PO DAILY 14 Days #14 capsule 09/02/20 Unknown Rx Allergies Allergy/AdvReac Type Severity Reaction Status Date / Time No Known Allergies Allergy Verified 09/02/20 12:26 ED Review of Systems ROS: Stated complaint: DRY COUGH/FEEL LIKE VOMITING Other details as noted in HPI Comment: All other systems reviewed and negative Constitutional: denies: fever, malaise Respiratory: cough. denies: shortness of breath Cardiovascular: denies: chest pain Gastrointestinal: denies: abdominal pain, nausea, vomiting Musculoskeletal: denies: back pain ED Past Medical Hx - Past Medical History Previous Medical History?: Yes Hx Hypertension: Yes Hx CVA: Yes Hx Heart Attack/AMI: No Hx Congestive Heart Failure: No Hx Diabetes: No Hx GERD: Yes Hx Liver Disease: No Hx Renal Disease: No Hx Sickle Cell Disease: No Hx Arthritis: Yes Hx Seizures: No Hx Psychiatric Treatment: Yes (schizophrenia) Hx Asthma: Yes Hx COPD: No Hx HIV: No Additional medical history: Heart racing, burned with hot oil ij feb 2019 - Surgical History Past Surgical History?: Yes Hx Pacemaker: No Hx Internal Defibrillator: No Additional Surgical History: hemmorhoidectomy. tubal ligation. cardiac ablation, skin graft - Social History Smoking Status: Never Smoker - Medications Home Medications: Home Medications Medication Instructions Recorded Confirmed Last Taken Type FLUoxetine HCL [PROzac] 40 mg PO QDAY 10/06/18 01/23/20 Unknown History Ferrous Sulfate [Ferrous Sulfate 324 mg PO DAILY 10/06/18 01/23/20 Unknown History 324 MG] amLODIPine 5 mg PO DAILY 10/06/18 01/23/20 Unknown History Pantoprazole [Protonix TAB] 40 mg PO QDAY #30 tablet 07/04/19 01/23/20 Unknown Rx Magnesium Oxide [Magnesium] 400 mg PO DAILY #7 capsule 06/24/20 Unknown Rx OLANzapine [Zyprexa] 10 mg PO QDAY #30 tablet 06/24/20 Unknown Rx Cetirizine HCl [ZyrTEC 10mg cap] 10 mg PO DAILY 14 Days #14 capsule 09/02/20 Unknown Rx ED Physical Exam - General Limitations: No Limitations General appearance: alert, in no apparent distress, other (Pleasant cooperative appears comfortable no acute distress) - Head Head exam: Present: atraumatic, normocephalic - Eye Eye exam: Present: normal appearance - ENT ENT exam: Present: mucous membranes moist - Neck Neck exam: Present: normal inspection, full ROM - Respiratory Respiratory exam: Present: normal lung sounds bilaterally. Absent: respiratory distress, wheezes, rales, rhonchi - Cardiovascular Cardiovascular Exam: Present: regular rate, normal rhythm, normal heart sounds. Absent: systolic murmur, diastolic murmur, rubs, gallop - GI/Abdominal GI/Abdominal exam: Present: soft, normal bowel sounds. Absent: distended, tenderness, guarding, rebound - Extremities Exam Extremities exam: Present: normal inspection - Neurological Exam Neurological exam: Present: alert, oriented X3 - Psychiatric Psychiatric exam: Present: normal affect, normal mood - Skin Skin exam: Present: warm, dry, intact, normal color. Absent: rash ED Course Vital Signs 09/02/20 09/02/20 12:31 13:12 Temperature 98.6 F 98.2 F Pulse Rate 69 78 Respiratory 18 16 Rate Blood Pressure 129/63 Blood Pressure 110/68 [Left] O2 Sat by Pulse 94 98 Oximetry ED Medical Decision Making - Medical Decision Making URI: Prescribed Zyrtec. Discharged home Repeat oxygen saturation 90% room air Critical care attestation.: If time is entered above; I have spent that time in minutes in the direct care of this critically ill patient, excluding procedure time. ED Disposition Clinical Impression: Upper respiratory infection Disposition: DC-01 TO HOME OR SELFCARE Is pt being admited?: No Does the pt Need Aspirin: No Condition: Stable Instructions: Cough, Adult, [id number] Prescriptions: Cetirizine HCl [ZyrTEC 10mg cap] 10 mg PO DAILY 14 Days #14 capsule
== END 2020-09-02 13:23 | disposition home or self-care (01) ==
LOC: ED 12:02
DX: J06.9 Acute upper respiratory infection, unspecified (principal); I10 Essential (primary) hypertension; K21.9 Gastro-esophageal reflux disease without esophagitis; F20.9 Schizophrenia, unspecified; Z98.890 Other specified postprocedural states; Z79.899 Other long term (current) drug therapy
CPT/HCPCS: 99282

== ENCOUNTER 2020-12-19 20:29 | Emergency (ER) | payer MEDICARE ==
--- NOTE | 2020-12-19 20:43 | Event Note ---
ED Screening Note Date of service: 12/19/20 Time: 20:41 ED Screening Note: 75-year-old -Russian female with a past medical history of dementia schizophrenia CVA Alzheimer's chronic cough presents to the emergency room complaining of a cough that she has had for 2 years. Son brings her room stating she is having shortness of breath. Family has not given her anything for her cough. Patient was last seen here in August for the same complaint. Patient does have a primary care provider but family has not taken the patient to be evaluated. It was noted that patient was satting between 93% to 95% on room air. She was not tachycardic and heart rate was at 86. This initial assessment/diagnostic orders/clinical plan/treatment(s) is/are subject to change based on patients health status, clinical progression and re- assessment by fellow clinical providers in the ED. Further treatment and workup at subsequent clinical providers discretion. Patient/guardian urged not to elope from the ED as their condition may be serious if not clinically assessed and managed. Initial orders include:
--- NOTE | 2020-12-19 21:48 | XRay Report ---
XR chest routine 2V INDICATION / CLINICAL INFORMATION: Shortness of breath cough for 2 years COMPARISON: None available. FINDINGS: SUPPORT DEVICES: None. HEART / MEDIASTINUM: Cardiac silhouette is enlarged. LUNGS / PLEURA: Interlobular interstitial thickening. Costophrenic sulci are sharp. No pneumothorax. ADDITIONAL FINDINGS: No significant additional findings. IMPRESSION: 1. Cardiomegaly with interstitial edema. Signer Name: Mina Mae MD Signed: 12/19/2020 9:44 PM Workstation Name: [id number]
[2020-12-19] MEDS ORDERED: FUROSEMIDE 40 MG/4 ML INJ IV ONE (21:51)
--- NOTE | 2020-12-19 22:08 | Emergency Department Report ---
ED Shortness of Breath HPI - General Chief Complaint: Upper Respiratory Infection Stated Complaint: SHORTNESS OF BREATH/DRY COUGH Time Seen by Provider: 12/19/20 21:49 Source: patient Mode of arrival: Ambulatory Limitations: Other - History of Present Illness Initial Comments: Patient presents with shortness of breath. She and her son provide history. This is been going on for 2 years. It is actually been worse over the last 4 days. It has been intermittent for 2 years but constant over the last 4 days. They actually describe orthopnea and waking up in the middle the night because she cannot breathe. There has been a dry and nonproductive cough. Patient and son deny fever or chills. The patient has had no chest pain. She has not noticed significant swelling in the feet or ankles. There is no vomiting or diarrhea. Patient has no history of recent travel or fever. She has had no known coronavirus exposure. She has been admitted before. This has not been an ongoing issue. Because it was worse over the last 4 days, the son brought her here. He states that he thought she might stop breathing "at any time." - Related Data Home Medications Medication Instructions Recorded Confirmed Last Taken FLUoxetine HCL [PROzac] 40 mg PO QDAY 10/06/18 01/23/20 Unknown Ferrous Sulfate [Ferrous Sulfate 324 mg PO DAILY 10/06/18 01/23/20 Unknown 324 MG] amLODIPine 5 mg PO DAILY 10/06/18 01/23/20 Unknown Previous Rx's Medication Instructions Recorded Last Taken Type Pantoprazole [Protonix TAB] 40 mg PO QDAY #30 tablet 07/04/19 Unknown Rx Magnesium Oxide [Magnesium] 400 mg PO DAILY #7 capsule 06/24/20 Unknown Rx OLANzapine [Zyprexa] 10 mg PO QDAY #30 tablet 06/24/20 Unknown Rx Cetirizine HCl [ZyrTEC 10mg cap] 10 mg PO DAILY 14 Days #14 capsule 09/02/20 Unknown Rx Furosemide [Lasix] 40 mg PO DAILY #5 tablet 12/20/20 Unknown Rx Potassium Chloride [K-Dur] 20 meq PO QDAY #5 tablet 12/20/20 Unknown Rx Allergies Allergy/AdvReac Type Severity Reaction Status Date / Time No Known Allergies Allergy Verified 09/02/20 12:26 ED Review of Systems ROS: Stated complaint: SHORTNESS OF BREATH/DRY COUGH Other details as noted in HPI Comment: All other systems reviewed and negative Constitutional: denies: fever Eyes: denies: vision change ENT: denies: throat pain Respiratory: see HPI Cardiovascular: denies: chest pain Endocrine: denies: unexplained weight loss Gastrointestinal: denies: abdominal pain Genitourinary: denies: dysuria Musculoskeletal: denies: back pain Skin: denies: rash Neurological: denies: headache Hematological/Lymphatic: denies: easy bruising ED Past Medical Hx - Past Medical History Previous Medical History?: Yes Hx Hypertension: Yes Hx CVA: Yes Hx Heart Attack/AMI: No Hx Congestive Heart Failure: No Hx Diabetes: No Hx GERD: Yes Hx Liver Disease: No Hx Renal Disease: No Hx Sickle Cell Disease: No Hx Arthritis: Yes Hx Seizures: No Hx Psychiatric Treatment: Yes (schizophrenia) Hx Asthma: Yes Hx COPD: No Hx HIV: No Additional medical history: Heart racing, burned with hot oil ij feb 2019 - Surgical History Past Surgical History?: Yes Hx Pacemaker: No Hx Internal Defibrillator: No Additional Surgical History: hemmorhoidectomy. tubal ligation. cardiac ablation, skin graft - Family History Family history: hypertension - Social History Smoking Status: Never Smoker Substance Use Type: None - Medications Home Medications: Home Medications Medication Instructions Recorded Confirmed Last Taken Type FLUoxetine HCL [PROzac] 40 mg PO QDAY 10/06/18 01/23/20 Unknown History Ferrous Sulfate [Ferrous Sulfate 324 mg PO DAILY 10/06/18 01/23/20 Unknown History 324 MG] amLODIPine 5 mg PO DAILY 10/06/18 01/23/20 Unknown History Pantoprazole [Protonix TAB] 40 mg PO QDAY #30 tablet 07/04/19 01/23/20 Unknown Rx Magnesium Oxide [Magnesium] 400 mg PO DAILY #7 capsule 06/24/20 Unknown Rx OLANzapine [Zyprexa] 10 mg PO QDAY #30 tablet 06/24/20 Unknown Rx Cetirizine HCl [ZyrTEC 10mg cap] 10 mg PO DAILY 14 Days #14 capsule 09/02/20 Unknown Rx Furosemide [Lasix] 40 mg PO DAILY #5 tablet 12/20/20 Unknown Rx Potassium Chloride [K-Dur] 20 meq PO QDAY #5 tablet 12/20/20 Unknown Rx ED Physical Exam - General Limitations: No Limitations, Other (Pulse ox noted and normal) General appearance: alert, in no apparent distress - Head Head exam: Present: atraumatic, normocephalic, normal inspection - Eye Eye exam: Present: normal appearance, EOMI. Absent: scleral icterus - ENT ENT exam: Present: normal exam, mucous membranes moist - Neck Neck exam: Present: normal inspection. Absent: meningismus - Respiratory Respiratory exam: Present: rales (Bilateral). Absent: respiratory distress - Cardiovascular Cardiovascular Exam: Present: regular rate, normal rhythm - GI/Abdominal GI/Abdominal exam: Present: soft. Absent: tenderness - Extremities Exam Extremities exam: Present: normal capillary refill. Absent: pedal edema - Back Exam Back exam: Absent: CVA tenderness (R), CVA tenderness (L) - Neurological Exam Neurological exam: Present: alert, oriented X3, normal gait. Absent: motor sensory deficit - Psychiatric Psychiatric exam: Present: normal affect, normal mood - Skin Skin exam: Present: warm, dry ED Course Vital Signs 12/19/20 12/19/20 20:34 22:42 Temperature 98.5 F Pulse Rate 84 88 Respiratory 16 Rate Blood Pressure 127/76 138/88 [Right] O2 Sat by Pulse 95 Oximetry - Reevaluation(s) Reevaluation #1: 12/19/20 22:08 Patient has been screened by an [facility]. I did review the x-ray and ordered labs. Lasix was ordered. Old records reviewed. Reevaluation #2: 12/20/20 00:51 Labs of been noted. Patient was discharged. ED Medical Decision Making - Lab Data Result diagrams: 12/19/20 22:40 12/19/20 22:40 Rhythm strip: Normal sinus rhythm without ectopy per monitor observe 10 seconds. - EKG Data -: EKG Interpreted by Me - EKG Data 12/19/20 22:52 2224-EKG shows normal sinus rhythm at 78. Patient has a normal QRS at 88. QT corrected is normal at 475. Patient has left axis deviation. There is no ST elevation to suggest STEMI. There is no ST depression suggestive of ischemia. She has T wave flattening in leads III, aVF, V3 through V6. There is early R wave progression. There does not appear to be a change from old. - Medical Decision Making Patient presents with shortness of breath. This been worse over the last 4 days despite having a chronic presentation. She does have evidence of some mild vascular congestion. She does not have evidence of STEMI. There is no renal dysfunction. She does not appear to be in any respiratory distress or have impending respiratory failure. She does not have increasing oxygen demand. There is no radiographic evidence of pneumonia or pneumothorax. She does not have symptoms that would suggest pulmonary embolism. Patient was treated empirically and referred for outpatient evaluation. Her son is concerned because she is also confused. He believes that she needs to be placed in a retirement. He will pursue outpatient evaluation for placement. Critical Care Time: No Critical care attestation.: If time is entered above; I have spent that time in minutes in the direct care of this critically ill patient, excluding procedure time. ED Disposition Clinical Impression: Dyspnea Qualifiers: Dyspnea type: shortness of breath Qualified Code(s): R06.02 - Shortness of breath Pulmonary edema Qualifiers: Chronicity: acute Qualified Code(s): J81.0 - Acute pulmonary edema Disposition: 01 HOME / SELF CARE / HOMELESS Is pt being admited?: No Condition: Stable Instructions: Shortness of Breath, Adult, [id number], Pulmonary Edema, [id number], Pulmonary Edema (ED) Additional Instructions: AVOID SALT. TAKE YOUR MEDICATION. RETURN FOR PROBLEMS. SEE YOUR DOCTOR FOR RECHECK. Prescriptions: Potassium Chloride [K-Dur] 20 meq PO QDAY #5 tablet Furosemide [Lasix] 40 mg PO DAILY #5 tablet Referrals: SRUTHI FINCH MD [Referring] - 3-5 Days COSTA BARRIENTOS MD [Staff Physician] - 3-5 Days
[2020-12-19 22:42] VITALS: BP 138/88
[2020-12-19 23:17] LABS: Hemoglobin 10.9 gm/dl (10.1-14.3); Mean Corpuscular HGB Conc 32 % (30-34); Mean Corpuscular Volume 92 fl (79-97); Platelet Count 300 K/mm3 (140-440); Red Blood Count 3.69 M/mm3 (3.65-5.03); Red Cell Distribution Width 12.9 % (13.2-15.2)
[2020-12-19 23:43] LABS: Blood Urea Nitrogen 14 mg/dL (7-17); Calcium 9.8 mg/dL (8.4-10.2); Hemolysis Index 29
[2020-12-19 23:45] LABS: BUN/Creatinine Ratio 23
--- NOTE | 2020-12-21 11:29 | Electrocardiograph Report ---
[facility] Test Date: 2020-12-17 Test Time: 20:00:47 Pat Name: JIMMY ALVAREZ Department: Room: Gender: F System Designer: : 1945 Requested By: SHARLA JADE Order Number: [id number] Reading MD: Lg Prescott Measurements Intervals Oil Trough Rate: 54 P: 66 WV: 151 QRS: 78 QRSD: 106 T: 56 QT: 438 QTc: 415 Interpretive Statements Sinus rhythm Probable left ventricular hypertrophy Inferior infarct, acute Compared to ECG 06/22/2020 21:10:51 Myocardial infarct finding now present Sinus bradycardia no longer present Electronically Signed On 12-21-2020 11:29:25 EST by Lg Prescott
--- NOTE | 2020-12-23 10:07 | Electrocardiograph Report ---
[facility] Test Date: 2020-12-19 Test Time: 22:24:54 Pat Name: JIMMY ALVAREZ Department: Room: Gender: F Quarrying Manager: RKOKU : 1945 Requested By: SHARLA JADE Order Number: [id number] Reading MD: Lg Prescott Measurements Intervals Secretary Rate: 78 P: 26 MO: 152 QRS: -32 QRSD: 88 T: 34 QT: 417 QTc: 475 Interpretive Statements Sinus rhythm Left axis deviation Consider anterior infarct Compared to ECG 06/22/2020 21:10:51 Left-axis deviation now present ST elevations in inferior leads improved. Electronically Signed On 12-23-2020 10:07:34 EST by Lg Prescott
== END 2020-12-20 01:26 | disposition home or self-care (01) ==
LOC: ED 20:29
DX: J81.0 Acute pulmonary edema (principal); R06.02 Shortness of breath; I10 Essential (primary) hypertension; Z86.73 Personal history of transient ischemic attack (TIA), and cerebral infarction without residual deficits; J45.909 Unspecified asthma, uncomplicated
CPT/HCPCS: 36415; 71046; 80048; 83880; 84484; 85027; 93005; 96374; 99284; J1940